=== PATIENT | male | born 1950 | race Caucasian/White ===

== ENCOUNTER 2016-08-09 19:29 | Emergency (ER) | payer OTHER ==
[2016-08-09 19:58] VITALS: BP 177/57
[2016-08-09] MEDS ORDERED: DIPH/PERTUSS(ACELL)/TETANUS VAC/PF 0.5 ML SYR (>=10YO) IM ONE (21:15)
[2016-08-09] MEDS ORDERED: HYDROCODONE/ACETAMINOPHEN 5-325 MG TABLET PO ONE (21:17)
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
[2016-08-10] MEDS ORDERED: HYDROCODONE/ACETAMINOPHEN 5-325 MG TABLET PO ONE ×2 (00:33→03:01)
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
[2016-08-10] MEDS ORDERED: DIPH/PERTUSS(ACELL)/TETANUS VAC/PF 0.5 ML SYR (>=10YO) IM ONE (03:19)
== END 2016-08-10 05:10 | disposition short-term general hospital (02) ==
LOC: ER 19:29
DX: S22.069A Unspecified fracture of T7-T8 vertebra, initial encounter for closed fracture (principal); S20.319A Abrasion of unspecified front wall of thorax, initial encounter; M54.6 Pain in thoracic spine; M79.631 Pain in right forearm; V59.49XA Driver of pick-up truck or van injured in collision with other motor vehicles in traffic accident, initial encounter
CPT/HCPCS: 71010; 72125; 72128; 90715; 99284

== ENCOUNTER 2017-07-01 22:13 | Inpatient (IN) | payer OTHER ==
[~2017-07-01 22:13] MED LIST: GLYCOPYRROLATE INJ 0.4 MG/2 ML VIAL ONE; NEOSTIGMINE METHYLSULFATE 10 MG/10 ML VIAL ONE; ONDANSETRON HCL INJ/PF 4 MG/2 ML SDV ONE; PHENYLEPHRINE HCL INJ/PF 10 MG/1 ML SDV ONE; ROCURONIUM BROMIDE INJ 50 MG/5 ML VIAL IV ONE; SUCCINYLCHOLINE CHLORIDE INJ 200 MG/10 ML VIAL ONE
[2017-07-01] MEDS ORDERED: MORPHINE SULFATE 10 MG/ML INJ IV PRN (22:34)
[2017-07-01] MEDS ORDERED: ONDANSETRON HCL INJ/PF 4 MG/2 ML SDV IV ONE (22:34)
--- NOTE | 2017-07-01 22:35 | ER Document Report ---
ED General - General Chief Complaint: Abdominal Pain Stated Complaint: ABDOMINAL PAIN Time Seen by Provider: 07/01/17 22:23 Notes: Patient is a 66-year-old male with past medical history of hypertension, hyperlipidemia, diabetes, who presents with 6 hours of severe ventral hernia pain. Patient reports a long-standing history of a ventral hernia he notes that sometimes it develops mild discomfort but is easily resolve if he pushes on the area or lies flat. He however today states that approximately 6 hours prior to arrival he noticed that the ventral hernia had become very firm and extremely painful. He describes it as a severe, constant, throbbing pain. He notes approximately 3-4 hours after onset of the pain he began vomiting and has continued to vomit since that time. He denies any history of similar symptoms in the past. Nothing improves or worsens his symptoms. He denies any fever or constitutional symptoms. He has not seen his general doctor regarding today's concerns. The ventral hernia has never been repaired in the past. TRAVEL OUTSIDE OF THE [place] IN LAST 30 DAYS: No - Related Data Allergies/Adverse Reactions: statins Allergy (Uncoded 12/27/16 21:17) Past Medical History - General Information source: Patient - Social History Smoking Status: Never Smoker Frequency of alcohol use: None Drug Abuse: None Lives with: Family Family History: Reviewed & Not Pertinent Endocrine Medical History: Reports: Hx Diabetes Mellitus Type 2 Renal/ Medical History: Denies: Hx Peritoneal Dialysis - Immunizations Hx Diphtheria, Pertussis, Tetanus Vaccination: Yes Review of Systems - Review of Systems Notes: Constitutional: Negative for fever. HENT: Negative for sore throat. Eyes: Negative for visual changes. Cardiovascular: Negative for chest pain. Respiratory: Negative for shortness of breath. Gastrointestinal: Positive for abdominal pain and vomiting Genitourinary: Negative for dysuria. Musculoskeletal: Negative for back pain. Skin: Negative for rash. Neurological: Negative for headaches, weakness or numbness. 10 point ROS negative except as marked above and in HPI. Physical Exam - Vital signs Vitals: Temp Pulse Resp BP Pulse Ox 97.6 F 63 16 153/53 H 97 07/01/17 22:35 07/01/17 22:35 07/01/17 22:35 07/01/17 22:35 07/01/17 22:35 Interpretation: Hypertensive Notes: PHYSICAL EXAMINATION: GENERAL: Appears obviously uncomfortable but in no acute distress HEAD: Atraumatic, normocephalic. EYES: Pupils equal round and reactive to light, extraocular movements intact, sclera anicteric, conjunctiva are normal. ENT: nares patent, oropharynx clear without exudates. Moist mucous membranes. NECK: Normal range of motion, supple without lymphadenopathy LUNGS: Breath sounds clear to auscultation bilaterally and equal. No wheezes rales or rhonchi. HEART: Regular rate and rhythm without murmurs ABDOMEN: Morbidly obese abdomen. There is a large ventral hernia to the right mid abdomen that is firm, exquisitely tender to palpation and unable to be reduced with direct palpation. EXTREMITIES: Normal range of motion, no pitting or edema. No cyanosis. NEUROLOGICAL: No focal neurological deficits. Moves all extremities spontaneously and on command. PSYCH: Normal mood, normal affect. SKIN: Warm, Dry, normal turgor, no rashes or lesions noted. Course - Re-evaluation Re-evalutation: 07/01/17 22:34 Patient presents with an acute incarcerated ventral hernia that apparently came out at 3 PM and has continued to persist with now associated vomiting. I am concerned that this is an acutely incarcerated hernia given the patient's degree of pain and the firm nature of the hernia on palpation. I am unable to reduce it with 5 minutes of continuous gentle pressure at the bedside. I have contacted the surgeon elevator constructor supervisor Dr. Fish and he will come to assess the patient. 07/01/17 23:02 Dr. Fish has accepted the patient to the OR for an acute incarcerated hernia. Basic laboratories will be obtained, IV will be established. He is NPO. - Vital Signs Vital signs: Temp Pulse Resp BP Pulse Ox 98.8 F 71 17 144/57 H 97 07/02/17 02:25 07/02/17 02:25 07/02/17 02:25 07/02/17 02:25 07/02/17 02:25 - Laboratory Result Diagrams: 07/01/17 23:27 07/01/17 23:27 Laboratory results interpreted by me: 07/01/17 07/01/17 23:27 23:27 WBC 12.3 H RDW 14.5 H Seg Neuts % (Manual) 93 H Lymphocytes % (Manual) 3 L Abs Neuts (Manual) 11.4 H Abs Lymphs (Manual) 0.4 L Sodium 145.3 H Potassium 5.2 H BUN 38 H Creatinine 1.30 H Est GFR (Non-Af Amer) 56 L Glucose 195 H Discharge - Discharge Clinical Impression: Incarcerated ventral hernia Condition: Fair Disposition: ADMITTED INPATIENT Admitting Provider: Surgicalist Unit Admitted: OR
[2017-07-01] MEDS ORDERED: FENTANYL CITRATE INJ/PF 250 MCG/5 ML AMPULE ONE (23:13)
[2017-07-01] MEDS ORDERED: MORPHINE SULFATE 10 MG/ML INJ ONE (23:14)
[2017-07-01] MEDS ORDERED: ACETAMINOPHEN 100 ML IV ONE (23:14)
[2017-07-01] MEDS ORDERED: MIDAZOLAM 2 MG/2 ML INJ ONE (23:14)
[2017-07-01] MEDS ORDERED: PROPOFOL INJ 200 MG/20 ML VIAL IV ONE (23:14)
--- NOTE | 2017-07-01 23:16 | PDOC H&P ---
History of Present Illness Patient complains of: abdominal pain, nausea, vomiting, incarcerated hernia History of Present Illness: JUDY SANTANA is a 66 year old male with a long-standing periumbilical, incisional hernia. The patient reports that at approximately 3 PM today the hernia protruded and became irreducible. The patient's pain has consistently increased since that time. The patient rates his pain as 10 out of 10 at present. Nothing makes the pain better, movement or palpation make it worse. The patient reports persistent, unrelenting nausea and vomiting. The patient denies chest pain, shortness of breath, dizziness, orthostasis, fatigue, blurry vision. He has experienced malaise. Past Medical History Cardiac Medical History: Reports: Coronary Artery Disease, Hyperlipidema, Hypertension Endocrine Medical History: Reports: Diabetes Mellitus Type 2 Past Surgical History Past Surgical History: Reports: Coronary Artery Bypass Graft, Other - Colon resection Social History Information Source: Patient Smoking Status: Never Smoker Frequency of Alcohol Use: Occasional Hx Recreational Drug Use: No Drugs: None Family History Family History: Reviewed & Not Pertinent Parental Family History Reviewed: Yes Children Family History Reviewed: Yes Sibling(s) Family History Reviewed.: Yes Medication/Allergy Home Medications: Amlodipine Besylate 5 mg PO DAILY 12/27/16 Aspirin [Aspirin EC] 81 mg PO DAILY 12/27/16 Atorvastatin Calcium 80 mg PO QHS 12/27/16 Cephalexin [Cephalexin 500 MG Capsule] 500 mg PO Q12H 12/27/16 Etodolac 300 mg PO TID 12/27/16 Finasteride 5 mg PO DAILY 12/27/16 Furosemide [Lasix] 40 mg PO BID 12/27/16 Lisinopril 40 mg PO DAILY 12/27/16 Metoprolol Tartrate 25 mg PO BID 12/27/16 Sertraline HCl 100 mg PO QHS 12/27/16 Tamsulosin HCl 0.4 mg PO QHS 12/27/16 Tramadol HCl 50 mg PO TID 12/27/16 Insulin Regular, Human [Novolin R] 100 unit IJ [id number] 12/28/16 Allergies/Adverse Reactions: statins Allergy (Uncoded 12/27/16 21:17) Review of Systems Constitutional: ABSENT: chills, fever(s), headache(s) Eyes: ABSENT: visual disturbances Nose, Mouth, and Throat: ABSENT: sore throat Cardiovascular: ABSENT: chest pain, dyspnea on exertion Respiratory: ABSENT: cough, dyspnea, hemoptysis Gastrointestinal: PRESENT: abdominal pain, bloating, nausea, vomiting Genitourinary: ABSENT: dysuria Musculoskeletal: PRESENT: other - Joint pain Integumentary: ABSENT: erythema, rash Neurological: ABSENT: abnormal movements, abnormal speech, confusion, dizziness Psychiatric: ABSENT: anxiety, depression, hallucinations Endocrine: ABSENT: cold intolerance, heat intolerance Hematologic/Lymphatic: ABSENT: easy bleeding, easy bruising, lymphadenopathy Physical Exam Vital Signs: Temp Pulse Resp BP Pulse Ox 97.6 F 63 16 153/53 H 97 07/01/17 22:35 07/01/17 22:35 07/01/17 22:35 07/01/17 22:35 07/01/17 22:35 Intake & Output 06/30/17 07/01/17 07/02/17 06:59 06:59 06:59 Weight 102.058 kg General appearance: PRESENT: mild distress Head exam: PRESENT: atraumatic, normocephalic Eye exam: PRESENT: EOMI, PERRLA. ABSENT: conjunctival injection, scleral icterus Mouth exam: PRESENT: moist, neck supple Teeth exam: ABSENT: poor dentation Neck exam: ABSENT: lymphadenopathy, meningismus, tenderness, thyromegaly, tracheal deviation Respiratory exam: PRESENT: clear to auscultation mariam. ABSENT: chest wall tenderness, rales, rhonchi Cardiovascular exam: PRESENT: RRR Pulses: PRESENT: normal radial pulses Vascular exam: PRESENT: normal capillary refill. ABSENT: pallor GI/Abdominal exam: PRESENT: distended, hernia - Incarcerated, tender, periumbilical., tenderness Rectal exam: PRESENT: deferred Extremities exam: PRESENT: joint swelling Neurological exam: PRESENT: alert, awake, oriented to person, oriented to place , oriented to time, CN II-XII grossly intact Psychiatric exam: ABSENT: agitated, depressed Skin exam: ABSENT: cyanosis, erythema, jaundice Assessment & Plan - Inpatient Certification Based on my medical assessment, after consideration of the patient's comorbidities, presenting symptoms, or acuity I expect that the services needed warrant INPATIENT care.: Yes I certify that my determination is in accordance with my understanding of Medicare's requirements for reasonable and necessary INPATIENT services [42 CFR 412.3e].: Yes Medical Necessity: Need For IV Fluids, Need for Surgery - Plan Summary Plan Summary: This is a 66-year-old morbidly obese male with an incarcerated, obstructed ventral hernia. Despite aggressive manipulation, the hernia could not be reduced at bedside. I have recommended surgical exploration to relieve the obstruction and hopefully avoid strangulation. I plan for exploratory laparotomy with reduction of the hernia and primary closure. This has been discussed with the patient and his family at length. They are in agreement with the treatment plan.
[2017-07-01] MEDS ORDERED: BUPIVACAINE HCL 0.25 % INJ/PF (2.5 MG/1 ML) 30 ML VIAL ONE (23:32)
[2017-07-01 23:41] LABS: HEMATOCRIT 41.5 % (37.9-51.0); MEAN CORPUSCULAR HEMOGLOBIN 30.9 pg (27.0-33.4); MEAN CORPUSCULAR HGB CONC 33.7 g/dL (32.0-36.0); MEAN CORPUSCULAR VOLUME 92 fl (80-97); PLATELET COUNT 172 10^3/uL (150-450); RED BLOOD COUNT 4.53 10^6/uL (4.35-5.55); RED CELL DISTRIBUTION WIDTH 14.5 % (11.5-14.0); WHITE BLOOD COUNT 12.3 10^3/uL (4.0-10.5)
[2017-07-02 00:04] LABS: ALANINE AMINOTRANSFERASE 23 U/L (21-72); ALBUMIN 4.2 g/dL (3.5-5.0); ALKALINE PHOSPHATASE 110 U/L (38-126); ANION GAP 15 (5-19); ASPARTATE AMINO TRANSFERASE 24 U/L (17-59); BILIRUBIN,DIRECT 0.4 mg/dL (0.0-0.4); BILIRUBIN,TOTAL 1.2 mg/dL (0.2-1.3); BLOOD UREA NITROGEN 38 mg/dL (7-20); CARBON DIOXIDE 23 mmol/L (22-30); CHLORIDE 107 mmol/L (98-107); GLUCOSE 195 mg/dL (75-110); POTASSIUM 5.2 mmol/L (3.6-5.0); SODIUM 145.3 mmol/L (137-145); TOTAL PROTEIN 6.9 g/dL (6.3-8.2)
[2017-07-02 00:06] LABS: ABSOLUTE LYMPHOCYTES# (MANUAL) 0.4 10^3/uL (0.5-4.7); ABSOLUTE MONOCYTES # (MANUAL) 0.5 10^3/uL (0.1-1.4); ABSOLUTE NEUTROPHILS# (MANUAL) 11.4 10^3/uL (1.7-8.2); BASOPHILS % (MANUAL) 0 % (0-2); EOSINOPHILS % (MANUAL) 0 % (0-6); LYMPHOCYTES % (MANUAL) 3 % (13-45); MONOCYTES % (MANUAL) 4 % (3-13); SEGMENTED NEUTROPHILS % (MAN) 93 % (42-78); TOTAL CELLS COUNTED 100
[2017-07-02 00:07] LABS: ANISOCYTOSIS SLIGHT; PLATELET COMMENT ADEQUATE; TOXIC GRANULATION SLIGHT; TOXIC VACUOLATION PRESENT
[2017-07-02] MEDS ORDERED: CEFAZOLIN INJ 1 GM VIAL ONE (00:28)
[2017-07-02] MEDS ORDERED: METRONIDAZOLE 500 MG/NS RTU 100 ML IV ONE (00:30)
[2017-07-02] MEDS ORDERED: MORPHINE SULFATE 10 MG/ML INJ IV PRN (00:40)
[2017-07-02] MEDS ORDERED: MEPERIDINE HCL/PF INJ 25 MG/1 ML DISP.SYRIN IV PRN (00:40)
[2017-07-02] MEDS ORDERED: FENTANYL CITRATE INJ/PF 100 MCG/2 ML AMPUL IV PRN ×3 (00:40)
[2017-07-02] MEDS ORDERED: DIPHENHYDRAMINE HCL 50 MG/ML VIAL IV PRN (00:40)
[2017-07-02] MEDS ORDERED: PROMETHAZINE HCL INJ 25 MG/1 ML VIAL IV PRN ×2 (00:40)
[2017-07-02] MEDS ORDERED: POTASSI CL 20 MEQ/1/2NS 1L 20 MEQ/1,000 ML RTUINJ IV PRN (02:36)
[2017-07-02] MEDS ORDERED: INSULIN REG, HUMAN 100 UNIT/ML 3 ML VIAL (PYX) SUBCUT PRN (02:36)
[2017-07-02] MEDS ORDERED: ONDANSETRON HCL INJ/PF 4 MG/2 ML SDV IV PRN (02:36)
[2017-07-02] MEDS ORDERED: CEPHALEXIN 500 MG CAPSULE ONE (03:45)
[2017-07-02] MEDS: MORPHINE SULFATE 10 MG/ML INJ IV PRN ×3 (03:55→20:42)
[2017-07-02] MEDS ORDERED: DEXTROSE 40% GEL 15 GM TUBE PO PRN ×2 (08:07)
[2017-07-02] MEDS ORDERED: DEXTROSE 50%-WATER 25 GM/50 ML DISP.SYRIN IV PRN ×2 (08:07)
[2017-07-02] MEDS ORDERED: GLUCAGON,HUMAN RECOMB 1 MG INJ IM PRN (08:07)
--- NOTE | 2017-07-02 08:44 | EKG REPORT ---
SEVERITY:- ABNORMAL ECG - SINUS RHYTHM NONSPECIFIC INTRAVENTRICULAR CONDUCTION DELAY INFERIOR INFARCT, AGE INDETERMINATE ABNRM R PROG, CONSIDER ASMI. : Confirmed by: Chad Heard MD 02-Jul-2017 08:43:58
[2017-07-02] MEDS: METOPROLOL TARTRATE 25 MG TABLET PO SCH ×2 (09:22→17:19)
[2017-07-02] MEDS: ASPIRIN 81 MG TABLET, ENT COATED PO SCH (09:23)
[2017-07-02] MEDS: TRAMADOL HCL 50 MG TABLET PO SCH ×3 (09:23→17:20)
[2017-07-02] MEDS: CEPHALEXIN 500 MG CAPSULE PO SCH ×2 (09:25→21:41)
[2017-07-02] MEDS: FINASTERIDE 5 MG TABLET PO SCH (09:25)
[2017-07-02] MEDS: ENOXAPARIN SODIUM INJ 40 MG/0.4 ML DISP.SYRIN SUBCUT SCH (09:26)
[2017-07-02 09:43] LABS: ANION GAP 12 (5-19); BLOOD UREA NITROGEN 38 mg/dL (7-20); CALCIUM 8.9 mg/dL (8.4-10.2); CARBON DIOXIDE 23 mmol/L (22-30); CHLORIDE 109 mmol/L (98-107); GLUCOSE 182 mg/dL (75-110); PHOSPHORUS 4.5 mg/dL (2.5-4.5); SODIUM 143.7 mmol/L (137-145)
[2017-07-02 09:47] LABS: ABSOLUTE EOSINOPHILS # (AUTO) 0.1 10^3/uL (0.0-0.6); ABSOLUTE LYMPHOCYTES (AUTO) 0.4 10^3/uL (0.5-4.7); ABSOLUTE MONOCYTES (AUTO) 0.7 10^3/uL (0.1-1.4); ABSOLUTE NEUT (AUTO) 5.3 10^3/uL (1.7-8.2); BASOPHILS % (AUTO) 0.4 % (0-2); EOSINOPHILS % (AUTO) 1.6 % (0-6); HEMATOCRIT 34.2 % (37.9-51.0); LYMPHOCYTES % (AUTO) 6.1 % (13-45); MEAN CORPUSCULAR HGB CONC 33.6 g/dL (32.0-36.0); MEAN CORPUSCULAR VOLUME 92 fl (80-97); MONOCYTES % (AUTO) 10.2 % (3-13); PLATELET COUNT 157 10^3/uL (150-450); RED CELL DISTRIBUTION WIDTH 14.4 % (11.5-14.0); SEGMENTED NEUTROPHILS % (AUTO) 81.7 % (42-78); TOTAL CELLS COUNTED % (AUTO) 100 %; WHITE BLOOD COUNT 6.5 10^3/uL (4.0-10.5)
[2017-07-02] MEDS ORDERED: AMLODIPINE BESYLATE 5 MG TABLET PO SCH (10:00)
[2017-07-02 10:08] LABS: HEMOGLOBIN 11.5 g/dL (13.5-17.0)
--- NOTE | 2017-07-02 13:06 | Operative Report ---
Nonrecallable Operative Report DATE OF SURGERY: 07/02/17 PREOPERATIVE DIAGNOSIS: 1. Bowel obstruction. 2. Incarcerated incisional periumbilical ventral hernia POSTOPERATIVE DIAGNOSIS: 1. Bowel obstruction. 2. Incarcerated incisional periumbilical ventral hernia. 3. Dense intestinal adhesions. 4. No sign of bowel wall compromise OPERATION: 1. Exploratory laparotomy. 2. Repair of incisional ventral periumbilical hernia. 3. Extensive enterolysis. 4. Implantation of [employer]- A mesh SURGEON: HOME CROSS ANESTHESIA: GA TISSUE REMOVED OR ALTERED: Hernia sac COMPLICATIONS: None apparent ESTIMATED BLOOD LOSS: 50 cc PROCEDURE: Drains/implants: [employer] hernia mesh (9 x 15 cm) After informed consent was obtained, the patient was laid in the supine position. The area of the abdomen was prepped and draped in normal sterile fashion. A 10 blade scalpel was used to create an incision over the hernia in the periumbilical area. The old scar was used and lengthened superiorly. Sharp dissection was used to open the hernia sac. The small bowel was incarcerated within the sac and there was obvious obstruction present. There was no evidence of bowel wall necrosis. The abdominal cavity was opened using sharp dissection. The linea alba fascia was incised proximally and distally to the hernia defect. During this maneuver dense intra-abdominal adhesions were identified. These adhesions were from the small bowel to small bowel, and the small bowel to anterior abdominal wall. These adhesions were lysed sharply. This was done with great care so as not to injure the small intestine. Once the lysis of adhesions was complete, the small intestines were eviscerated and inspected. There was no evidence of bowel wall necrosis or permanent stricturing of the intestine. Once this was confirmed, the intestinal contents were milked distally. This was successful. The intestines were then returned to the abdominal cavity, and closure was undertaken. Due to the patient's morbid obesity, a hernia mesh would be necessary in order to adequately close the abdominal cavity. A permanent prosthetic material is contraindicated in this patient due to his extremely high risk of recurrence. In light of this, a [employer] absorbable collagen mesh was chosen as a buttress. The 9 x 15 cm [employer] mesh was placed into the abdominal cavity and sutured to the anterior abdominal wall with #1 Vicryl suture in circumferential mattress fashion. After this was complete, the abdominal wall was closed using #1 Prolene suture in [id number] fashion. The overlying skin was then closed using skin jasen. A dressing was fashioned, and the procedure was concluded. All sponge, instrument, and needle counts were correct 2. Condition: Fair.
--- NOTE | 2017-07-02 13:44 | PDOC CONSULTATION ---
Consultation Consult Date: 07/02/17 Attending physician:: HOME CROSS Consult reason:: Diabetes management History of Present Illness Admission Date/PCP: 07/01/17 23:29 [facility] Patient complains of: abdominal pain History of Present Illness: 66-year-old gentleman with a long-standing periumbilical incisional hernia presented to the hospital on July 01 with sudden onset abdominal pain. On the afternoon of admission his hernia protruded and became reducible. He also reported persistent nausea and vomiting. Past medical history: Coronary artery disease Hypertension Hyperlipidemia Past surgical history: CABG Colon resection He was evaluated by the surgical service, and despite aggressive manipulation the hernia could not be reduced at bedside. He underwent surgical exploration to relieve the obstruction and avoid strangulation. The medical service was consulted for management of his coronary artery disease hypertension and diabetes. Home Medications: Norvasc 5 mg daily Aspirin 81 mg daily Atorvastatin 80 mg Keflex 500 every 12 Finasteride 5 mg daily Etodolac 300 mg 3 times a day Lasix 40 mg twice a day Lisinopril 40 mg daily Metoprolol tartrate 25 mg twice a day Zoloft 100 mg at bedtime Flomax 0.4 mg at bedtime Tramadol 50 mg 3 times a day Lantus 35 units at bedtime NovoLog 10 units before meals plus sliding scale. He had a stress test on Tuesday in anticipation for hip replacement surgery in the near future. He does not know the results of the stress test. No complaints at present. Past Medical History Cardiac Medical History: Reports: Coronary Artery Disease, Hyperlipidema, Hypertension Endocrine Medical History: Reports: Diabetes Mellitus Type 2 Psychiatric Medical History: Denies: Depression Past Surgical History Past Surgical History: Reports: Coronary Artery Bypass Graft, Other - Colon resection Social History Information Source: Patient Lives with: Family Smoking Status: Never Smoker Frequency of Alcohol Use: None Hx Recreational Drug Use: No Drugs: None Hx Prescription Drug Abuse: No - Advance Directive Resuscitation Status: Full Code Family History Family History: Hypertension Parental Family History Reviewed: Yes Children Family History Reviewed: Yes Sibling(s) Family History Reviewed.: Yes Medication/Allergy Home Medications: Amlodipine Besylate 5 mg PO DAILY 12/27/16 Aspirin [Aspirin EC] 81 mg PO DAILY 12/27/16 Atorvastatin Calcium 40 mg PO QHS 12/27/16 Cephalexin [Cephalexin 500 MG Capsule] 500 mg PO Q12H 12/27/16 Etodolac 300 mg PO TID 12/27/16 Finasteride 5 mg PO DAILY 12/27/16 Furosemide [Lasix] 40 mg PO ONCE PRN 12/27/16 Lisinopril 40 mg PO DAILY 12/27/16 Metoprolol Tartrate 25 mg PO BID 12/27/16 Sertraline HCl 100 mg PO QHS 12/27/16 Tamsulosin HCl 0.4 mg PO QHS 12/27/16 Tramadol HCl 50 mg PO TIDP PRN 12/27/16 Insulin Aspart [Novolog Insulin 100 Unit/1 ml 10 ml] 0 unit SUBCUT .SLD SCALE Insulin Glargine,Hum.rec.anlog [Lantus Insulin 100 Unit/1 ml 10 ml] 35 unit SUBCUT QHS 07/02/17 Allergies/Adverse Reactions: statins Allergy (Uncoded 12/27/16 21:17) Review of Systems Constitutional: ABSENT: fever(s) Eyes: ABSENT: visual disturbances Ears: ABSENT: hearing changes Nose, Mouth, and Throat: ABSENT: sore throat Cardiovascular: ABSENT: chest pain, edema Respiratory: ABSENT: dyspnea Gastrointestinal: PRESENT: abdominal pain Genitourinary: ABSENT: dysuria Integumentary: ABSENT: rash Neurological: ABSENT: focal weakness Psychiatric: ABSENT: hallucinations Endocrine: ABSENT: heat intolerance Hematologic/Lymphatic: ABSENT: easy bleeding Allergic/Immunologic: ABSENT: seasonal rhinorrhea Physical Exam Vital Signs: Temp Pulse Resp BP Pulse Ox 98.4 F 67 17 128/55 H 96 07/02/17 06:13 07/02/17 06:13 07/02/17 06:13 07/02/17 06:13 07/02/17 06:13 Pulse Oximeter Continuous Start: 07/02/17 04: 25 Freq: Status: Complete Document 07/02/17 04:25 EST (Rec: 07/02/17 04:26 EST [email or web address]) Pulse Oximetry Assessment Oxygen Saturation (92-100) 97 Oxygen Delivery Method Room Air Fraction of Inspired Oxygen (FIO2) 21 Equipment Usage Initial Set Up Continuous Pulse Oximeter 24 Hour Charge Charge Now Continuous SpO2 Machine # 8 Intake & Output 07/01/17 07/02/17 07/03/17 06:59 06:59 06:59 Intake Total 1650 Output Total 515 Balance 1135 Weight 159.2 kg General appearance: PRESENT: obese Head exam: PRESENT: normocephalic Ear exam: PRESENT: normal external ear exam Mouth exam: PRESENT: moist Neck exam: ABSENT: tracheal deviation Respiratory exam: PRESENT: clear to auscultation mariam, symmetrical, unlabored Cardiovascular exam: PRESENT: RRR GI/Abdominal exam: PRESENT: diminished bowel sounds, soft Rectal exam: PRESENT: deferred Musculoskeletal exam: PRESENT: normal inspection Neurological exam: PRESENT: alert, awake, oriented to person, oriented to place , oriented to time, oriented to situation Psychiatric exam: PRESENT: appropriate affect Skin exam: ABSENT: petechiae Assessment & Plan - Diagnosis (1) Hernia, incisional, with obstruction Is this a current diagnosis for this admission?: Yes Plan: Management per Surgical service (2) Hypertension Is this a current diagnosis for this admission?: Yes Plan: Monitor and start outpatient meds if needed. BP running low normal now. (3) CAD (coronary artery disease) Is this a current diagnosis for this admission?: Yes Plan: Restart outpatient medications once able to take p.o. (4) Diabetes 1.5, managed as type 2 Is this a current diagnosis for this admission?: Yes Plan: Insulin sliding scale for now. He continues to be n.p.o. (5) Osteoarthritis Is this a current diagnosis for this admission?: Yes Plan: Analgesics as needed (6) BPH (benign prostatic hyperplasia) Is this a current diagnosis for this admission?: Yes Plan: Continue outpatient medications once able to take p.o. - Time Time Spent: 50 to 70 Minutes
--- NOTE | 2017-07-02 14:03 | PDOC PROGRESS REPORT ---
Subjective Reason For Visit: IRREDUCIBLE HERNIA OF ANTERIOR ABDOMINAL WALL Physical Exam Vital Signs: Temp Pulse Resp BP Pulse Ox 98.9 F 72 17 101/28 L 97 07/02/17 11:42 07/02/17 11:42 07/02/17 11:42 07/02/17 11:42 07/02/17 12:02 Pulse Oximeter Continuous Start: 07/02/17 04: 25 Freq: Status: Complete Document 07/02/17 04:25 EST (Rec: 07/02/17 04:26 EST [email or web address]) Pulse Oximetry Assessment Oxygen Saturation (92-100) 97 Oxygen Delivery Method Room Air Fraction of Inspired Oxygen (FIO2) 21 Equipment Usage Initial Set Up Continuous Pulse Oximeter 24 Hour Charge Charge Now Continuous SpO2 Machine # 8 Pulse Oximeter Continuous Start: 07/02/17 01: 50 Freq: RTQ4 Status: Active Document 07/02/17 12:02 [facility] (Rec: 07/02/17 12:02 [facility] [email or web address]) Pulse Oximetry Assessment Oxygen Saturation (92-100) 97 Oxygen Delivery Method Room Air Equipment Usage Equipment in Use Continuous SpO2 Machine # 8 Intake & Output 07/01/17 07/02/17 07/03/17 06:59 06:59 06:59 Intake Total 1650 303 Output Total 515 Balance 1135 303 Weight 159.2 kg Results Laboratory Results: 07/02/17 08:33 07/02/17 08:33 07/02/17 07/02/17 08:33 08:33 WBC 6.5 RBC 3.70 L Hgb 11.5 L D Hct 34.2 L MCV 92 MCH 31.0 MCHC 33.6 RDW 14.4 H Plt Count 157 Seg Neutrophils % 81.7 H Lymphocytes % 6.1 L Monocytes % 10.2 Eosinophils % 1.6 Basophils % 0.4 Absolute Neutrophils 5.3 Absolute Lymphocytes 0.4 L Absolute Monocytes 0.7 Absolute Eosinophils 0.1 Absolute Basophils 0.0 Sodium 143.7 Potassium 5.0 Chloride 109 H Carbon Dioxide 23 Anion Gap 12 BUN 38 H Creatinine 1.23 Est GFR ( Amer) > 60 Est GFR (Non-Af Amer) 59 L Glucose 182 H Calcium 8.9 Phosphorus 4.5 Magnesium 2.0 07/02/17 08:33 NT-Pro-B Natriuret Pep 1080 H Assessment & Plan - Diagnosis (1) Hernia, incisional, with obstruction Is this a current diagnosis for this admission?: Yes - Plan Summary Plan Summary: 66-year-old male status post reduction of an incarcerated ventral hernia with lysis of adhesions for obstruction. Patient is doing well. His pain is controlled. His dressing is clean, dry, and intact. Patient should be out of bed today. I have encouraged him to use his incentive spirometer. The hospitalist is following for medical management.
[2017-07-02] MEDS: NORMAL SALINE 1000 ML 1,000 ML IV PRN (14:08)
[2017-07-02] MEDS ORDERED: ACETAMINOPHEN 650 MG SUPP.RECT PR PRN (15:49)
--- NOTE | 2017-07-02 16:00 | PDOC CONSULTATION ---
Consultation Consult Date: 07/02/17 Attending physician:: VESNA DELGADO Consult reason:: CAD, optimization of medical management. History of Present Illness Admission Date/PCP: 07/01/17 23:29 Patient complains of: Abdominal discomfort History of Present Illness: Patient is a 66-year-old gentleman with known history of coronary artery disease , obesity, who had presented to the hospital with abdominal pain. Patient was noted to have a incarcerated abdominal wall hernia. This could not be reduced in spite of effort. Therefore patient underwent surgery and this hernia was reduced. Currently patient is recuperating. He is doing better. I was asked to help with management of underlying coronary artery disease. Patient is denying any chest pain. He is denying any shortness of breath while resting in bed. However does have shortness of breath on [id number] exertion. Patient denied any fever or chills. Patient has noted some diarrhea. Currently patient looks comfortable and stable from cardiac standpoint. Past Medical History Cardiac Medical History: Reports: Coronary Artery Disease, Hyperlipidema, Hypertension Pulmonary Medical History: Reports: Asthma Endocrine Medical History: Reports: Diabetes Mellitus Type 2 Psychiatric Medical History: Denies: Depression Past Surgical History Past Surgical History: Reports: Coronary Artery Bypass Graft, Other - Colon resection Social History Information Source: Patient Lives with: Family Smoking Status: Never Smoker Frequency of Alcohol Use: None Hx Recreational Drug Use: No Drugs: None Hx Prescription Drug Abuse: No - Advance Directive Resuscitation Status: Full Code Surrogate healthcare decision maker:: Patient's is the surrogate decision-maker Family History Family History: Hypertension Parental Family History Reviewed: Yes Children Family History Reviewed: Yes Sibling(s) Family History Reviewed.: Yes Medication/Allergy Home Medications: Amlodipine Besylate 10 mg PO DAILY 12/27/16 Aspirin [Aspirin EC] 81 mg PO DAILY 12/27/16 Atorvastatin Calcium 40 mg PO QHS 12/27/16 Cephalexin [Cephalexin 500 MG Capsule] 500 mg PO Q12H 12/27/16 Etodolac 300 mg PO TID 12/27/16 Finasteride 5 mg PO DAILY 12/27/16 Furosemide [Lasix] 40 mg PO ONCE PRN 12/27/16 Lisinopril 40 mg PO DAILY 12/27/16 Metoprolol Tartrate 25 mg PO BID 12/27/16 Sertraline HCl 50 mg PO QHS 12/27/16 Tamsulosin HCl 0.4 mg PO QHS 12/27/16 Tramadol HCl 50 mg PO TIDP PRN 12/27/16 Insulin Aspart [Novolog Insulin 100 Unit/1 ml 10 ml] 0 unit SUBCUT .SLD SCALE Insulin Glargine,Hum.rec.anlog [Lantus Insulin 100 Unit/1 ml 10 ml] 35 unit SUBCUT QHS 07/02/17 Allergies/Adverse Reactions: statins Allergy (Uncoded 12/27/16 21:17) Review of Systems Review of Systems: Please see history of present illness and past medical history as wall. Constitutional: No fever or chills reported. Head : No recent chronic headaches, recent head injury. Eyes: No recent eye pain, diplopia, redness, discharge, acute visual changes. Ears: No recent chronic ear pain, acute hearing loss, ear discharge. Oral cavity: No recent ulcerations, bleeding, oral cavity discomfort. Neck: No recent acute neck pain reported. Hematologic: No recent easy bruising or bleeding. Lymphatic: No recent lymph node enlargement reported. Cardiovascular system review: See history of present illness. Respiratory system review: No hemoptysis or blood clots in the lungs reported. Shortness of breath on exertion Gastrointestinal system review: Negative for any recent acute hematemesis, melena. Recent nausea vomiting and diarrhea. Recent abdominal pain. Genitourinary system review: No recent acute or chronic hematuria, flank pain, UTI etc. reported. Skin system review: Negative for any recent abnormal bruising, no rash, no pruritus reported. Neurologic: No prior history of strokes, mini strokes, seizure disorder. Psychologic: No history of major psychosis or major depression reported. Musculoskeletal: Minor aches and pains reported. No acute joint swelling reported. Endocrine: No recent polyuria, polydipsia, recent heat or cold intolerance. Physical Exam Vital Signs: Temp Pulse Resp BP Pulse Ox 98.9 F 72 17 124/48 L 97 07/02/17 11:42 07/02/17 11:42 07/02/17 11:42 07/02/17 12:00 07/02/17 12:02 Pulse Oximeter Continuous Start: 07/02/17 04: 25 Freq: Status: Complete Document 07/02/17 04:25 EST (Rec: 07/02/17 04:26 EST [email or web address]) Pulse Oximetry Assessment Oxygen Saturation (92-100) 97 Oxygen Delivery Method Room Air Fraction of Inspired Oxygen (FIO2) 21 Equipment Usage Initial Set Up Continuous Pulse Oximeter 24 Hour Charge Charge Now Continuous SpO2 Machine # 8 Pulse Oximeter Continuous Start: 07/02/17 01: 50 Freq: RTQ4 Status: Active Document 07/02/17 12:02 [facility] (Rec: 07/02/17 12[facility]02 [email or web address] Pulse Oximetry Assessment Oxygen Saturation (92-100) 97 Oxygen Delivery Method Room Air Equipment Usage Equipment in Use Continuous SpO2 Machine # 8 Intake & Output 07/01/17 07/02/17 07/03/17 06:59 06:59 06:59 Intake Total 1650 303 Output Total 515 Balance 1135 303 Weight 159.2 kg Exam: GENERAL: well-nourished and in no acute distress. Alert and oriented x3 HEAD: Atraumatic, normocephalic. EYES: Pupils equal round and reactive to light, extraocular movements intact, sclera anicteric, conjunctiva are normal. ENT: TMs normal, nares patent, oropharynx clear without exudates. Moist mucous membranes. No oral ulcerations or bleeding gums noted NECK: supple without lymphadenopathy. Trachea is central. No cervical or axillary lymphadenopathy noted. Carotids are 2+, JVD WNL LUNGS: Respiration seems nonlabored, no significant accessory muscle action noted. Breath sounds clear to auscultation bilaterally and equal noted. No wheezes rales or rhonchi noted. No significant dullness noted on percussion. CHEST: Palpation of the chest wall shows no significant chest wall tenderness. HEART: [place] [employer], No PSH, 1/6 CHANDLER aortic area, 1/6 bacon systolic murmur mitral area, no rubs, no gallops. ABDOMEN: Soft, postsurgical incisional tenderness appreciated, normoactive bowel sounds. No guarding, no rebound. No rigidity noted . No masses appreciated. EXTREMITIES: Pedal pulses are 1-2+, no calf tenderness noted. No clubbing or cyanosis. 1+ pedal edema noted NEUROLOGICAL: Focused neurological exam showed no significant neurologic deficit. Normal speech, no focal weakness appreciated. PSYCH: Normal mood, normal affect. Judgment and insight within normal limits. SKIN: No significant ecchymosis, skin is noted to be warm. MUSCULOSKELETAL EXAM: No significant acute joint swelling noted. Results Laboratory Results: 07/02/17 08:33 07/02/17 08:33 18 07/02/17 08:33 08:33 WBC 6.5 RBC 3.70 L Hgb 11.5 L D Hct 34.2 L MCV 92 MCH 31.0 MCHC 33.6 RDW 14.4 H Plt Count 157 Seg Neutrophils % 81.7 H Lymphocytes % 6.1 L Monocytes % 10.2 Eosinophils % 1.6 Basophils % 0.4 Absolute Neutrophils 5.3 Absolute Lymphocytes 0.4 L Absolute Monocytes 0.7 Absolute Eosinophils 0.1 Absolute Basophils 0.0 Sodium 143.7 Potassium 5.0 Chloride 109 H Carbon Dioxide 23 Anion Gap 12 BUN 38 H Creatinine 1.23 Est GFR ( Amer) > 60 Est GFR (Non-Af Amer) 59 L Glucose 182 H Calcium 8.9 Phosphorus 4.5 Magnesium 2.0 07/02/17 08:33 NT-Pro-B Natriuret Pep 1080 H EKG Comments: Sinus rhythm, evidence of inferior and prior anterior Q waves indicative of prior inferior anterior myocardial infarction. Minor nonspecific T-wave inversion change noted. Assessment & Plan - Diagnosis (1) CAD (coronary artery disease) Qualifiers: Coronary Disease-Associated Artery/Lesion type: unspecified vessel or lesion type [place] vs. transplanted heart: [place] heart Associated angina: angina presence unspecified Qualified Code(s): I25.10 - Atherosclerotic heart disease of [place] coronary artery without angina pectoris Is this a current diagnosis for this admission?: Yes (2) Diabetes Qualifiers: Diabetes mellitus type: type 2 Diabetes mellitus manager long term care insulin use: unspecified manager long term care insulin use status Diabetes mellitus complication status : with unspecified complications Qualified Code(s): E11.8 - Type 2 diabetes mellitus with unspecified complications Is this a current diagnosis for this admission?: Yes (3) Obesity Qualifiers: Obesity type: unspecified obesity type Obesity classification: unspecified obesity classification Is this a current diagnosis for this admission?: Yes (4) Hypertension Qualifiers: Hypertension type: essential hypertension Qualified Code(s): I10 - Essential (primary) hypertension Is this a current diagnosis for this admission?: Yes (5) Hyperlipidemia Qualifiers: Hyperlipidemia type: unspecified Qualified Code(s): E78.5 - Hyperlipidemia , unspecified Is this a current diagnosis for this admission?: Yes - Notes Notes: CAD: Patient has CAD. Currently stable without any angina or angina equivalent symptoms. Patient's home regimen was reviewed and is noted to be satisfactory. Will recommend restarting it. Diabetes: Recommend good control of blood sugar. However should avoid any hypoglycemia. Blood pressure goal in this patient is 135/85 or less. This was discussed with the patient. Currently blood pressure under reasonable control. Better medication for this patient are WANDY inhibitor/ARB/beta freddy etc. discussed side effects of uncontrolled hypertension and also severe hypotension. Hyperlipidemia: LDL goal is less than 70. Recommend statin therapy at least intermediate or high dose, of high potency status. Periodic lipid panel and liver panel is indicated. Obesity: Patient encouraged in weight loss. Sleep disorder: Discussed that he is likely to have this condition. Patient will benefit from further evaluation and management as an outpatient. - Time Time Spent: 30 to 50 Minutes - CODE STATUS was discussed, patient remains full code. Surrogate decision-maker patient's . Multiple medical problems were addressed. More than 50% of the time spent coordinating care, discussing management plans with involved caregivers. Management plans discussed with involved personnels. Medical decision making was of moderate to high complexity , patient's has multiple comorbidities. Medications reviewed and adjusted accordingly: Yes
[2017-07-02] MEDS: ACETAMINOPHEN 325 MG TABLET PO PRN (16:26)
--- NOTE | 2017-07-02 16:33 | RADIOLOGY REPORT (SQ) ---
EXAM DESCRIPTION: CHEST SINGLE VIEW COMPLETED DATE/TIME: 07/02/2017 4:20 pm REASON FOR STUDY: fever, shortness of breath COMPARISON: 12/27/2016. EXAM PARAMETERS: NUMBER OF VIEWS: One view. TECHNIQUE: Single frontal radiographic view of the chest acquired. RADIATION DOSE: NA LIMITATIONS: None. FINDINGS: LUNGS AND PLEURA: No acute infiltrates or effusions. Chronic left pleural thickening. Ch ronic scarring left lung base. MEDIASTINUM AND HILAR STRUCTURES: No masses. Contour normal. HEART AND VASCULAR STRUCTURES: Borderline cardiac size and changes of CABG and previous median sterno bienvenido. BONES: No acute findings. HARDWARE: None in the chest. OTHER: No other significant finding. IMPRESSION: Chronic left basilar scarring and pleural thickening. Borderline cardiomegaly. TECHNICAL DOCUMENTATION: JOB ID: [id number] 2010 [employer] [place]- All Rights Reserved Reading location - IP/workstation name: [email or web address]
[2017-07-02] MEDS: TAMSULOSIN HCL 0.4 MG CAP.SR.24H PO SCH (21:41)
[2017-07-02] MEDS: SERTRALINE HCL 50 MG TABLET PO SCH (21:41)
[2017-07-03] MEDS: ACETAMINOPHEN 325 MG TABLET PO PRN (00:32)
[2017-07-03] MEDS: INSULIN LISPRO 100 UNIT/ML 3 ML VIAL SUBCUT PRN ×4 (00:32→23:06)
[2017-07-03] MEDS: NORMAL SALINE 1000 ML 1,000 ML IV PRN ×2 (03:42→17:08)
[2017-07-03 05:00] LABS: ABSOLUTE EOSINOPHILS # (AUTO) 0.2 10^3/uL (0.0-0.6); ABSOLUTE LYMPHOCYTES (AUTO) 0.6 10^3/uL (0.5-4.7); ABSOLUTE MONOCYTES (AUTO) 0.9 10^3/uL (0.1-1.4); ABSOLUTE NEUT (AUTO) 3.2 10^3/uL (1.7-8.2); BASOPHILS % (AUTO) 0.7 % (0-2); EOSINOPHILS % (AUTO) 3.8 % (0-6); HEMOGLOBIN 11.3 g/dL (13.5-17.0); LYMPHOCYTES % (AUTO) 12.3 % (13-45); MEAN CORPUSCULAR HEMOGLOBIN 31.4 pg (27.0-33.4); MEAN CORPUSCULAR HGB CONC 34.2 g/dL (32.0-36.0); MEAN CORPUSCULAR VOLUME 92 fl (80-97); PLATELET COUNT 150 10^3/uL (150-450); RED CELL DISTRIBUTION WIDTH 14.8 % (11.5-14.0); SEGMENTED NEUTROPHILS % (AUTO) 65.2 % (42-78); TOTAL CELLS COUNTED % (AUTO) 100 %
[2017-07-03 05:24] LABS: ANION GAP 13 (5-19); BLOOD UREA NITROGEN 38 mg/dL (7-20); CALCIUM 8.5 mg/dL (8.4-10.2); CARBON DIOXIDE 22 mmol/L (22-30); CHLORIDE 111 mmol/L (98-107); GLUCOSE 165 mg/dL (75-110); POTASSIUM 4.5 mmol/L (3.6-5.0); SODIUM 145.8 mmol/L (137-145)
[2017-07-03] MEDS ORDERED: FUROSEMIDE 40 MG TABLET PO SCH (10:00)
[2017-07-03] MEDS: FINASTERIDE 5 MG TABLET PO SCH (10:58)
[2017-07-03] MEDS: ASPIRIN 81 MG TABLET, ENT COATED PO SCH (10:59)
[2017-07-03] MEDS: CEPHALEXIN 500 MG CAPSULE PO SCH ×2 (10:59→22:51)
[2017-07-03] MEDS: ENOXAPARIN SODIUM INJ 40 MG/0.4 ML DISP.SYRIN SUBCUT SCH (10:59)
[2017-07-03] MEDS: TRAMADOL HCL 50 MG TABLET PO SCH ×3 (10:59→22:50)
--- NOTE | 2017-07-03 11:56 | PDOC PROGRESS REPORT ---
Subjective Progress Note for:: 07/03/17 Subjective:: Patient seems to be doing better with gradual improvement. Patient seems quite a bit debilitated. Patient got very fatigued and tired as the physical therapist were assessing him. Patient seems to have decreased mobility. Pt is denying any chest arm or neck discomfort. Patient denying any PND, orthopnea. Patient denied any sustained palpitations, dizziness, syncope, near syncope. Patient denying any fever chills. Patient denying any other significant discomfort. Patient is maintaining sinus rhythm. Mild intermittent sinus bradycardia noted. Review of systems: Rest review of systems negative. Medications: Medications have been reviewed. Reason For Visit: IRREDUCIBLE HERNIA OF ANTERIOR ABDOMINAL WALL Physical Exam Vital Signs: Temp Pulse Resp BP Pulse Ox 98.9 F 54 L 20 130/48 H 94 07/03/17 08:00 07/03/17 08:00 07/03/17 08:00 07/03/17 08:00 07/03/17 08:00 Pulse Oximeter Continuous Start: 07/02/17 04: 25 Freq: Status: Complete Document 07/02/17 04:25 EST (Rec: 07/02/17 04:26 EST [email or web address]) Pulse Oximetry Assessment Oxygen Saturation (92-100) 97 Oxygen Delivery Method Room Air Fraction of Inspired Oxygen (FIO2) 21 Equipment Usage Initial Set Up Continuous Pulse Oximeter 24 Hour Charge Charge Now Continuous SpO2 Machine # 8 Pulse Oximeter Continuous Start: 07/02/17 01: 50 Freq: RTQ4 Status: Active Document 07/03/17 08:00 [facility] (Rec: 07/03/17 08:50 [facility] [email or web address]) Pulse Oximetry Assessment Oxygen Saturation (92-100) 94 Oxygen Delivery Method Room Air Equipment Usage Equipment in Use Continuous SpO2 Machine # 8 Intake & Output 07/02/17 07/03/17 07/04/17 06:59 06:59 06:59 Intake Total 1650 1203 Output Total 515 1125 Balance 1135 78 Weight 159.2 kg 160 kg Exam: GENERAL: well-nourished and in no acute distress. Alert and oriented x3 HEAD: Atraumatic, normocephalic. EYES: Pupils equal round and reactive to light, extraocular movements intact, sclera anicteric, conjunctiva are normal. ENT: TMs normal, nares patent, oropharynx clear without exudates. Moist mucous membranes. No oral ulcerations or bleeding gums noted NECK: supple without lymphadenopathy. Trachea is central. No cervical or axillary lymphadenopathy noted. Carotids are 2+, JVD WNL LUNGS: Respiration seems nonlabored, no significant accessory muscle action noted. Breath sounds clear to auscultation bilaterally and equal noted. No wheezes rales or rhonchi noted. No significant dullness noted on percussion. CHEST: Palpation of the chest wall shows no significant chest wall tenderness. HEART: [place] [employer], No PSH, 1/6 CHANDLER aortic area, 1/6 bacon systolic murmur mitral area, no rubs, no gallops. ABDOMEN: Soft, postsurgical changes noted with mild incisional tenderness, normoactive bowel sounds. No guarding, no rebound. No rigidity noted . No masses appreciated. EXTREMITIES: Pedal pulses are 1-2+, no calf tenderness noted. No clubbing or cyanosis. Trace to 1+ pedal edema noted NEUROLOGICAL: Focused neurological exam showed no significant neurologic deficit. Normal speech, no focal weakness appreciated. PSYCH: Normal mood, normal affect. Judgment and insight within normal limits. SKIN: No significant ecchymosis, skin is noted to be warm. Chronic dermatitis changes noted in lower legs. MUSCULOSKELETAL EXAM: No significant acute joint swelling noted. Results Laboratory Results: 07/03/17 04:16 07/03/17 04:16 07/03/17 07/03/17 04:16 04:16 WBC 5.0 RBC 3.60 L Hgb 11.3 L Hct 33.0 L MCV 92 MCH 31.4 MCHC 34.2 RDW 14.8 H Plt Count 150 Seg Neutrophils % 65.2 Lymphocytes % 12.3 L Monocytes % 18.0 H Eosinophils % 3.8 Basophils % 0.7 Absolute Neutrophils 3.2 Absolute Lymphocytes 0.6 Absolute Monocytes 0.9 Absolute Eosinophils 0.2 Absolute Basophils 0.0 Sodium 145.8 H Potassium 4.5 Chloride 111 H Carbon Dioxide 22 Anion Gap 13 BUN 38 H Creatinine 1.39 H Est GFR ( Amer) > 60 Est GFR (Non-Af Amer) 51 L Glucose 165 H Calcium 8.5 07/02/17 08:33 NT-Pro-B Natriuret Pep 1080 H EKG Comments: Sinus rhythm with intermittent sinus bradycardia Impressions: Chest X-Ray 07/02/17 00:00 IMPRESSION: Chronic left basilar scarring and pleural thickening. Borderline cardiomegaly. Assessment & Plan - Diagnosis (1) CAD (coronary artery disease) Qualifiers: Coronary Disease-Associated Artery/Lesion type: unspecified vessel or lesion type [place] vs. transplanted heart: [place] heart Associated angina: angina presence unspecified Qualified Code(s): I25.10 - Atherosclerotic heart disease of [place] coronary artery without angina pectoris Is this a current diagnosis for this admission?: Yes (2) Diabetes Qualifiers: Diabetes mellitus type: type 2 Diabetes mellitus fci insulin use: unspecified exterminator insulin use status Diabetes mellitus complication status : with unspecified complications Qualified Code(s): E11.8 - Type 2 diabetes mellitus with unspecified complications Is this a current diagnosis for this admission?: Yes (3) Obesity Qualifiers: Obesity type: unspecified obesity type Obesity classification: unspecified obesity classification Is this a current diagnosis for this admission?: Yes (4) Hypertension Qualifiers: Hypertension type: essential hypertension Qualified Code(s): I10 - Essential (primary) hypertension Is this a current diagnosis for this admission?: Yes (5) Hyperlipidemia Qualifiers: Hyperlipidemia type: unspecified Qualified Code(s): E78.5 - Hyperlipidemia , unspecified Is this a current diagnosis for this admission?: Yes - Notes Notes: Statins been listed as allergy. On talking to the patient, it seems patient was allergic to simvastatin and it caused leg pain. Patient is willing to try Lipitor at low-dose. Will start patient on Lipitor 10 mg p.o. nightly. Patient to report any muscle weakness or muscle pain. CAD: Patient has CAD. Currently stable without any angina or angina equivalent symptoms. Patient's home regimen was reviewed and is noted to be satisfactory. Patient was on lisinopril. Recommend restarting lisinopril. A 2D echo has been ordered. A EKG has been ordered for tomorrow. Diabetes: Recommend good control of blood sugar. However should avoid any hypoglycemia. Blood pressure goal in this patient is 135/85 or less. This was discussed with the patient. Currently blood pressure under reasonable control. Consider restarting WANDY inhibitor as patient was on lisinopril at home. Hyperlipidemia: LDL goal is less than 70. Statins listed as allergies. Periodic lipid panel and liver panel is indicated. Started patient on Lipitor 10 mg p.o. daily as statin allergy was felt to be not a true allergy. Obesity: Patient encouraged in weight loss. Sleep disorder: Discussed that he is likely to have this condition. Patient will benefit from further evaluation and management as an outpatient. - Time Time with patient: Greater than 35 minutes - More than 50% of the time spent coordinating care, discussing management plans with involved caregivers. Management plans discussed with involved personnels. Medical decision making was of moderate to high complexity, patient's has multiple comorbidities. Medications reviewed and adjusted accordingly: Yes
--- NOTE | 2017-07-03 12:17 | PDOC PROGRESS REPORT ---
Subjective Progress Note for:: 07/03/17 Subjective:: No complaints other than is hungry- would like something to eat. Would defer to surgical service. Passed flatus. Reason For Visit: IRREDUCIBLE HERNIA OF ANTERIOR ABDOMINAL WALL Physical Exam Vital Signs: Temp Pulse Resp BP Pulse Ox 98.1 F 62 20 130/45 H 96 07/03/17 12:00 07/03/17 12:00 07/03/17 12:00 07/03/17 12:00 07/03/17 12:00 Pulse Oximeter Continuous Start: 07/02/17 04: 25 Freq: Status: Complete Document 07/02/17 04:25 EST (Rec: 07/02/17 04:26 EST [email or web address]) Pulse Oximetry Assessment Oxygen Saturation (92-100) 97 Oxygen Delivery Method Room Air Fraction of Inspired Oxygen (FIO2) 21 Equipment Usage Initial Set Up Continuous Pulse Oximeter 24 Hour Charge Charge Now Continuous SpO2 Machine # 8 Pulse Oximeter Continuous Start: 07/02/17 01: 50 Freq: RTQ4 Status: Active Document 07/03/17 08:00 [facility] (Rec: 07/03/17 08:50 [facility] [email or web address]) Pulse Oximetry Assessment Oxygen Saturation (92-100) 94 Oxygen Delivery Method Room Air Equipment Usage Equipment in Use Continuous SpO2 Machine # 8 Intake & Output 07/02/17 07/03/17 07/04/17 06:59 06:59 06:59 Intake Total 1650 1203 Output Total 515 1125 Balance 1135 78 Weight 159.2 kg 160 kg General appearance: PRESENT: obese Head exam: PRESENT: normocephalic Eye exam: PRESENT: PERRLA Ear exam: PRESENT: normal external ear exam Mouth exam: PRESENT: moist Neck exam: ABSENT: tracheal deviation Respiratory exam: PRESENT: symmetrical, unlabored. ABSENT: rhonchi Cardiovascular exam: PRESENT: RRR GI/Abdominal exam: PRESENT: normal bowel sounds, soft, tenderness Rectal exam: PRESENT: deferred Extremities exam: ABSENT: pedal edema Musculoskeletal exam: PRESENT: normal inspection Neurological exam: PRESENT: alert, awake, oriented to person, oriented to place , oriented to time, oriented to situation Psychiatric exam: PRESENT: appropriate affect Skin exam: ABSENT: rash Results Laboratory Results: 07/03/17 04:16 07/03/17 04:16 07/03/17 07/03/17 04:16 04:16 WBC 5.0 RBC 3.60 L Hgb 11.3 L Hct 33.0 L MCV 92 MCH 31.4 MCHC 34.2 RDW 14.8 H Plt Count 150 Seg Neutrophils % 65.2 Lymphocytes % 12.3 L Monocytes % 18.0 H Eosinophils % 3.8 Basophils % 0.7 Absolute Neutrophils 3.2 Absolute Lymphocytes 0.6 Absolute Monocytes 0.9 Absolute Eosinophils 0.2 Absolute Basophils 0.0 Sodium 145.8 H Potassium 4.5 Chloride 111 H Carbon Dioxide 22 Anion Gap 13 BUN 38 H Creatinine 1.39 H Est GFR ( Amer) > 60 Est GFR (Non-Af Amer) 51 L Glucose 165 H Calcium 8.5 07/02/17 08:33 NT-Pro-B Natriuret Pep 1080 H Impressions: Chest X-Ray 07/02/17 00:00 IMPRESSION: Chronic left basilar scarring and pleural thickening. Borderline cardiomegaly. Assessment & Plan - Diagnosis (1) Hernia, incisional, with obstruction Is this a current diagnosis for this admission?: Yes Plan: S/p surgery. Management per Surgical service (2) Hypertension Qualifiers: Hypertension type: essential hypertension Qualified Code(s): I10 - Essential (primary) hypertension Is this a current diagnosis for this admission?: Yes Plan: Monitor and start outpatient meds if needed. BP running low normal now. (3) CAD (coronary artery disease) Qualifiers: Coronary Disease-Associated Artery/Lesion type: unspecified vessel or lesion type [place] vs. transplanted heart: [place] heart Associated angina: angina presence unspecified Qualified Code(s): I25.10 - Atherosclerotic heart disease of [place] coronary artery without angina pectoris Is this a current diagnosis for this admission?: Yes Plan: Restart outpatient medications once able to take p.o. (4) Diabetes 1.5, managed as type 2 Is this a current diagnosis for this admission?: Yes Plan: Insulin sliding scale for now. He continues to be n.p.o. (5) Osteoarthritis Is this a current diagnosis for this admission?: Yes Plan: Analgesics as needed (6) BPH (benign prostatic hyperplasia) Is this a current diagnosis for this admission?: Yes Plan: Continue outpatient medications once able to take p.o. - Time Time Spent with patient: 25-34 minutes
--- NOTE | 2017-07-03 14:20 | PDOC PROGRESS REPORT ---
Subjective Reason For Visit: IRREDUCIBLE HERNIA OF ANTERIOR ABDOMINAL WALL Physical Exam Vital Signs: Temp Pulse Resp BP Pulse Ox 98.1 F 62 20 130/45 H 96 07/03/17 12:00 07/03/17 12:00 07/03/17 12:00 07/03/17 12:00 07/03/17 12:00 Pulse Oximeter Continuous Start: 07/02/17 04: 25 Freq: Status: Complete Document 07/02/17 04:25 EST (Rec: 07/02/17 04:26 EST [email or web address]) Pulse Oximetry Assessment Oxygen Saturation (92-100) 97 Oxygen Delivery Method Room Air Fraction of Inspired Oxygen (FIO2) 21 Equipment Usage Initial Set Up Continuous Pulse Oximeter 24 Hour Charge Charge Now Continuous SpO2 Machine # 8 Pulse Oximeter Continuous Start: 07/02/17 01: 50 Freq: RTQ4 Status: Active Document 07/03/17 12:00 [facility] (Rec: 07/03/17 13:05 [facility] [email or web address]) Pulse Oximetry Assessment Oxygen Saturation (92-100) 96 Oxygen Delivery Method Room Air Fraction of Inspired Oxygen (FIO2) 21 Equipment Usage Equipment in Use Continuous SpO2 Machine # 8 Intake & Output 07/02/17 07/03/17 07/04/17 06:59 06:59 06:59 Intake Total 1650 1203 Output Total 515 1125 Balance 1135 78 Weight 159.2 kg 160 kg Results Laboratory Results: 07/03/17 04:16 07/03/17 04:16 07/03/17 07/03/17 04:16 04:16 WBC 5.0 RBC 3.60 L Hgb 11.3 L Hct 33.0 L MCV 92 MCH 31.4 MCHC 34.2 RDW 14.8 H Plt Count 150 Seg Neutrophils % 65.2 Lymphocytes % 12.3 L Monocytes % 18.0 H Eosinophils % 3.8 Basophils % 0.7 Absolute Neutrophils 3.2 Absolute Lymphocytes 0.6 Absolute Monocytes 0.9 Absolute Eosinophils 0.2 Absolute Basophils 0.0 Sodium 145.8 H Potassium 4.5 Chloride 111 H Carbon Dioxide 22 Anion Gap 13 BUN 38 H Creatinine 1.39 H Est GFR ( Amer) > 60 Est GFR (Non-Af Amer) 51 L Glucose 165 H Calcium 8.5 07/02/17 08:33 NT-Pro-B Natriuret Pep 1080 H Impressions: Chest X-Ray 07/02/17 00:00 IMPRESSION: Chronic left basilar scarring and pleural thickening. Borderline cardiomegaly. Assessment & Plan - Diagnosis (1) Hernia, incisional, with obstruction Is this a current diagnosis for this admission?: Yes - Plan Summary Plan Summary: 66-year-old male status post reduction of an incarcerated ventral hernia with lysis of adhesions for obstruction. Patient is doing well. His pain is controlled. His dressing is clean, dry, and intact. The hospitalist is following for medical management. The patient reports that he is passing flatus today, and feeling better. I will advance patient to full liquid diet. Have encouraged him to ambulate in the hallways and use his incentive spirometer. Maintain the patient's Martinez, secondary to a history of bladder dysfunction (chronic catheterization).
[2017-07-03] MEDS ORDERED: ATORVASTATIN CALCIUM 10 MG TABLET PO SCH (22:00)
[2017-07-03] MEDS: SERTRALINE HCL 50 MG TABLET PO SCH (22:51)
[2017-07-03] MEDS: TAMSULOSIN HCL 0.4 MG CAP.SR.24H PO SCH (22:51)
[2017-07-03] MEDS: METOPROLOL TARTRATE 25 MG TABLET PO SCH (22:51)
[2017-07-04] MEDS: NORMAL SALINE 1000 ML 1,000 ML IV PRN (07:17)
[2017-07-04 07:20] LABS: ABSOLUTE EOSINOPHILS # (AUTO) 0.3 10^3/uL (0.0-0.6); ABSOLUTE LYMPHOCYTES (AUTO) 0.8 10^3/uL (0.5-4.7); ABSOLUTE MONOCYTES (AUTO) 0.7 10^3/uL (0.1-1.4); ABSOLUTE NEUT (AUTO) 3.9 10^3/uL (1.7-8.2); BASOPHILS % (AUTO) 0.6 % (0-2); EOSINOPHILS % (AUTO) 5.9 % (0-6); HEMATOCRIT 29.3 % (37.9-51.0); HEMOGLOBIN 9.8 g/dL (13.5-17.0); LYMPHOCYTES % (AUTO) 14.1 % (13-45); MEAN CORPUSCULAR HEMOGLOBIN 31.3 pg (27.0-33.4); MEAN CORPUSCULAR HGB CONC 33.5 g/dL (32.0-36.0); MEAN CORPUSCULAR VOLUME 93 fl (80-97); MONOCYTES % (AUTO) 12.1 % (3-13); PLATELET COUNT 116 10^3/uL (150-450); RED BLOOD COUNT 3.14 10^6/uL (4.35-5.55); RED CELL DISTRIBUTION WIDTH 14.7 % (11.5-14.0); SEGMENTED NEUTROPHILS % (AUTO) 67.3 % (42-78); TOTAL CELLS COUNTED % (AUTO) 100 %; WHITE BLOOD COUNT 5.8 10^3/uL (4.0-10.5)
[2017-07-04 07:35] LABS: ANION GAP 12 (5-19); BLOOD UREA NITROGEN 33 mg/dL (7-20); CALCIUM 8.3 mg/dL (8.4-10.2); CARBON DIOXIDE 20 mmol/L (22-30); CHLORIDE 112 mmol/L (98-107); GLUCOSE 146 mg/dL (75-110); POTASSIUM 4.1 mmol/L (3.6-5.0); SODIUM 144.1 mmol/L (137-145)
[2017-07-04] MEDS: INSULIN LISPRO 100 UNIT/ML 3 ML VIAL SUBCUT PRN ×4 (08:26→22:12)
--- NOTE | 2017-07-04 08:35 | EKG REPORT ---
SEVERITY:- ABNORMAL ECG - SINUS RHYTHM VENTRICULAR PREMATURE COMPLEX INCOMPLETE RIGHT BUNDLE BRANCH BLOCK INFERIOR INFARCT, AGE INDETERMINATE CONSIDER ANTERIOR INFARCT : Confirmed by: Gabriel Chatman 04-Jul-2017 08:35:17
[2017-07-04] MEDS ORDERED: DEXTROSE 50%-WATER 25 GM/50 ML DISP.SYRIN IV PRN ×2 (09:08)
[2017-07-04] MEDS ORDERED: DEXTROSE 40% GEL 15 GM TUBE PO PRN ×2 (09:08)
[2017-07-04] MEDS ORDERED: GLUCAGON,HUMAN RECOMB 1 MG INJ IM PRN (09:08)
[2017-07-04] MEDS ORDERED: KETOROLAC TROMETHAMINE INJ/PF 30 MG/1 ML SDV IV PRN (09:27)
--- NOTE | 2017-07-04 09:27 | PDOC PROGRESS REPORT ---
Subjective Progress Note for:: 07/04/17 Subjective:: Patient has adequate pain control; cannot get out of bed due to acute postoperative state, and chronic, musculoskeletal problems. Reason For Visit: IRREDUCIBLE HERNIA OF ANTERIOR ABDOMINAL WALL Physical Exam Vital Signs: Temp Pulse Resp BP Pulse Ox 99.3 F 68 20 113/50 L 95 07/04/17 07:58 07/04/17 07:58 07/04/17 07:58 07/04/17 07:58 07/04/17 08:00 Pulse Oximeter Continuous Start: 07/02/17 04: 25 Freq: Status: Complete Document 07/02/17 04:25 EST (Rec: 07/02/17 04:26 EST [email or web address]) Pulse Oximetry Assessment Oxygen Saturation (92-100) 97 Oxygen Delivery Method Room Air Fraction of Inspired Oxygen (FIO2) 21 Equipment Usage Initial Set Up Continuous Pulse Oximeter 24 Hour Charge Charge Now Continuous SpO2 Machine # 8 Pulse Oximeter Continuous Start: 07/02/17 01: 50 Freq: RTQ4 Status: Active Document 07/04/17 08:00 [facility] (Rec: 07/04/17 08:00 [facility] [email or web address]) Pulse Oximetry Assessment Oxygen Saturation (92-100) 95 Oxygen Delivery Method Room Air Equipment Usage Equipment in Use Continuous SpO2 Machine # 8 Intake & Output 07/03/17 07/04/17 07/05/17 06:59 06:59 06:59 Intake Total 1203 2795 Output Total 1125 1350 Balance 78 1445 Weight 160 kg 157.4 kg General appearance: PRESENT: no acute distress GI/Abdominal exam: PRESENT: other - Morbidly obese; midline dressing; dressing changed. No evidence of infection. Results Laboratory Results: 07/04/17 05:30 07/04/17 05:30 07/04/17 07/04/17 05:30 05:30 WBC 5.8 RBC 3.14 L Hgb 9.8 L Hct 29.3 L MCV 93 MCH 31.3 MCHC 33.5 RDW 14.7 H Plt Count 116 L Seg Neutrophils % 67.3 Lymphocytes % 14.1 Monocytes % 12.1 Eosinophils % 5.9 Basophils % 0.6 Absolute Neutrophils 3.9 Absolute Lymphocytes 0.8 Absolute Monocytes 0.7 Absolute Eosinophils 0.3 Absolute Basophils 0.0 Sodium 144.1 Potassium 4.1 Chloride 112 H Carbon Dioxide 20 L Anion Gap 12 BUN 33 H Creatinine 1.23 Est GFR ( Amer) > 60 Est GFR (Non-Af Amer) 59 L Glucose 146 H Calcium 8.3 L 07/02/17 08:33 NT-Pro-B Natriuret Pep 1080 H Impressions: Chest X-Ray 07/02/17 00:00 IMPRESSION: Chronic left basilar scarring and pleural thickening. Borderline cardiomegaly. Assessment & Plan - Diagnosis (1) Hernia, incisional, with obstruction Is this a current diagnosis for this admission?: Yes Plan: Patient is postoperative day 2 status post open ventral wall hernia repair with mesh, no drains, tolerating full liquids, indwelling Martinez catheter for chronic bladder dysfunction overall doing well Recommendations: 1. We will add Toradol for pain management 2. Consult physical therapy, get patient appropriate walker. Her graft 3. Continue abdominal binder, full liquids.
[2017-07-04] MEDS ORDERED: ONDANSETRON HCL INJ/PF 4 MG/2 ML SDV IV PRN (09:30)
[2017-07-04] MEDS: TRAMADOL HCL 50 MG TABLET PO SCH ×3 (11:43→22:11)
[2017-07-04] MEDS: METOPROLOL TARTRATE 25 MG TABLET PO SCH ×2 (11:43→22:11)
[2017-07-04] MEDS: FINASTERIDE 5 MG TABLET PO SCH (11:43)
[2017-07-04] MEDS: CEPHALEXIN 500 MG CAPSULE PO SCH ×2 (11:44→22:11)
[2017-07-04] MEDS: ENOXAPARIN SODIUM INJ 40 MG/0.4 ML DISP.SYRIN SUBCUT SCH (11:45)
[2017-07-04] MEDS: ASPIRIN 81 MG TABLET, ENT COATED PO SCH (11:49)
--- NOTE | 2017-07-04 11:53 | PDOC PROGRESS REPORT ---
Subjective Progress Note for:: 07/04/17 Subjective:: 66-year-old gentleman with a long-standing periumbilical incisional hernia presented to the hospital on July 01 with sudden onset abdominal pain. On the afternoon of admission his hernia protruded and became reducible. He also reported persistent nausea and vomiting. Past medical history: Coronary artery disease Hypertension Hyperlipidemia Past surgical history: CABG Colon resection He was evaluated by the surgical service, and despite aggressive manipulation the hernia could not be reduced at bedside. He underwent surgical exploration to relieve the obstruction and avoid strangulation. The medical service was consulted for management of his coronary artery disease hypertension and diabetes. No complaints at present. Reason For Visit: IRREDUCIBLE HERNIA OF ANTERIOR ABDOMINAL WALL Physical Exam Vital Signs: Temp Pulse Resp BP Pulse Ox 99.3 F 68 20 113/50 L 95 07/04/17 07:58 07/04/17 07:58 07/04/17 07:58 07/04/17 07:58 07/04/17 08:00 Pulse Oximeter Continuous Start: 07/02/17 04: 25 Freq: Status: Complete Document 07/02/17 04:25 EST (Rec: 07/02/17 04:26 EST [email or web address]) Pulse Oximetry Assessment Oxygen Saturation (92-100) 97 Oxygen Delivery Method Room Air Fraction of Inspired Oxygen (FIO2) 21 Equipment Usage Initial Set Up Continuous Pulse Oximeter 24 Hour Charge Charge Now Continuous SpO2 Machine # 8 Pulse Oximeter Continuous Start: 07/02/17 01: 50 Freq: RTQ4 Status: Active Document 07/04/17 08:00 [facility] (Rec: 07/04/17 08:00 [facility] [email or web address]) Pulse Oximetry Assessment Oxygen Saturation (92-100) 95 Oxygen Delivery Method Room Air Equipment Usage Equipment in Use Continuous SpO2 Machine # 8 Intake & Output 07/03/17 07/04/17 07/05/17 06:59 06:59 06:59 Intake Total 1203 2795 Output Total 1125 1350 Balance 78 1445 Weight 160 kg 157.4 kg General appearance: PRESENT: no acute distress, obese Head exam: PRESENT: normocephalic Eye exam: ABSENT: scleral icterus Mouth exam: PRESENT: moist Respiratory exam: PRESENT: symmetrical, unlabored. ABSENT: crackles Cardiovascular exam: PRESENT: RRR GI/Abdominal exam: PRESENT: normal bowel sounds, soft Rectal exam: PRESENT: deferred Extremities exam: ABSENT: pedal edema Neurological exam: PRESENT: alert, awake, oriented to person Psychiatric exam: PRESENT: appropriate affect Results Laboratory Results: 07/04/17 05:30 07/04/17 05:30 07/04/17 07/04/17 05:30 05:30 WBC 5.8 RBC 3.14 L Hgb 9.8 L Hct 29.3 L MCV 93 MCH 31.3 MCHC 33.5 RDW 14.7 H Plt Count 116 L Seg Neutrophils % 67.3 Lymphocytes % 14.1 Monocytes % 12.1 Eosinophils % 5.9 Basophils % 0.6 Absolute Neutrophils 3.9 Absolute Lymphocytes 0.8 Absolute Monocytes 0.7 Absolute Eosinophils 0.3 Absolute Basophils 0.0 Sodium 144.1 Potassium 4.1 Chloride 112 H Carbon Dioxide 20 L Anion Gap 12 BUN 33 H Creatinine 1.23 Est GFR ( Amer) > 60 Est GFR (Non-Af Amer) 59 L Glucose 146 H Calcium 8.3 L 07/02/17 08:33 NT-Pro-B Natriuret Pep 1080 H Impressions: Chest X-Ray 07/02/17 00:00 IMPRESSION: Chronic left basilar scarring and pleural thickening. Borderline cardiomegaly. Assessment & Plan - Diagnosis (1) Hernia, incisional, with obstruction Is this a current diagnosis for this admission?: Yes Plan: S/p surgery. Management per Surgical service (2) Hypertension Qualifiers: Hypertension type: essential hypertension Qualified Code(s): I10 - Essential (primary) hypertension Is this a current diagnosis for this admission?: Yes Plan: Monitor and start outpatient meds if needed. BP running low normal now. (3) CAD (coronary artery disease) Qualifiers: Coronary Disease-Associated Artery/Lesion type: unspecified vessel or lesion type [place] vs. transplanted heart: [place] heart Associated angina: angina presence unspecified Qualified Code(s): I25.10 - Atherosclerotic heart disease of [place] coronary artery without angina pectoris Is this a current diagnosis for this admission?: Yes Plan: Continue outpatient medications. (4) Diabetes 1.5, managed as type 2 Is this a current diagnosis for this admission?: Yes Plan: Insulin sliding scale and Lantus. Monitor glucose (5) Osteoarthritis Is this a current diagnosis for this admission?: Yes Plan: Analgesics as needed (6) BPH (benign prostatic hyperplasia) Is this a current diagnosis for this admission?: Yes Plan: Continue outpatient medications. - Time Time Spent with patient: 25-34 minutes
--- NOTE | 2017-07-04 17:33 | XCELERA REPORT ---
[address] [address] Transthoracic Echocardiogram Report Name: JUDY SANTANA Age: 66 yrs Gender: Male : 1950 Patient Status: Inpatient Patient Location: [address] [place] [address] Study Date: 07/04/2017 03:24 PM Weight: 352 lb Procedure: A two-dimensional transthoracic echocardiogram with color flow and Doppler was performed. Study Quality: Technically suboptimal. Poor visualisation of endocardium. Reason For Study: Cardiomegaly, CAD History: Cardiomegaly, CAD. Ordering Physician: Tammi Pritchard Performed By: Ginny Ngo Interpretation Summary Poor visualisation of endocardium. Probably mild LVH.Cannot assess Wall motion abnormality.Probably normal LVEF , but cannot be sure.Recommend first pass MUGA for RVEF and LVEF.No defenite valvular stenotic disease.But cannot comment on any regurgitant lesions of the valve, and cannot assess RVSP/Pulmonary Hypertension. MMode/2D Measurements & Calculations IVSd: 1.2 cm LVIDd: 5.8 cm FS: 39.4 % LA dimension: 4.3 cm LVIDs: 3.5 cm EDV(Teich): 166.1 ml LVPWd: 1.5 cm ESV(Teich): 51.3 ml EF(Teich): 69.1 % Doppler Measurements & Calculations MV E max carmelo: MV P1/2t max carmelo: PA V2 max: TR max carmelo: 97.5 cm/sec 126.4 cm/sec 83.4 cm/sec 222.6 cm/sec MV A max carmelo: MV P1/2t: 66.2 msec PA max PG: TR max P.1 cm/sec MVA(P1/2t): 3.3 cm2 3.0 mmHg 19.8 mmHg MV E/A: 1.4 MV dec slope: 559.8 cm/sec2 MV dec time: 0.19 sec Left Ventricle Probably mild LVH.Cannot assess Wall motion abnormality.Probably normal LVEF , but cannot be sure.Recommend first pass MUGA for RVEF and LVEF.No defenite valvular stenotic disease.But cannot comment on any regurgitant lesions of the valve, and cannot assess RVSP/Pulmonary Hypertension. : Tammi Pritchard > Tammi Pritchard
--- NOTE | 2017-07-04 17:49 | PROGRESS NOTE E ---
Progress Note NAME: JUDY SANTANA : 1950 AGE: 66Y DATE: 07/04/2017 ROOM: 405 SUBJECTIVE: The patient is postop day 2 for inguinal hernia surgery. The patient states that his hernial site surgical pain is well controlled with current medications. Nursing has noted that the patient's heart rate sometimes goes into the 50s but the patient is asymptomatic. This is mostly when the patient is sleeping. When awakened, his heart rate comes up. The patient states that he is tolerating diet and has no nausea or vomiting and states he is passing flatus. He denies any chest pain or discomfort. There is no shortness of breath. There is no wheezing. There is no PND, orthopnea, leg edema. He denies any symptoms suggestive of TIA or CVA. There are no palpitations or arrhythmias and no arrhythmia seen on the monitor. There are no symptoms of dizziness, near syncope or syncope. OBJECTIVE: GENERAL: On examination, the patient is morbidly obese, in no acute distress. He is well groomed. VITAL SIGNS: He is afebrile with a temperature of 98.9 degrees Fahrenheit, his pulse is 61 beats per minute, blood pressure is 124/44, respirations are 20 per minute, O2 saturations are 95% on room air. HEENT: Head is atraumatic, normocephalic. Eyes: Pupils are equal, round, regular, reactive to light and accommodation. Extraocular movements are normal. There is no conjunctival pallor. There is no scleral icterus. ENT is negative. NECK: Supple. There is no JVD. Carotids are equal. There is no bruit. There is no lymphadenopathy. There is no goiter. Trachea is central. LUNGS: Clear to auscultation and percussion. There is no chest wall tenderness. HEART: S1 and S2 are heard. There is no S3 gallop. There is no S4 gallop. There is a systolic murmur in the left sternal border on the apex. There is no rub. ABDOMEN: Soft, obese, nontender. The surgical dressing is dry. Bowel sounds are well heard. There is no hepatosplenomegaly. EXTREMITIES: Femorals are deep. Femorals are diminished. There are no femoral bruits. Leg pulses are diminished. There is no pedal edema. There is no DVT or cellulitis. There is no calf tenderness. CENTRAL NERVOUS SYSTEM: The patient is conscious, awake, alert, oriented x3 with no focal deficit. PSYCHIATRIC: The patient's judgment and insight are intact. His affect is normal. CODE STATUS: The patient is FULL CODE. His , Mary, is the surrogate healthcare decision maker. DIAGNOSTIC STUDIES: His echo has been done. We will read and discuss with the patient when available. LABORATORY DATA: The patient's sodium is 144.1, potassium 4.1, chloride is 112, CO2 is 20. The patient's BUN is 33, creatinine is 1.23, GFR has come up to 59 mL/min which is improved. Most likely, the patient's dehydration has been corrected. His blood sugar is 146. The patient's white count is 5800; his hemoglobin is 9.8; hematocrit is 29.3; and his platelet count is 116,000. INTAKE AND OUTPUT: The patient's 24 hour intake is 2795 mL. Output is 1350 mL. IMPRESSION: 1. STATUS POST SURGERY FOR INCARCERATED HERNIA, POSTOPERATIVE DAY 2, STABLE. 2. CORONARY ARTERY DISEASE OF [place] CORONARY ARTERY WITHOUT ANGINA PECTUS, THAT IS I25.10. 3. DIABETES MELLITUS WITH UNSPECIFIED COMPLICATIONS. 4. MORBID OBESITY. 5. HYPERTENSION. BLOOD PRESSURE IS WELL CONTROLLED. 6. HYPERLIPIDEMIA. THE PATIENT IS TOLERATING LIPITOR WITHOUT ANY PROBLEMS. RECOMMENDATIONS: 1. Continue the patient on current therapy including beta freddy that is metoprolol. 2. Continue insulin. 3. Continue Lovenox at DVT prophylaxis doses. 4. The patient is on hypoglycemic precautions. 5. Continue atorvastatin and aspirin. 6. Continue Proscar. 7. We will check the patient's echocardiogram later today and discuss with the patient. 8. Also, we will check the patient's liver function tests, as the patient is on statin therapy. We will do that in a week or so. The patient's echo is very suboptimal and no meaning ful interpretation can be made.Discussed this with patient.Will sign off.Patient wants to follow up with me.My cell # given. All of the above discussed with the patient. Medical decision making is of moderate complexity. The patient's medications have been reviewed. TIME SPENT: Thirty minutes spent with the patient with more than 50% of the time spent on direct patient care. The patient does have symptoms suggestive of obstructive sleep apnea. This can be worked up as an outpatient. DICTATING PHYSICIAN: NE TURNER M.D. [id number] [facility]#: [id number] ID: [id number] JOB#: [id number] ACCT: [id number] cc: > [facility]
[2017-07-04] MEDS ORDERED: INSULIN GLARGINE,HUM.REC.ANLOG 1,000 UNIT/10 ML UNIT SUBCUT SCH ×2 (18:00)
[2017-07-04] MEDS ORDERED: ATORVASTATIN CALCIUM 40 MG TABLET PO SCH (22:00)
[2017-07-04] MEDS: TAMSULOSIN HCL 0.4 MG CAP.SR.24H PO SCH (22:11)
[2017-07-04] MEDS: SERTRALINE HCL 50 MG TABLET PO SCH (22:11)
--- NOTE | 2017-07-04 23:36 | RADIOLOGY REPORT (SQ) ---
EXAM DESCRIPTION: U/S SCROTUM W/DOPPLER COMPLETED DATE/TIME: 07/04/2017 10:58 pm REASON FOR STUDY: scrotal edema COMPARISON: Scrotal ultrasound 12/27/2016. TECHNIQUE: Static and realtime song scale imaging of the scrotum and testes. Selected color Doppler and spectral images recorded to document blood flow. LIMITATIONS: None. FINDINGS: RIGHT: TESTICLE: Measures 4.5 x 2.4 x 2.8 cm. Normal echotexture. Normal blood flow. No mass. EPIDIDYMIS: Measures 1.7 x 1.9 x 1.1 cm. Appears heterogeneous and edematous. No increased vascular flow is noted on Doppler images. HYDROCELE OR VARICOCELE: There is small hydrocele with mobile debris. No varicocele. HERNIA OR EXTRA-TESTICULAR MASS: No. LEFT: TESTICLE: Measures 3.7 x 2.3 x 2.1 cm. Normal echotexture. Normal blood flow. No mass. EPIDIDYMIS: Measures 1.2 x 0.8 x 0.7 cm. Appears heterogeneous and edematous. No increased vascular flow is noted on Doppler images. HYDROCELE OR VARICOCELE: Septated small hydrocele with mobile debris. No varicocele. HERNIA OR EXTRA-TESTICULAR MASS: No. IMPRESSION: 1. No sonographic evidence for testicular torsion. 2. Heterogeneous, edematous bilateral epididymides with no increased vascular flow on Doppler images, developing acute epididymitis cannot be excluded. 3. Bilateral small hydroceles with mobile debris, septated hydrocele on the left, suggestive of chron icity. TECHNICAL DOCUMENTATION: JOB ID: [id number] 2010 [employer]- All Rights Reserved Reading location - IP/workstation name: [email or web address]
--- NOTE | 2017-07-05 09:41 | PDOC PROGRESS REPORT ---
Subjective Progress Note for:: 07/05/17 Subjective:: flatus, comfortable, diet tolerated Reason For Visit: IRREDUCIBLE HERNIA OF ANTERIOR ABDOMINAL WALL Physical Exam Vital Signs: Temp Pulse Resp BP Pulse Ox 98.4 F 62 18 143/45 H 97 07/05/17 07:00 07/05/17 07:00 07/05/17 07:00 07/05/17 07:00 07/05/17 08:10 Pulse Oximeter Continuous Start: 07/02/17 04: 25 Freq: Status: Complete Document 07/02/17 04:25 EST (Rec: 07/02/17 04:26 EST [email or web address]) Pulse Oximetry Assessment Oxygen Saturation (92-100) 97 Oxygen Delivery Method Room Air Fraction of Inspired Oxygen (FIO2) 21 Equipment Usage Initial Set Up Continuous Pulse Oximeter 24 Hour Charge Charge Now Continuous SpO2 Machine # 8 Pulse Oximeter Continuous Start: 07/02/17 01: 50 Freq: RTQ4 Status: Active Document 07/05/17 08:10 TPO (Rec: 07/05/17 08:13 TPO [email or web address]) Pulse Oximetry Assessment Oxygen Saturation (92-100) 97 Oxygen Delivery Method Room Air Fraction of Inspired Oxygen (FIO2) 21 Equipment Usage Equipment in Use Continuous SpO2 Machine # 8 Intake & Output 07/04/17 07/05/17 07/06/17 06:59 06:59 06:59 Intake Total 2795 2277 Output Total 1350 1225 Balance 1445 1052 Weight 157.4 kg 157.9 kg General appearance: PRESENT: no acute distress, cooperative Respiratory exam: PRESENT: clear to auscultation mariam Cardiovascular exam: PRESENT: RRR GI/Abdominal exam: PRESENT: hyperactive bowel sounds, normal bowel sounds, soft , other - incision C/D/i Results Laboratory Results: 07/04/17 05:30 07/04/17 05:30 07/02/17 08:33 NT-Pro-B Natriuret Pep 1080 H Impressions: Chest X-Ray 07/02/17 00:00 IMPRESSION: Chronic left basilar scarring and pleural thickening. Borderline cardiomegaly. Scrotum Ultrasound 07/04/17 00:00 IMPRESSION: 1. No sonographic evidence for testicular torsion. 2. Heterogeneous, edematous bilateral epididymides with no increased vascular flow on Doppler images, developing acute epididymitis cannot be excluded. 3. Bilateral small hydroceles with mobile debris, septated hydrocele on the left , suggestive of chronicity. Assessment & Plan - Diagnosis (1) Hernia, incisional, with obstruction Is this a current diagnosis for this admission?: Yes - Plan Summary Plan Summary: A/ POD #3a after ventrla herniorraphy with mesh VSS, AF PO tolerated Patient ambulated with PT yesterday Blood work WNL PE unremarkable P/ Home today F/U Dr. Fish next week resume meds, diet remain active Shower only x 2 weeks, can bathe after jasen are out No wound care needed, keep dressing C/D/i
[2017-07-05] MEDS: TRAMADOL HCL 50 MG TABLET PO SCH (10:26)
[2017-07-05] MEDS: FINASTERIDE 5 MG TABLET PO SCH (10:26)
[2017-07-05] MEDS: ASPIRIN 81 MG TABLET, ENT COATED PO SCH (10:26)
[2017-07-05] MEDS: CEPHALEXIN 500 MG CAPSULE PO SCH (10:26)
[2017-07-05] MEDS: METOPROLOL TARTRATE 25 MG TABLET PO SCH (10:27)
[2017-07-05] MEDS: ENOXAPARIN SODIUM INJ 40 MG/0.4 ML DISP.SYRIN SUBCUT SCH (10:27)
[2017-07-05 13:03] VITALS: BP 153/53
--- NOTE | 2017-07-05 14:55 | DISCHARGE SUMMARY E ---
Discharge Summary NAME: JUDY SANTANA : 1950 AGE: 66Y ADMITTED: 07/01/2017 DISCHARGED: 07/05/2017 FINAL DIAGNOSES: 1. Morbid obesity. 2. Incarcerated ventral hernia. PROCEDURE: Open ventral hernia repair with absorbable mesh. COMPLICATIONS: None. HOSPITAL COURSE: This is a morbidly obese 66-year-old male admitted for an incarcerated midline ventral hernia. This was operated with an open technique on July 01. His postoperative course was unremarkable. Diet was advanced. This was tolerated. The patient remained afebrile. On physical exam, the abdomen remained soft with the incision clean, dry and intact. On the day of discharge, the patient had stable vital signs. He was tolerating p.o.. Physical exam unremarkable. DISCHARGE INSTRUCTIONS: The patient was discharged on July 05. He has a followup appointment with Dr. Fish in a week after discharge. He was instructed to shower only. No wound care needed. He was instructed to keep the dressing clean, dry and intact. Resujme medications and diet. He was given Toradol 10 mg p.o. q.8 hours p.r.n. for pain without refills. The patient was instructed to remain active. DICTATING PHYSICIAN: DARYL BATES M.D. [id number] PHY#: [id number] ID: [id number] JOB#: [id number] ACCT: [id number] cc:DARYL BATES M.D., E. RGael > [facility]
== END 2017-07-05 13:38 | disposition home or self-care (01) | DRG 336 ==
LOC: ER 22:13 → EH 23:29 → 4N 07-02 02:40
PROVIDERS: ADMIT Surgery; ATTEND Surgery
PROC: 0WUF0JZ Supplement Abdominal Wall with Synthetic Substitute, Open Approach (ICD-10-PCS; 2017-07-02)
PROC: 0DN80ZZ Release Small Intestine, Open Approach (ICD-10-PCS; principal; 2017-07-02 00:10)
DX: K43.0 Incisional hernia with obstruction, without gangrene (principal); Z68.42 Body mass index [BMI] 45.0-49.9, adult; K66.0 Peritoneal adhesions (postprocedural) (postinfection); I10 Essential (primary) hypertension; E78.5 Hyperlipidemia, unspecified; E11.9 Type 2 diabetes mellitus without complications; I25.10 Atherosclerotic heart disease of native coronary artery without angina pectoris; N40.0 Benign prostatic hyperplasia without lower urinary tract symptoms; E66.01 Morbid (severe) obesity due to excess calories; Z79.4 Long term (current) use of insulin; Z79.899 Other long term (current) drug therapy
CPT/HCPCS: 00790; 36415; 71045; 76870; 80048; 80053; 82962; 83735; 83880; 84100; 85025; 93005; 93010; 93306; 93976; 94762; 94799; 96374; 96375; 99285; C1781; J0131; J0330; J0690; J1650; J1815; J2250; J2270; J2370; J2405; J2704; J3010; J3480; J3490; J7030

== ENCOUNTER 2018-11-27 08:36 | Day surgery (SDC) | payer OTHER, MEDICARE ==
[~2018-11-27 08:36] MED LIST changes: -GLYCOPYRROLATE INJ 0.4 MG/2 ML VIAL ONE; -NEOSTIGMINE METHYLSULFATE 10 MG/10 ML VIAL ONE; -ONDANSETRON HCL INJ/PF 4 MG/2 ML SDV ONE; -PHENYLEPHRINE HCL INJ/PF 10 MG/1 ML SDV ONE; +PROPOFOL INJ 200 MG/20 ML VIAL IV ONE; -ROCURONIUM BROMIDE INJ 50 MG/5 ML VIAL IV ONE; -SUCCINYLCHOLINE CHLORIDE INJ 200 MG/10 ML VIAL ONE
[2018-11-27 11:18] VITALS: BP 123/54
--- NOTE | 2018-11-27 13:20 | Operative Report ---
Operative Report DATE OF SURGERY: 11/27/18 Operative Report: The risks, benefits and alternatives of the procedure including the risk of bleeding, perforation requiring surgery have been explained to the patient in detail and informed consent has been obtained. The patient is placed in a left, lateral decubital position. Timeout was called. Propofol medication is administered. Rectal examination is done which did not reveal any masses, tears or fissures. An Olympus videoscope was introduced into the patient's rectum. Scope was then carefully advanced all the way to the cecum. Cecum was identified by the usual anatomical landmarks of the ileocecal valve as well as the appendiceal office. Photodocumentation is obtained. Scope was then sequentially pulled back via the various segments of the colon including the ascending colon, hepatic flexure, transverse colon, splenic flexure, descending colon finding to the rectosigmoid portions of the colon. Retroflexion maneuvers performed. PREOPERATIVE DIAGNOSIS: Personal history of polyp POSTOPERATIVE DIAGNOSIS: Patient noted to the previous colonic surgical resection there is some inflammation at the anastomotic site and biopsies obtained OPERATION: Colonoscopy with biopsy SURGEON: TRANG BROTHERS ANESTHESIA: LMAC TISSUE REMOVED OR ALTERED: As noted above. COMPLICATIONS: None. ESTIMATED BLOOD LOSS: None. INTRAOPERATIVE FINDINGS: As noted above. PROCEDURE: Patient tolerated the procedure well. No immediate postprocedure complications are noted. Patient is discharged in good condition. Discharge date 11/27/2018. Discharge diet: Regular. Discharge activity: Regular. 2 to 3-week follow-up to discuss findings. Patient is instructed to call the office or proceed to the emergency room should there be any further problems or questions. 5-year surveillance colonoscopy.
== END 2018-11-27 11:24 | disposition home or self-care (01) ==
LOC: END 08:36
PROVIDERS: ATTEND Internal Medicine Gastroenterology
DX: Z12.11 Encounter for screening for malignant neoplasm of colon (principal); K52.9 Noninfective gastroenteritis and colitis, unspecified; Z86.010 Personal history of colon polyps; E11.9 Type 2 diabetes mellitus without complications; E07.9 Disorder of thyroid, unspecified; I25.2 Old myocardial infarction; Z87.891 Personal history of nicotine dependence; Z79.899 Other long term (current) drug therapy; Z79.4 Long term (current) use of insulin; Z79.82 Long term (current) use of aspirin
CPT/HCPCS: 45380; 82962; 88305 ×2; 00811; J2704; 811

== ENCOUNTER → 2019-02-09 | Outpatient (CLI) | payer OTHER ==
--- NOTE | 2019-02-09 18:11 | RADIOLOGY REPORT (SQ) ---
EXAM DESCRIPTION: U/S RETROPERITON (RENAL/AORTA) COMPLETED DATE/TIME: 02/09/2019 3:25 pm REASON FOR STUDY: CKD N18.9 CHRONIC KIDNEY DISEASE, UNSPECIFIED COMPARISON: None. TECHNIQUE: Dynamic and static grayscale images acquired of the kidneys and bladder and recorded on P ACS. Additional selected color Doppler and spectral images recorded. LIMITATIONS: Limited due to bowel gas and patient condition. FINDINGS: RIGHT KIDNEY: Normal size. Normal echogenicity. No solid or suspicious masses. No hydronep hrosis. No calcifications. LEFT KIDNEY: Normal size. Normal echogenicity. No solid or suspicious masses. No hydronephrosis. No calcifications. BLADDER: No masses. OTHER FINDINGS: No other significant finding. IMPRESSION: NORMAL RENAL AND BLADDER ULTRASOUND. TECHNICAL DOCUMENTATION: JOB ID: [id number] [employer]- All Rights Reserved Reading location - IP/workstation name: [email or web address]
== END ==
LOC: RAD 14:42
PROVIDERS: ATTEND Physician Assistant Medical
DX: N18.9 Chronic kidney disease, unspecified (principal)
CPT/HCPCS: 76770

== ENCOUNTER 2019-03-23 13:49 | Emergency (ER) | payer OTHER ==
--- NOTE | 2019-03-23 15:04 | ER Document Report ---
ED Medical Screen (RME) - General Chief Complaint: Abnormal Lab Results Stated Complaint: ABNORMAL LAB RESULTS Time Seen by Provider: 03/23/19 14:45 Primary Care Provider: JIMMIE RODRIGUEZ DO [Primary Care Provider] - Follow up as needed Notes: Patient is a 68-year-old male with a history of congestive heart failure, hypertension, diabetes who presents emergency department with a chief complaint of abnormal labs. Patient had a right hip revision due to an infection a few weeks ago at [facility]. Patient was sent home last week and placed on IV antibiotics via his PICC line. Patient reports he has had no issues and his last dose of Vanco was yesterday and is on oral Cipro. Patient reports that he had blood drawn by his home health nurse on Tuesday with a hemoglobin of 12. He reports they repeated the blood work yesterday and it had decreased to 9.5. Patient reports he is not having dark or bloody stools, signs of infection at his right hip incision, fever, chills or any signs of bleeding. Patient denies pain. TRAVEL OUTSIDE OF THE [place] IN LAST 30 DAYS: No - Related Data Allergies/Adverse Reactions: Gnzanbt-Uqt-Xnt Reductase Inhibitor Adverse Reaction (Unknown, Verified 03/23/19 14:43) Home Medications: cipro. vancomycin. amlodipine. gabapentin. linsinopril. metoprolol. atorvastatin. cholecalciferol. finasteride. furosemide. novolog. glargine. levothyroxine. lidocaine. sertraline. 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 Patient will need to be evaluated in a private room and to evaluate his right hip incision. Patient reports he is not having any pain or drainage from the site. Patient denies complaints such as dizziness, head ache, shortness of breath or chest pain. We will obtain basic labs to start. I have greeted and performed a rapid initial assessment of this patient. A comprehensive ED assessment and evaluation of the patient, analysis of test results and completion of the medical decision making process will be conducted by additional ED providers. - Vital Signs Vital signs: Temp Pulse Resp BP Pulse Ox 98.1 F 48 L 18 129/48 H 100 03/23/19 14:41 03/23/19 14:41 03/23/19 14:41 03/23/19 14:41 03/23/19 14:41 Doctor's Discharge - Discharge Referrals: JIMMIE RODRIGUEZ DO [Primary Care Provider] - Follow up as needed
[2019-03-23 15:57] LABS: ABSOLUTE BASOPHILS # (AUTO) 0.1 10^3/uL (0.0-0.2); ABSOLUTE EOSINOPHILS # (AUTO) 0.7 10^3/uL (0.0-0.6); ABSOLUTE LYMPHOCYTES (AUTO) 0.7 10^3/uL (0.5-4.7); ABSOLUTE MONOCYTES (AUTO) 0.5 10^3/uL (0.1-1.4); ABSOLUTE NEUT (AUTO) 4.8 10^3/uL (1.7-8.2); BASOPHILS % (AUTO) 0.8 % (0-2); EOSINOPHILS % (AUTO) 10.9 % (0-6); HEMOGLOBIN 10.4 g/dL (13.5-17.0); LYMPHOCYTES % (AUTO) 9.8 % (13-45); MEAN CORPUSCULAR HEMOGLOBIN 30.2 pg (27.0-33.4); MEAN CORPUSCULAR HGB CONC 33.6 g/dL (32.0-36.0); MEAN CORPUSCULAR VOLUME 90 fl (80-97); MONOCYTES % (AUTO) 6.9 % (3-13); PLATELET COUNT 201 10^3/uL (150-450); RED BLOOD COUNT 3.45 10^6/uL (4.35-5.55); RED CELL DISTRIBUTION WIDTH 19.9 % (11.5-14.0); SEGMENTED NEUTROPHILS % (AUTO) 71.6 % (42-78); TOTAL CELLS COUNTED % (AUTO) 100 %; WHITE BLOOD COUNT 6.7 10^3/uL (4.0-10.5)
[2019-03-23 16:02] LABS: INTERNATIONAL RATION (INR) 1.12; PROTHROMBIN TIME 14.4 SEC (11.4-15.4)
[2019-03-23 16:27] LABS: ALBUMIN 4.2 g/dL (3.5-5.0); ALKALINE PHOSPHATASE 86 U/L (38-126); ANION GAP 12 (5-19); ASPARTATE AMINO TRANSFERASE 27 U/L (17-59); BILIRUBIN,DIRECT 0.3 mg/dL (0.0-0.4); BILIRUBIN,TOTAL 0.5 mg/dL (0.2-1.3); BLOOD UREA NITROGEN 83 mg/dL (7-20); CALCIUM 9.5 mg/dL (8.4-10.2); CARBON DIOXIDE 20 mmol/L (22-30); CHLORIDE 110 mmol/L (98-107); GLUCOSE 98 mg/dL (75-110); POTASSIUM 4.7 mmol/L (3.6-5.0); TOTAL PROTEIN 7.5 g/dL (6.3-8.2)
--- NOTE | 2019-03-23 19:55 | ER Document Report ---
ED General - General Chief Complaint: Abnormal Lab Results Stated Complaint: ABNORMAL LAB RESULTS Time Seen by Provider: 03/23/19 14:45 Primary Care Provider: JIMMIE RODRIGUEZ DO [Primary Care Provider] - Follow up as needed TRAVEL OUTSIDE OF THE U.S. IN LAST 30 DAYS: No - HPI Notes: 68-year-old male presents to the emergency department for evaluation of "abnormal lab results." Patient has a PICC line and is receiving daily vancomycin for a right hip ORIF that became infected. Patient states that the infected hardware was taken out and new hardware was put in and the patient has been receiving vancomycin on a daily basis since. Patient denies dizziness, shortness of breath, chest pain, abdominal pain, nausea and vomiting, right hip pain. Patient also denies change in bowel movements, color bowel movements, black tarry stools, hematemesis. Patient was told to come to the emergency department for evaluation because his blood drawl today was reportedly significant for a hemoglobin of 9.5. His last hemoglobin was reportedly 12. The patient's is at the bedside and relates to this MD that apparently the PA with [facility] where the patient has been treated ordered a CTA of the right lower extremity with and without contrast. The showed this MD that the order was placed today on the patient's "[facility] MyChart". - Related Data Allergies/Adverse Reactions: Odwicnx-Tno-Wnx Reductase Inhibitor Adverse Reaction (Unknown, Verified 03/23/19 14:43) Home Medications: cipro. vancomycin. amlodipine. gabapentin. linsinopril. metoprolol. atorvastatin. cholecalciferol. finasteride. furosemide. novolog. glargine. levothyroxine. lidocaine. sertraline. tamsulosin Past Medical History - General Information source: Patient - Social History Smoking Status: Never Smoker Frequency of alcohol use: Rare Drug Abuse: None Family History: Reviewed & Not Pertinent, Hypertension Patient has suicidal ideation: No Patient has homicidal ideation: No - Past Medical History Cardiac Medical History: Reports: Hx Heart Attack - BYPASS SURG 2010, Hx Hypercholesterolemia, Hx Hypertension Denies: Hx Coronary Artery Disease Pulmonary Medical History: Denies: Hx Asthma, Hx Bronchitis, Hx COPD, Hx Pneumonia Neurological Medical History: Denies: Hx Cerebrovascular Accident, Hx Seizures Endocrine Medical History: Reports: Hx Diabetes Mellitus Type 2 Renal/ Medical History: Denies: Hx Peritoneal Dialysis Musculoskeletal Medical History: 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, BILAT KNEES Psychiatric Medical History: Denies: Hx Depression Past Surgical History: Reports: Hx Cardiac Surgery - CABG, Hx Coronary Artery Bypass Graft, Hx Orthopedic Surgery - right hip, Other - Colon resection - Immunizations Hx Diphtheria, Pertussis, Tetanus Vaccination: No Review of Systems - Review of Systems Constitutional: No symptoms reported EENT: No symptoms reported Cardiovascular: No symptoms reported Respiratory: No symptoms reported Gastrointestinal: No symptoms reported Genitourinary: No symptoms reported Male Genitourinary: No symptoms reported Musculoskeletal: No symptoms reported Skin: No symptoms reported Hematologic/Lymphatic: No symptoms reported Neurological/Psychological: No symptoms reported -: Yes All other systems reviewed and negative Physical Exam - Vital signs Vitals: Temp Pulse Resp BP Pulse Ox 98.1 F 48 L 18 129/48 H 100 03/23/19 14:41 03/23/19 14:41 03/23/19 14:41 03/23/19 14:41 03/23/19 14:41 - Notes Notes: PHYSICAL EXAMINATION: GENERAL: Well-appearing, well-nourished and in no acute distress. HEAD: Atraumatic, normocephalic. EYES: Pupils equal round and reactive to light, extraocular movements intact, sclera anicteric, conjunctiva are normal. ENT: nares patent, oropharynx clear without exudates. Moist mucous membranes. NECK: Normal range of motion, supple without lymphadenopathy LUNGS: Breath sounds clear to auscultation bilaterally and equal. No wheezes rales or rhonchi. HEART: bradycardia without murmurs ABDOMEN: Soft, nontender, normoactive bowel sounds. No guarding, no rebound. No masses appreciated. EXTREMITIES: right lower extremity: dp pulse 2+, cap refill < 2 seconds, sensation intact. NEUROLOGICAL: No focal neurological deficits. Moves all extremities spontaneously and on command. PSYCH: Normal mood, normal affect. SKIN: Warm, Dry, normal turgor, no rashes or lesions noted. Right hip surgical incision appears well-healed; there is no erythema, dehiscence or discharge noted. Course - Re-evaluation Re-evalutation: 03/23/19 19:55 Differential diagnosis: Acute anemia, acute hemorrhage, laboratory error. 03/23/19 20:29 Risk and benefits of CTA of right lower extremity discussed with the patient and patient's spouse. Conversation with Dr. Lakhani was discussed with patient and patient's spouse. Patient and patient spouse are in agreement that given the patient's hemoglobin is currently higher than it was reported to be at home and also given the patient's renal insufficiency, the benefits of a CTA with and with out contrast of the right lower extremity are not outweighed by the risks. All questions were answered prior to discharge. When asked if everything was ex plained to the patient and the patient's spouse in a manner that they understood, both answered in the affirmative. Emergency signs and symptoms, reasons to return to the emergency department were discussed with patient and patient's spouse. - Vital Signs Vital signs: Temp Pulse Resp BP Pulse Ox 98.1 F 48 L 18 129/48 H 100 03/23/19 14:41 03/23/19 14:41 03/23/19 14:41 03/23/19 14:41 03/23/19 14:41 - Laboratory Result Diagrams: 03/23/19 15:30 03/23/19 15:30 Laboratory results interpreted by me: 03/23/19 03/23/19 03/23/19 15:30 15:30 15:30 RBC 3.45 L Hgb 10.4 L Hct 31.0 L RDW 19.9 H Lymph % (Auto) 9.8 L Eos % (Auto) 10.9 H Absolute Eos (auto) 0.7 H APTT 41.0 H Chloride 110 H Carbon Dioxide 20 L BUN 83 H Creatinine 1.57 H Est GFR ( Amer) 54 L Est GFR (MDRD) Non-Af 44 L NT-Pro-B Natriuret Pep 03/23/19 15:30 RBC Hgb Hct RDW Lymph % (Auto) Eos % (Auto) Absolute Eos (auto) APTT Chloride Carbon Dioxide BUN Creatinine Est GFR ( Amer) Est GFR (MDRD) Non-Af NT-Pro-B Natriuret Pep 1120 H - Consults DR. LAKHANI, [facility] Time consulted: 20:15 - Case was discussed with Dr. Lakhani at [facility]. Dr. Lakhani reports patient had a hemoglobin of 8.4 measured on 03/09/19 when he looked at pt's records. Dr. Lakhani informed about pt's hgb of 10.5 here in ED and BUN and creatinine. Dr. Lakhani agrees that CTA of right LE doesn't seem warranted at this point and recommends pt contact his Orthopedist, Dr. Jacob, on 03/26/19 to let him know he came to ED today for evaluation Reason for consultation: 03/23/19 20:19 question about need for cta of right lower extremity Discharge - Discharge Clinical Impression: Renal insufficiency, History of right hip hemiarthroplasty Condition: Good Disposition: HOME, SELF-CARE Additional Instructions: Return to the Emergency Department without delay if any worse. FOLLOW UP WITH DR. JACOB'S OFFICE ON Tuesday03/26/19. HOME CARE INSTRUCTIONS & INFORMATION: Thank you for choosing us for your medical needs. We hope you're satisfied with the care you received. After you leave, you must properly care for your problem and, at the same time, observe its progress. Any condition can change. Some illnesses can change rapidly over hours or days. If your condition worsens, return to the Emergency Department or see your physician promptly. ABOUT YOUR X-RAYS AND EKG'S: If you had an EKG or X-rays taken, they have been read by the Emergency Physician. The X-rays and EKG's will also be read by a Radiologist or Senior Administrative Services Officer within 24 hours. If discrepancies are noted, you will be notified by telephone. Please be certain the ED has a correct telephone number & address where you can be reached. Also, realize that some fractures or abnormalities do not show up on initial X-rays. If your symptoms continue, see your physician. ABOUT YOUR LABORATORY TEST: If you had laboratory tests, the results have been reviewed by the Emergency Physician. Some test results (for example cultures) may not be available for several days. You will be contacted if any test result shows you need additional treatment. Please be certain the ED has a correct telephone number and address where you can be reached. ABOUT YOUR MEDICATIONS: You will receive instructions on how to take your medicine on the prescription label you receive. Additional information may be provided by the Pharmacy. If you have questions afterwards, call the ED for clarification or further instructions. Some prescribed medications may cause drowsiness. Do not perform tasks such as driving a car or operating machinery without consulting your Pharmacist. If you feel you need a refill of pain medication, your condition will need re-evaluation. Please do not call for a refill of any medication. ABOUT YOUR SIGNATURE: Signature of this document acknowledges to followin. Understanding that you received emergency treatment and that you may be released before al medical problems are known or treated. Please be certain the ED has a correct phone number & address where you can be reached. 2. Acknowledgement that you will arrange for follow-up care as recommended. 3. Authorization for the Emergency Physician to provide information to your follow-up Physician in order to maximize your care. AT ANY TIME, IF YOUR SYMPTOMS CHANGE SIGNIFICANTLY OR WORSEN OR YOU DEVELOP NEW SYMPTOMS, RETURN TO THE EMERGENCY DEPARTMENT IMMEDIATELY FOR RE-EVALUATION. OUR GOAL IS TO PROVIDE EXCELLENT MEDICAL CARE! WE HOPE THAT WE HAVE MET YOUR EXPECTATIONS DURING YOUR EMERGENCY DEPARTMENT VISIT AND THAT YOU FEEL YOU HAVE RECEIVED EXCELLENT CARE! Referrals: JIMMIE RODRIGUEZ, [Primary Care Provider] - Follow up as needed
[2019-03-23 20:54] VITALS: BP 129/39
== END 2019-03-23 20:54 | disposition home or self-care (01) ==
LOC: ER 13:49
DX: N28.9 Disorder of kidney and ureter, unspecified (principal); T81.40XA Infection following a procedure, unspecified, initial encounter; Y83.8 Other surgical procedures as the cause of abnormal reaction of the patient, or of later complication, without mention of misadventure at the time of the procedure; I10 Essential (primary) hypertension; E11.9 Type 2 diabetes mellitus without complications; E78.00 Pure hypercholesterolemia, unspecified; Z79.899 Other long term (current) drug therapy; Z79.4 Long term (current) use of insulin
CPT/HCPCS: 36415; 80053; 83880; 85025; 85610; 85730; 99283

== ENCOUNTER 2019-10-03 17:11 | Inpatient (IN) | payer OTHER, MEDICARE ==
--- NOTE | 2019-10-03 17:38 | ER Document Report ---
ED General - General Chief Complaint: Abnormal Lab Results Stated Complaint: WEAKNESS Time Seen by Provider: 10/03/19 17:35 Primary Care Provider: NIMO SOLANO [NO LOCAL MD] - Follow up as needed TRAVEL OUTSIDE OF THE [place] IN LAST 30 DAYS: No - HPI Notes: 69-year-old male presents with abnormal labs. Patient has recently undergone revision of his total hip, it got infected, he now has spacer with antibiotic beads. He is receiving IV cefepime 3 times a day. He states that he just got home yesterday after being discharged from rehab at [place]. He states that home health came today to draw routine labs. He was called and told that his potassium was high, he is unsure of the value. He currently denies any symptoms. He states he is compliant with all his medications. He states that he feels that his hip is healing well. No fever chills. No chest pain or shortness of breath. He notes that occasionally he will have a PVC. He mentioned at triage that he will occasionally have tremors to his upper tremors. He states that for the past week or so he will intermittently have bilateral hand tremors, last for a few seconds and quickly resolves. He denies any sympto ms currently. No weakness of his upper extremities. - Related Data Allergies/Adverse Reactions: Makqhmk-Ipg-Rbt Reductase Inhibitor Adverse Reaction (Unknown, Verified 03/23/19 14:43) Past Medical History - General Information source: Patient - Social History Smoking Status: Former Smoker Chew tobacco use (# tins/day): No Frequency of alcohol use: Rare Drug Abuse: None Family History: Reviewed & Not Pertinent, Hypertension - Past Medical History Cardiac Medical History: Reports: Hx Heart Attack - BYPASS SURG 2010, Hx Hypercholesterolemia, Hx Hypertension Denies: Hx Coronary Artery Disease Pulmonary Medical History: Denies: Hx Asthma, Hx Bronchitis, Hx COPD, Hx Pneumonia Neurological Medical History: Denies: Hx Cerebrovascular Accident, Hx Seizures Endocrine Medical History: Reports: Hx Diabetes Mellitus Type 2 Renal/ Medical History: Denies: Hx Peritoneal Dialysis Musculoskeletal Medical History: 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, BILAT KNEES Psychiatric Medical History: Denies: Hx Depression Past Surgical History: Reports: Hx Cardiac Surgery - CABG, Hx Coronary Artery Bypass Graft, Hx Orthopedic Surgery - right hip, Other - Colon resection - Immunizations Hx Diphtheria, Pertussis, Tetanus Vaccination: No Review of Systems - Review of Systems Constitutional: No symptoms reported EENT: No symptoms reported Cardiovascular: No symptoms reported Respiratory: No symptoms reported Gastrointestinal: No symptoms reported Genitourinary: No symptoms reported Musculoskeletal: No symptoms reported Skin: No symptoms reported Hematologic/Lymphatic: No symptoms reported Neurological/Psychological: denies: Weakness, Numbness Physical Exam - Vital signs Interpretation: No: Febrile - General General appearance: Appears well In distress: None - HEENT Head: Normocephalic, Atraumatic Eyes: Normal Pupils: PERRL - Respiratory Respiratory status: No respiratory distress Breath sounds: Normal - Cardiovascular Rhythm: Regular Heart sounds: Normal auscultation Pulses: Normal: Dorsalis pedis Normal capillary refill: Yes - Abdominal Inspection: Obese Tenderness: Nontender Notes: Scattered ecchymosis to pannus - Extremities General upper extremity: Normal inspection, Nontender General lower extremity: Normal inspection, Nontender - Wound VAC in place to right hip. 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 Currently undergoing IV cefepime treatment for infected TKA a. Per chart review potassium is 6.7, concerned this potentially represent hemolysis, will recheck labs including a mag/[place]. He otherwise voices no complaints. EKG has a narrow QRS and T waves are not peaked. 10/03/19 19:01 Labs have resulted. He is hyperkalemic. Additionally he appears to have an AK I with creatinine 3.7, last recorded value was 1.48. Will shift 10/03/19 19:01 10/03/19 19:15 Updated patient and his stepdaughter on results and need for admission 10/03/19 20:[address] Newman for admission 10/03/19 20:35 - Laboratory Result Diagrams: 10/03/19 18:07 10/03/19 18:07 Laboratory results interpreted by me: 10/03/19 10/03/19 10/03/19 18:07 18:07 19:35 RBC 3.14 L Hgb 10.0 L Hct 30.2 L RDW 16.9 H Lymph % (Auto) 11.7 L Eos % (Auto) 8.6 H Potassium 6.7 H* Chloride 120 H Carbon Dioxide 12 L BUN 94 H Creatinine 3.70 H Est GFR ( Amer) 20 L Est GFR (MDRD) Non-Af 16 L Glucose 149 H Phosphorus 7.1 H Total Protein 6.2 L Albumin 3.4 L Urine Protein 30 H Urine Blood SMALL H - EKG Interpretation by Me Additional EKG results interpreted by me: 10/03/19 18:10 EKG interpreted by me. Prolonged UT interval, sinus rhythm. Narrow QRS, QTC within normal limits. No peaked T waves. Discharge - Discharge Clinical Impression: Hyperkalemia, JOSE (acute kidney injury) Disposition: ADMITTED INPATIENT Admitting Provider: Paty (Hospitalist) Referrals: XIOMARA,NO [NO LOCAL MD] - Follow up as needed
[2019-10-03 18:18] LABS: ABSOLUTE BASOPHILS # (AUTO) 0.1 10^3/uL (0.0-0.2); ABSOLUTE EOSINOPHILS # (AUTO) 0.5 10^3/uL (0.0-0.6); ABSOLUTE LYMPHOCYTES (AUTO) 0.7 10^3/uL (0.5-4.7); ABSOLUTE MONOCYTES (AUTO) 0.6 10^3/uL (0.1-1.4); BASOPHILS % (AUTO) 1.2 % (0-2); TOTAL CELLS COUNTED % (AUTO) 100 %
[2019-10-03 18:27] LABS: ABSOLUTE NEUT (AUTO) 3.8 10^3/uL (1.7-8.2); EOSINOPHILS % (AUTO) 8.6 % (0-6); HEMATOCRIT 30.2 % (37.9-51.0); LYMPHOCYTES % (AUTO) 11.7 % (13-45); MEAN CORPUSCULAR HGB CONC 33.2 g/dL (32.0-36.0); MEAN CORPUSCULAR VOLUME 96 fl (80-97); MONOCYTES % (AUTO) 11.3 % (3-13); PLATELET COUNT 150 10^3/uL (150-450); RED BLOOD COUNT 3.14 10^6/uL (4.35-5.55); RED CELL DISTRIBUTION WIDTH 16.9 % (11.5-14.0); SEGMENTED NEUTROPHILS % (AUTO) 67.2 % (42-78); WHITE BLOOD COUNT 5.6 10^3/uL (4.0-10.5)
[2019-10-03 18:37] LABS: ALBUMIN 3.4 g/dL (3.5-5.0); ALKALINE PHOSPHATASE 93 U/L (38-126); ANION GAP 8 (5-19); ASPARTATE AMINO TRANSFERASE 21 U/L (17-59); BILIRUBIN,DIRECT 0.1 mg/dL (0.0-0.4); BILIRUBIN,TOTAL 0.3 mg/dL (0.2-1.3); BLOOD UREA NITROGEN 94 mg/dL (7-20); CALCIUM 8.4 mg/dL (8.4-10.2); CARBON DIOXIDE 12 mmol/L (22-30); CHLORIDE 120 mmol/L (98-107); GLUCOSE 149 mg/dL (75-110); PHOSPHORUS 7.1 mg/dL (2.5-4.5); TOTAL PROTEIN 6.2 g/dL (6.3-8.2)
[2019-10-03 18:44] LABS: POTASSIUM 6.7 mmol/L (3.6-5.0)
[2019-10-03] MEDS ORDERED: CALCIUM GLUCONATE 1000 MG/10 ML INJ IV ONE (18:58)
[2019-10-03] MEDS ORDERED: DEXTROSE 50%-WATER 25 GM/50 ML DISP.SYRIN IV ONE (18:59)
[2019-10-03] MEDS ORDERED: INSULIN REG, HUMAN 100 UNIT/ML 3 ML VIAL (PYX) IV ONE (19:00)
[2019-10-03] MEDS ORDERED: SODIUM BICARBONATE 8.4% INJ 50 MEQ/50 ML DISP.SYRIN IV ONE (19:00)
[2019-10-03 20:00] LABS: APPEARANCE,URINE SLIGHTLY-CLOUDY; BILIRUBIN,URINE NEGATIVE (NEGATIVE); COLOR,URINE YELLOW; GLUCOSE, URINE NEGATIVE (NEGATIVE); KETONES,URINE NEGATIVE (NEGATIVE); LEUKOCYTE ESTERASE,URINE NEGATIVE (NEGATIVE); NITRITE,URINE NEGATIVE (NEGATIVE); PROTEIN,URINE 30 mg/dL (NEGATIVE); URINE SPECIFIC GRAVITY 1.011; UROBILINOGEN,URINE NEGATIVE mg/dL (<2.0)
[2019-10-03] MEDS ORDERED: NORMAL SALINE 1000 ML 1,000 ML IV ONE (20:34)
[2019-10-03] MEDS ORDERED: (PENDING PHARMACY ID) (Acetaminophen [Acetaminophen Extra Strength] 500 MG) PO PRN (21:24)
[2019-10-03] MEDS ORDERED: GLUCAGON,HUMAN RECOMB 1 MG INJ IM PRN (21:26)
[2019-10-03] MEDS ORDERED: DEXTROSE 40% GEL 15 GM TUBE PO PRN ×2 (21:26)
[2019-10-03] MEDS ORDERED: DEXTROSE 50%-WATER 25 GM/50 ML DISP.SYRIN IV PRN ×2 (21:26)
--- NOTE | 2019-10-03 21:35 | PDOC H&P ---
History of Present Illness Admission Date/PCP: 10/03/19 21:23 [facility] History of Present Illness: JUDY SANTANA JR is a 69 year old male who had a recent revision of his right total hip arthroplasty due to infection, and has an antibiotic spacer in the hip now, and has a wound VAC in place and is on cefepime and rifampin "until they tell me to stop." He was discharged from rehab in [facility] yesterday. He said home health came out to see him and richardson some labs on him and sent him over here because his potassium was high. He said he has been feeling a little jittery for couple of days. He has not had any chest pain or palpitations. He has not missed any doses of his medications. He said he has been putting out some urine and takes Lasix twice a day. In the ER he was found to have a potassium of 6.7, elevated BUN, and worsening of his chronic kidney disease. He was not noted to have any EKG changes. Past Medical History Cardiac Medical History: Reports: Myocardial Infarction - BYPASS SURG 2010, Hyperlipidema, Hypertension Denies: Coronary Artery Disease Pulmonary Medical History: Denies: Asthma, Bronchitis, Chronic Obstructive Pulmonary Disease (COPD), Pneumonia Neurological Medical History: Denies: Seizures Endocrine Medical History: Reports: Diabetes Mellitus Type 2 Musculoskeltal Medical History: Reports: Arthritis - LEFT HIP, BILAT KNEES Psychiatric Medical History: Denies: Depression Hematology: Denies: Anemia Past Surgical History Past Surgical History: Reports: Coronary Artery Bypass Graft, Orthopedic Surgery - right hip, Other - Colon resection Social History Smoking Status: Former Smoker Electronic Cigarette use?: No Frequency of Alcohol Use: None Hx Recreational Drug Use: No Drugs: None Hx Prescription Drug Abuse: No Family History Family History: Reviewed & Not Pertinent, Hypertension Parental Family History Reviewed: Yes Children Family History Reviewed: Yes Sibling(s) Family History Reviewed.: Yes Medication/Allergy Home Medications: Amlodipine Besylate 5 mg PO DAILY 12/27/16 Aspirin [Aspirin EC] 81 mg PO DAILY 12/27/16 Finasteride 5 mg PO QHS 12/27/16 Furosemide [Lasix] 40 mg PO DAILY 12/27/16 Sertraline HCl 100 mg PO DAILY 12/27/16 Tamsulosin HCl 0.4 mg PO QHS 12/27/16 Tramadol HCl 50 mg PO BIDP PRN 12/27/16 Insulin Glargine,Hum.rec.anlog [Lantus (Pyxis) Insulin 100 Unit/1 ml 10 ml] 25 unit SUBCUT QHS 07/02/17 Acetaminophen [Acetaminophen Extra Strength] 500 mg PO Q4HP PRN 10/03/19 Ascorbic Acid 500 mg PO DAILY 10/03/19 Atorvastatin Calcium [Lipitor 40 mg Tablet] 40 mg PO QHS 10/03/19 Cefepime 2 gm/D5w RTU [Maxipime RTU 2 gm-D5w 50 ml Premix Bag] 2 gm IV Q8 10/03/19 Ergocalciferol (Vitamin D2) [Drisdol 50,000 unit (1.25MG) Capsule] 50,000 unit PO MOTH@1000 10/03/19 Ferrous Sulfate [Feosol 325 mg Tablet] 325 mg PO QHS 10/03/19 Gabapentin [Neurontin 300 mg Capsule] 300 mg PO Q12 10/03/19 Heparin Sodium,Porcine [Heparin Sodium] 5,000 unit SQ Q8 10/03/19 Insulin Lispro [Humalog Insulin (Lispro) 100 unit/mL] See Protocol SQ MEALS 02/09 Levothyroxine Sodium [Synthroid 0.05 mg Tablet] 0.05 mg PO Q6AM 10/03/19 Lidocaine HCl [Xylocaine 5% Ointment 35.44 gm] 1 applic TOP TIDP PRN 10/03/19 Lisinopril [Zestril] 20 mg PO DAILY 10/03/19 Polyethylene Glycol 3350 [Miralax Powder 17 gm/Packet] 17 gm PO DAILY 10/03/19 Rifampin [Rifadin] 450 mg PO Q12 10/03/19 Sennosides/Docusate 8.6-50 mg [Senna Plus Tablet] 1 tab PO BID 10/03/19 Allergies/Adverse Reactions: Woazudr-Ter-Hiz Reductase Inhibitor Adverse Reaction (Unknown, Verified 03/23/19 14:43) Review of Systems All systems: reviewed and no additional remarkable complaints except as stated - All systems were reviewed and were negative except as noted in the HPI Physical Exam Vital Signs: Temp Pulse Resp BP Pulse Ox 18 168/63 H 100 10/03/19 21:02 10/03/19 21:02 10/03/19 21:02 Intake & Output 08/01/1010/03/19 10/04/19 06:59 06:59 06:59 Weight 126.7 kg General appearance: PRESENT: no acute distress, cooperative, disheveled, morbidly obese Head exam: PRESENT: atraumatic, normocephalic Eye exam: PRESENT: EOMI, PERRLA. ABSENT: conjunctival injection, nystagmus, scleral icterus Ear exam: PRESENT: normal external ear exam Mouth exam: PRESENT: dry mucosa, neck supple Throat exam: ABSENT: post pharyngeal erythema Neck exam: PRESENT: full ROM. ABSENT: carotid bruit, JVD, lymphadenopathy, meningismus, tenderness, thyromegaly Respiratory exam: PRESENT: clear to auscultation mariam, symmetrical, unlabored. ABSENT: accessory muscle use, chest wall tenderness, crackles, prolonged expir atory phas, rhonchi, tachypnea, wheezes Cardiovascular exam: PRESENT: RRR, +S1, +S2 Pulses: PRESENT: normal carotid pulses Vascular exam: PRESENT: normal capillary refill GI/Abdominal exam: PRESENT: normal bowel sounds, soft, other - Pendulous abdominal pannus. ABSENT: distended, guarding, rebound, tenderness Extremities exam: PRESENT: other - Wound VAC right hip. ABSENT: clubbing, pedal edema Musculoskeletal exam: ABSENT: deformity Neurological exam: PRESENT: alert, awake, oriented to person, oriented to place, oriented to situation, CN II-XII grossly intact. ABSENT: motor sensory deficit Psychiatric exam: PRESENT: appropriate affect, normal mood Skin exam: PRESENT: dry, warm Results Laboratory Results: 10/03/19 18:07 10/03/19 18:07 10/03/19 10/03/19 10/03/19 18:07 18:07 19:35 WBC 5.6 RBC 3.14 L Hgb 10.0 L Hct 30.2 L MCV 96 MCH 32.0 MCHC 33.2 RDW 16.9 H Plt Count 150 Seg Neutrophils % 67.2 Sodium 140.4 Potassium 6.7 H* Chloride 120 H Carbon Dioxide 12 L Anion Gap 8 BUN 94 H Creatinine 3.70 H Est GFR ( Amer) 20 L Glucose 149 H Calcium 8.4 Phosphorus 7.1 H Magnesium 2.2 Total Bilirubin 0.3 AST 21 Alkaline Phosphatase 93 Total Protein 6.2 L Albumin 3.4 L Urine Color YELLOW Urine Appearance SLIGHTLY-CLOUDY Urine pH 5.0 Ur Specific [place] 1.011 Urine Protein 30 H Urine Glucose (UA) NEGATIVE Urine Ketones NEGATIVE Urine Blood SMALL H Urine Nitrite NEGATIVE Ur Leukocyte Esterase NEGATIVE Urine WBC (Auto) 1 Urine RBC (Auto) 0 Assessment and Plan - Diagnosis (1) Mdqjy-if-ryzqsyk kidney injury Qualifiers: Acute renal failure type: unspecified Chronic kidney disease stage: stage 3 (moderate) Qualified Code(s): N17.9 - Acute kidney failure, unspecified; N18.3 - Chronic kidney disease, stage 3 (moderate) Is this a current diagnosis for this admission?: Yes Plan: I think this is prerenal. We will give him some IV fluids. We will monitor for volume overload. We will hold his Lasix and his lisinopril for now. (2) Dehydration Is this a current diagnosis for this admission?: Yes Plan: IV fluids as previously noted (3) Left hip prosthetic joint infection Qualifiers: Encounter type: subsequent encounter Qualified Code(s): T84.52XD - Infection and inflammatory reaction due to internal left hip prosthesis, subsequent encounter Is this a current diagnosis for this admission?: Yes Plan: We will continue his wound VAC, his cefepime, and his rifampin as he was taking at home (4) Hyperkalemia Is this a current diagnosis for this admission?: Yes Plan: He received the usual medications for a potassium shift in the ER. I will also give him some patiromer and some IV fluids. We will repeat his potassium and keep him on telemetry. Lisinopril being held. - Time Time Spent with patient: 35 or more minutes Anticipated Discharge Disposition: Home with Home Health Anticipated Discharge Timeframe: within 72 hours - Inpatient Certification Based on my medical assessment, after consideration of the patient's comorbidities, presenting symptoms, or acuity I expect that the services needed warrant INPATIENT care.: Yes I certify that my determination is in accordance with my understanding of Medicare's requirements for reasonable and necessary INPATIENT services [42 CFR 412.3e].: Yes Medical Necessity: Significant Comorbidiites Make Outpatient Treatment Too Risky , Need Close Monitoring Due to Risk of Patient Decompensation, Need For IV Fluids, Need For Continuous Telemetry Monitoring, Risk of Complication if Not Cared For in Hospital
[2019-10-03] MEDS ORDERED: ACETAMINOPHEN 325 MG TABLET PO PRN (21:36)
[2019-10-03] MEDS ORDERED: CEFEPIME IV SCH (22:00)
[2019-10-03] MEDS ORDERED: INSULIN GLARGINE HUM REC ANLOG 25 UNIT SUBCUT SCH (22:00)
[2019-10-03] MEDS ORDERED: [UNRECOGNIZED DRUG - OTHER] IV SCH (22:00)
[2019-10-03] MEDS ORDERED: RIFAMPIN PO SCH (22:00)
[2019-10-04] MEDS: HEPARIN SOD (PORCINE) 5,000 UNIT/ML 1 ML VIAL SUBCUT SCH ×4 (00:20→21:02)
[2019-10-04] MEDS: INSULIN LISPRO 100 UNIT/ML 3 ML VIAL SUBCUT SCH ×5 (00:20→21:13)
[2019-10-04] MEDS ORDERED: INSULIN GLARGINE,HUM.REC.ANLOG 1,000 UNIT/10 ML VIAL (PYX) SUBCUT ONE (00:23)
[2019-10-04] MEDS: ATORVASTATIN CALCIUM 40 MG TABLET PO SCH ×2 (00:35→21:05)
[2019-10-04] MEDS: TAMSULOSIN HCL 0.4 MG CAP.SR.24H PO SCH ×2 (00:35→21:05)
[2019-10-04] MEDS: FERROUS SULFATE 325 MG TABLET PO SCH ×2 (00:35→21:06)
[2019-10-04] MEDS: FINASTERIDE 5 MG TABLET PO SCH ×2 (00:35→21:06)
[2019-10-04] MEDS: TRAMADOL HCL 50 MG TABLET PO PRN ×2 (00:36→23:11)
[2019-10-04] MEDS: CEFEPIME 1 GM/D5W RTU 1 GM/50 ML RTUPB IV SCH ×3 (00:36→23:11)
[2019-10-04] MEDS: INSULIN GLARGINE,HUM.REC.ANLOG 1,000 UNIT/10 ML VIAL SUBCUT SCH ×2 (00:37→21:16)
[2019-10-04] MEDS: PATIROMER 8.4 GM SUSP PACKET PO SCH ×2 (03:26→18:42)
[2019-10-04] MEDS: LEVOTHYROXINE SODIUM 0.05 MG TABLET PO SCH (06:26)
[2019-10-04 07:40] LABS: HEMATOCRIT 28.5 % (37.9-51.0); HEMOGLOBIN 9.4 g/dL (13.5-17.0); MEAN CORPUSCULAR HEMOGLOBIN 31.8 pg (27.0-33.4); MEAN CORPUSCULAR VOLUME 96 fl (80-97); PLATELET COUNT 124 10^3/uL (150-450); RED BLOOD COUNT 2.95 10^6/uL (4.35-5.55); WHITE BLOOD COUNT 5.6 10^3/uL (4.0-10.5)
[2019-10-04 07:58] LABS: ANION GAP 9 (5-19); BLOOD UREA NITROGEN 89 mg/dL (7-20); CALCIUM 8.2 mg/dL (8.4-10.2); CHLORIDE 123 mmol/L (98-107); GLUCOSE 79 mg/dL (75-110); POTASSIUM 5.8 mmol/L (3.6-5.0)
[2019-10-04 08:11] LABS: CARBON DIOXIDE 10 mmol/L (22-30)
[2019-10-04] MEDS: SERTRALINE HCL 50 MG TABLET PO SCH (09:06)
[2019-10-04] MEDS: ASCORBIC ACID 500 MG TABLET PO SCH (09:06)
[2019-10-04] MEDS: POLYETHYLENE GLYCOL 3350 POWDER 17 GM/1 PACKET PO SCH (09:06)
[2019-10-04] MEDS: SENNOSIDES/DOCUSATE 8.6-50 MG 1 EACH TABLET PO SCH ×2 (09:06→18:36)
[2019-10-04] MEDS: AMLODIPINE BESYLATE 5 MG TABLET PO SCH (09:06)
[2019-10-04] MEDS: ASPIRIN 81 MG TABLET, ENT COATED PO SCH (09:06)
--- NOTE | 2019-10-04 10:55 | PDOC PROGRESS REPORT ---
Subjective Progress Note for:: 10/04/19 Subjective:: 69 year old male who had a recent revision of his right total hip arthroplasty due to infection, and has an antibiotic spacer in the hip now, and has a wound VAC in place and is on cefepime and rifampin "until they tell me to stop." He was discharged from rehab in [facility] yesterday. He said home health came out to see him and richardson some labs on him and sent him over here because his potassium was high. He said he has been feeling a little jittery for couple of days. He has not had any chest pain or palpitations. He has not missed any doses of his medications. He said he has been putting out some urine and takes Lasix twice a day. In the ER he was found to have a potassium of 6.7, elevated BUN, and worsening of his chronic kidney disease. He was not noted to have any EKG changes. 10/04/2019-patient is comfortably in the bed communicating well. Not in distress. He agreed to stay in the hospital for a few more days. He admitted with creatinine of 3.8 with IV fluids improved to 3.4. On admission potassium was 6.7 with intervention came down to 5.8. He is on Veltassa at this time. Reason For Visit: DEHYDRATION, ACUTE ON CHRONIC KIDNEY INJURY, Physical Exam Vital Signs: Temp Pulse Resp BP Pulse Ox 97.7 F 59 L 19 91/58 L 100 10/04/19 07:31 10/04/19 07:31 10/04/19 07:31 10/04/19 07:31 10/04/19 07:31 Intake & Output 10/03/19 10/04/19 10/05/19 06:59 06:59 06:59 Intake Total 1050 Output Total 575 Balance 475 Weight 126.7 kg General appearance: PRESENT: no acute distress, obese, well-developed Head exam: PRESENT: atraumatic Eye exam: PRESENT: conjunctiva pale, PERRLA Ear exam: PRESENT: normal external ear exam Mouth exam: PRESENT: neck supple Neck exam: ABSENT: carotid bruit, JVD, lymphadenopathy, thyromegaly Respiratory exam: PRESENT: decreased breath sounds Cardiovascular exam: PRESENT: RRR. ABSENT: diastolic murmur, rubs, systolic murmur Vascular exam: PRESENT: normal capillary refill GI/Abdominal exam: PRESENT: normal bowel sounds, soft. ABSENT: distended, guarding, mass, organolmegaly, rebound, tenderness Rectal exam: PRESENT: deferred Extremities exam: PRESENT: full ROM. ABSENT: calf tenderness, clubbing, pedal edema Neurological exam: PRESENT: alert, awake, oriented to person, oriented to place, oriented to time, oriented to situation, CN II-XII grossly intact. ABSENT: motor sensory deficit Psychiatric exam: PRESENT: appropriate affect, normal mood. ABSENT: homicidal ideation, suicidal ideation Skin exam: PRESENT: other - Patient has a wound VAC in place for the right hip. Results Laboratory Results: 10/04/19 07:18 10/04/19 07:18 10/03/19 10/03/19 10/03/19 18:07 18:07 19:35 WBC 5.6 RBC 3.14 L Hgb 10.0 L Hct 30.2 L MCV 96 MCH 32.0 MCHC 33.2 RDW 16.9 H Plt Count 150 Seg Neutrophils % 67.2 Sodium 140.4 Potassium 6.7 H* Chloride 120 H Carbon Dioxide 12 L Anion Gap 8 BUN 94 H Creatinine 3.70 H Est GFR ( Amer) 20 L Glucose 149 H Calcium 8.4 Phosphorus 7.1 H Magnesium 2.2 Total Bilirubin 0.3 AST 21 Alkaline Phosphatase 93 Total Protein 6.2 L Albumin 3.4 L Urine Color YELLOW Urine Appearance SLIGHTLY-CLOUDY Urine pH 5.0 Ur Specific Coward 1.011 Urine Protein 30 H Urine Glucose (UA) NEGATIVE Urine Ketones NEGATIVE Urine Blood SMALL H Urine Nitrite NEGATIVE Ur Leukocyte Esterase NEGATIVE Urine WBC (Auto) 1 Urine RBC (Auto) 0 10/04/19 10/04/19 07:18 07:18 WBC 5.6 RBC 2.95 L Hgb 9.4 L Hct 28.5 L MCV 96 MCH 31.8 MCHC 33.0 RDW 17.0 H Plt Count 124 L Seg Neutrophils % Sodium 141.5 Potassium 5.8 H Chloride 123 H Carbon Dioxide 10 L* Anion Gap 9 BUN 89 H Creatinine 3.40 H Est GFR ( Amer) 22 L Glucose 79 Calcium 8.2 L Phosphorus Magnesium Total Bilirubin AST Alkaline Phosphatase Total Protein Albumin Urine Color Urine Appearance Urine pH Ur Specific Coward Urine Protein Urine Glucose (UA) Urine Ketones Urine Blood Urine Nitrite Ur Leukocyte Esterase Urine WBC (Auto) Urine RBC (Auto) Assessment and Plan - Diagnosis (1) JOSE (acute kidney injury) Is this a current diagnosis for this admission?: Yes Plan: I think this is prerenal. We will give him some IV fluids. We will monitor for volume overload. We will hold his Lasix and his lisinopril for now. 1320-patient admitted with acute on chronic kidney injury we do not have the baseline creatinine. On admission creatinine is 3.8 with IV fluids improved to 3.4. Serum bicarb is 10 most likely patient has a chronic kidney disease. 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 No complaints of right hip pain at this time. Physical therapy consult will be requested. (3) Hyperkalemia Is this a current diagnosis for this admission?: Yes Plan: He received the usual medications for a potassium shift in the ER. I will also give him some patiromer and some IV fluids. We will repeat his potassium and keep him on telemetry. Lisinopril being held. 10/04/2019-patient came in with serum potassium of 6.7 with intervention improved to 5.8. To give him 1 dose of Kayexalate at this time. (4) Obesity Qualifiers: Obesity type: unspecified obesity type Obesity classification: unspecified obesity classification Is this a current diagnosis for this admission?: No Plan: 1320-BMI is more than 40 diet exercise weight loss lifestyle modifications discussed with the patient. - Time Anticipated Discharge Disposition: Home with Home Health Anticipated Discharge Timeframe: within 72 hours
[2019-10-04] MEDS ORDERED: SODIUM POLYSTYRENE SULFONATE 15 GM/60 ML PO ONE (11:30)
--- NOTE | 2019-10-04 15:18 | EKG REPORT ---
SEVERITY:- ABNORMAL ECG - ACCELERATED JUNCTIONAL RHYTHM RIGHT BUNDLE BRANCH BLOCK INFERIOR INFARCT, AGE INDETERMINATE LATERAL INFARCT, OLD ANTERIOR INFARCT, AGE INDETERMINATE : Confirmed by: Sarabjit Manzano MD 04-Oct-2019 15:17:37
--- NOTE | 2019-10-04 15:18 | EKG REPORT ---
SEVERITY:- ABNORMAL ECG - SINUS RHYTHM FIRST DEGREE AV BLOCK INFERIOR INFARCT, AGE INDETERMINATE CONSIDER ANTERIOR INFARCT : Confirmed by: Sarabjit Manzano MD 04-Oct-2019 15:17:42
--- NOTE | 2019-10-04 15:19 | EKG REPORT ---
SEVERITY:- ABNORMAL ECG - SINUS BRADYCARDIA FIRST DEGREE AV BLOCK INFERIOR INFARCT, AGE INDETERMINATE ANTERIOR INFARCT, AGE INDETERMINATE : Confirmed by: Sarabjit Manzano MD 04-Oct-2019 15:18:06
[2019-10-04] MEDS: CITRIC ACID/SODIUM CITRATE ORAL SOLN 15 ML UDCUP PO SCH (18:35)
[2019-10-04] MEDS: RIFAMPIN 300 MG CAPSULE PO SCH (21:07)
[2019-10-05] MEDS: HEPARIN SOD (PORCINE) 5,000 UNIT/ML 1 ML VIAL SUBCUT SCH ×3 (05:11→22:13)
[2019-10-05] MEDS: RIFAMPIN 300 MG CAPSULE PO SCH ×3 (05:49→22:19)
[2019-10-05] MEDS: LEVOTHYROXINE SODIUM 0.05 MG TABLET PO SCH (05:49)
[2019-10-05] MEDS: INSULIN LISPRO 100 UNIT/ML 3 ML VIAL SUBCUT SCH ×4 (08:09→22:14)
[2019-10-05] MEDS: NORMAL SALINE 1000 ML 1,000 ML IV PRN ×2 (08:16→17:56)
[2019-10-05 08:50] LABS: ABSOLUTE BASOPHILS # (AUTO) 0.1 10^3/uL (0.0-0.2); ABSOLUTE EOSINOPHILS # (AUTO) 0.3 10^3/uL (0.0-0.6); ABSOLUTE LYMPHOCYTES (AUTO) 0.7 10^3/uL (0.5-4.7); ABSOLUTE MONOCYTES (AUTO) 0.6 10^3/uL (0.1-1.4); ABSOLUTE NEUT (AUTO) 5.2 10^3/uL (1.7-8.2); BASOPHILS % (AUTO) 1.4 % (0-2); HEMATOCRIT 30.5 % (37.9-51.0); HEMOGLOBIN 10.1 g/dL (13.5-17.0); LYMPHOCYTES % (AUTO) 10.7 % (13-45); MEAN CORPUSCULAR HEMOGLOBIN 31.5 pg (27.0-33.4); MEAN CORPUSCULAR HGB CONC 33.2 g/dL (32.0-36.0); MEAN CORPUSCULAR VOLUME 95 fl (80-97); MONOCYTES % (AUTO) 8.4 % (3-13); PLATELET COUNT 130 10^3/uL (150-450); RED CELL DISTRIBUTION WIDTH 16.7 % (11.5-14.0); SEGMENTED NEUTROPHILS % (AUTO) 75.5 % (42-78); TOTAL CELLS COUNTED % (AUTO) 100 %; WHITE BLOOD COUNT 6.9 10^3/uL (4.0-10.5)
[2019-10-05 09:10] LABS: ALBUMIN 3.7 g/dL (3.5-5.0); ALKALINE PHOSPHATASE 81 U/L (38-126); ASPARTATE AMINO TRANSFERASE 26 U/L (17-59); BILIRUBIN,DIRECT 0.1 mg/dL (0.0-0.4); BILIRUBIN,TOTAL 0.5 mg/dL (0.2-1.3); BLOOD UREA NITROGEN 81 mg/dL (7-20); CALCIUM 8.6 mg/dL (8.4-10.2); CHLORIDE 126 mmol/L (98-107); GLUCOSE 94 mg/dL (75-110); POTASSIUM 5.1 mmol/L (3.6-5.0); TOTAL PROTEIN 6.9 g/dL (6.3-8.2)
[2019-10-05 09:14] LABS: ANION GAP 12 (5-19)
[2019-10-05 09:41] LABS: CARBON DIOXIDE 10 mmol/L (22-30)
--- NOTE | 2019-10-05 10:41 | PDOC PROGRESS REPORT ---
Subjective Progress Note for:: 10/05/19 Subjective:: 69 year old male who had a recent revision of his right total hip arthroplasty due to infection, and has an antibiotic spacer in the hip now, and has a wound VAC in place and is on cefepime and rifampin "until they tell me to stop." He was discharged from rehab in [facility] yesterday. He said home health came out to see him and richardson some labs on him and sent him over here because his potassium was high. He said he has been feeling a little jittery for couple of days. He has not had any chest pain or palpitations. He has not missed any doses of his medications. He said he has been putting out some urine and takes Lasix twice a day. In the ER he was found to have a potassium of 6.7, elevated BUN, and worsening of his chronic kidney disease. He was not noted to have any EKG changes. 10/04/2019-patient is comfortably in the bed communicating well. Not in distress. He agreed to stay in the hospital for a few more days. He admitted with creatinine of 3.8 with IV fluids improved to 3.4. On admission potassium was 6.7 with intervention came down to 5.8. He is on Veltassa at this time. 10/05/19-patient is comfortably in the bed communicating well. Not in distress. Serum creatinine improved to 2.9. Serum potassium is improved to 5.1. Patient is receiving IV antibiotic therapy for right hip hardware infection. Patient has a wound VAC. Once stable patient prefers to go home. He is requesting for home health at the time of discharge. Reason For Visit: DEHYDRATION, ACUTE ON CHRONIC KIDNEY INJURY, Physical Exam Vital Signs: Temp Pulse Resp BP Pulse Ox 98.3 F 80 16 152/57 H 100 10/05/19 07:24 10/05/19 07:24 10/05/19 07:24 10/05/19 07:24 10/05/19 07:24 Intake & Output 10/04/19 10/05/19 10/06/19 06:59 06:59 06:59 Intake Total 1050 940 Output Total 575 2100 Balance 475 -1160 Weight 126.7 kg 123.2 kg General appearance: PRESENT: cooperative, morbidly obese Head exam: PRESENT: atraumatic Eye exam: PRESENT: PERRLA Ear exam: PRESENT: normal external ear exam Mouth exam: PRESENT: neck supple Teeth exam: PRESENT: poor dentation Neck exam: PRESENT: carotid bruit Respiratory exam: PRESENT: decreased breath sounds Cardiovascular exam: PRESENT: RRR. ABSENT: diastolic murmur, rubs, systolic murmur GI/Abdominal exam: PRESENT: normal bowel sounds, soft. ABSENT: distended, guarding, mass, organolmegaly, rebound, tenderness Rectal exam: PRESENT: deferred Extremities exam: PRESENT: full ROM. ABSENT: calf tenderness, clubbing, pedal edema Neurological exam: PRESENT: alert, awake, oriented to person, oriented to place, oriented to time, oriented to situation, CN II-XII grossly intact. ABSENT: motor sensory deficit Psychiatric exam: PRESENT: appropriate affect, normal mood. ABSENT: homicidal ideation, suicidal ideation Results Laboratory Results: 10/05/19 08:29 10/05/19 08:29 10/04/19 10/05/19 10/05/19 12:12 08: 08:29 WBC 6.9 RBC 3.20 L Hgb 10.1 L Hct 30.5 L MCV 95 MCH 31.5 MCHC 33.2 RDW 16.7 H Plt Count 130 L Seg Neutrophils % 75.5 Sodium 147.7 H Potassium 5.1 H Chloride 126 H Carbon Dioxide 10 L* Anion Gap 12 BUN 81 H Creatinine 2.93 H Est GFR ( Amer) 26 L Glucose 94 Calcium 8.6 Magnesium 1.8 Total Bilirubin 0.5 AST 26 Alkaline Phosphatase 81 Total Protein 6.9 Albumin 3.7 PTH Intact 65.3 H Assessment and Plan - Diagnosis (1) JOSE (acute kidney injury) Is this a current diagnosis for this admission?: Yes Plan: I think this is prerenal. We will give him some IV fluids. We will monitor for volume overload. We will hold his Lasix and his lisinopril for now. 10/04/19-patient admitted with acute on chronic kidney injury we do not have the baseline creatinine. On admission creatinine is 3.8 with IV fluids improved to 3.4. Serum bicarb is 10 most likely patient has a chronic kidney disease. 10/05/2019-patient admitted with JOSE we do not have the baseline creatinine on admission creatinine is 3.8. 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 No complaints of right hip pain at this time. Physical therapy consult will be requested. (3) Hyperkalemia Is this a current diagnosis for this admission?: Yes Plan: He received the usual medications for a potassium shift in the ER. I will also give him some patiromer and some IV fluids. We will repeat his potassium and keep him on telemetry. Lisinopril being held. 10/04/2019-patient came in with serum potassium of 6.7 with intervention improved to 5.8. To give him 1 dose of Kayexalate at this time. 10/04- potassium of 5.1 .. to clsely monitor potassium. (4) Obesity Qualifiers: Obesity type: unspecified obesity type Obesity classification: unspecified obesity classification Is this a current diagnosis for this admission?: No (5) Hypertension Qualifiers: Hypertension type: essential hypertension Qualified Code(s): I10 - Essential (primary) hypertension Is this a current diagnosis for this admission?: No Plan: 10/05/2019-has history of chronic essential hypertension blood pressure is 146/55. Plan is to resume his home medications at this time. (6) Obesity (BMI 30-39.9) Is this a current diagnosis for this admission?: No Plan: 10/04--diet exercise weight loss lifestyle modifications discussed with the patient. High BMI most likely secondary to high calorie intake. Dietary consult will be requested. - Time Anticipated Discharge Disposition: Home with Home Health Anticipated Discharge Timeframe: within 72 hours
[2019-10-05] MEDS: POLYETHYLENE GLYCOL 3350 POWDER 17 GM/1 PACKET PO SCH (10:42)
[2019-10-05] MEDS: SENNOSIDES/DOCUSATE 8.6-50 MG 1 EACH TABLET PO SCH ×2 (10:43→22:20)
[2019-10-05] MEDS: ASPIRIN 81 MG TABLET, ENT COATED PO SCH (10:48)
[2019-10-05] MEDS: ASCORBIC ACID 500 MG TABLET PO SCH (10:49)
[2019-10-05] MEDS: SERTRALINE HCL 50 MG TABLET PO SCH (10:49)
[2019-10-05] MEDS: AMLODIPINE BESYLATE 5 MG TABLET PO SCH (10:49)
[2019-10-05] MEDS: TRAMADOL HCL 50 MG TABLET PO PRN (13:00)
[2019-10-05] MEDS: CITRIC ACID/SODIUM CITRATE ORAL SOLN 15 ML UDCUP PO SCH ×2 (13:02→22:19)
[2019-10-05] MEDS: CEFEPIME 1 GM/D5W RTU 1 GM/50 ML RTUPB IV SCH (13:02)
[2019-10-05] MEDS: PATIROMER 8.4 GM SUSP PACKET PO SCH (19:08)
--- NOTE | 2019-10-05 19:32 | PDOC CONSULTATION ---
Consultation Consult Date: 10/05/19 Provider Consulted: DANIELLE CURTIS JR History of Present Illness Admission Date/PCP: 10/03/19 21:[facility] History of Present Illness: JUDY SANTANA JR is a 69 year old male who presented to the emergency department with hyperkalemia. He has a complicated history of multiple revision right hip surgeries. Is been performed at [place]. He presented with a negative pressure wound dressing that was evaluated the post admission and upon removing the dressing a substantial amount of fluid leaked from his wound. He is not complaining any pain at this time. His who is with him at bedside does most of the discussion and history. He was recently seen at [place] this past Tuesday at that time they removed the dressing and there was continued wound drainage as well. They were discharged in spite of this with continued VAC use to be seen again in a week. There were no other acute orthopedic needs at this time. There is no current concern of sepsis. Past Medical History Cardiac Medical History: Reports: Myocardial Infarction - BYPASS SURG 2010, Hyperlipidema, Hypertension Denies: Coronary Artery Disease Pulmonary Medical History: Denies: Asthma, Bronchitis, Chronic Obstructive Pulmonary Disease (COPD), Pneumonia Neurological Medical History: Denies: Seizures Endocrine Medical History: Reports: Diabetes Mellitus Type 2 Musculoskeltal Medical History: Reports: Arthritis - LEFT HIP, BILAT KNEES Psychiatric Medical History: Denies: Depression Hematology: Denies: Anemia Past Surgical History Past Surgical History: Reports: Coronary Artery Bypass Graft, Orthopedic Surgery - right hip, Other - Colon resection Social History Smoking Status: Former Smoker Electronic Cigarette use?: No Frequency of Alcohol Use: None Hx Recreational Drug Use: No Drugs: None Hx Prescription Drug Abuse: No Family History Family History: Reviewed & Not Pertinent, Hypertension Parental Family History Reviewed: No Children Family History Reviewed: NA Sibling(s) Family History Reviewed.: NA Medication/Allergy Home Medications: Amlodipine Besylate 5 mg PO DAILY 12/27/16 Aspirin [Aspirin EC] 81 mg PO DAILY 12/27/16 Finasteride 5 mg PO QHS 12/27/16 Furosemide [Lasix] 40 mg PO DAILY 12/27/16 Sertraline HCl 100 mg PO DAILY 12/27/16 Tamsulosin HCl 0.4 mg PO QHS 12/27/16 Tramadol HCl 50 mg PO BIDP PRN 12/27/16 Insulin Glargine,Hum.rec.anlog [Lantus (Pyxis) Insulin 100 Unit/1 ml 10 ml] 25 unit SUBCUT QHS 07/02/17 Acetaminophen [Acetaminophen Extra Strength] 500 mg PO Q4HP PRN 10/03/19 Ascorbic Acid 500 mg PO DAILY 10/03/19 Atorvastatin Calcium [Lipitor 40 mg Tablet] 40 mg PO QHS 10/03/19 Cefepime 2 gm/D5w RTU [Maxipime RTU 2 gm-D5w 50 ml Premix Bag] 2 gm IV Q8 10/03/19 Ergocalciferol (Vitamin D2) [Drisdol 50,000 unit (1.25MG) Capsule] 50,000 unit PO MOTH@1000 10/03/19 Ferrous Sulfate [Feosol 325 mg Tablet] 325 mg PO QHS 10/03/19 Gabapentin [Neurontin 300 mg Capsule] 300 mg PO Q12 10/03/19 Heparin Sodium,Porcine [Heparin Sodium] 5,000 unit SQ Q8 10/03/19 Insulin Lispro [Humalog Insulin (Lispro) 100 unit/mL] See Protocol SQ MEALS 10/03/19 Levothyroxine Sodium [Synthroid 0.05 mg Tablet] 0.05 mg PO Q6AM 10/03/19 Lidocaine HCl [Xylocaine 5% Ointment 35.44 gm] 1 applic TOP TIDP PRN 10/03/19 Lisinopril [Zestril] 20 mg PO DAILY 10/03/19 Polyethylene Glycol 3350 [Miralax Powder 17 gm/Packet] 17 gm PO DAILY 10/03/19 Rifampin [Rifadin] 450 mg PO Q12 10/03/19 Sennosides/Docusate 8.6-50 mg [Senna Plus Tablet] 1 tab PO BID 10/03/19 Allergies/Adverse Reactions: [id number]-Lya Reductase Inhibitor Adverse Reaction (Unknown, Verified 03/23/19 14:43) Review of Systems Review of Systems: Constitutional: ABSENT: anorexia, chills, night sweats Cardiovascular: ABSENT: chest pain Respiratory: ABSENT: dyspnea Gastrointestinal: ABSENT: vomiting Genitourinary: ABSENT: dysuria Integumentary: Present: Rash, skin irritation about the dressing site Neurological: Patient is relatively noncontributory regards to history. He responds appropriately but infrequently. Psychiatric: ABSENT: hallucinations Hematologic/Lymphatic: ABSENT: easy bleeding Physical Exam Vital Signs: Temp Pulse Resp BP Pulse Ox 98.6 F 59 L 16 141/40 H 100 10/05/19 16:24 10/05/19 16:24 10/05/19 16:24 10/05/19 16:24 10/05/19 16:24 Intake & Output 10/04/19 10/05/19 10/06/19 06:59 06:59 06:59 Intake Total 6321 960 5326 Output Total 575 2100 350 Balance 475 -1160 650 Weight 126.7 kg 123.2 kg Physical Exam: General appearance: PRESENT: no acute distress, cooperative, obese Head exam: PRESENT: atraumatic, normocephalic Eye exam: PRESENT: EOMI Ear exam: PRESENT: normal external ear exam Mouth exam: PRESENT: neck supple Neck exam: ABSENT: tracheal deviation Respiratory exam: PRESENT: symmetrical, unlabored. ABSENT: accessory muscle use, wheezes Pulses: PRESENT: normal radial pulses, normal dorsalis pedis pulse Vascular exam: PRESENT: normal capillary refill GI/Abdominal exam: ABSENT: distended, firm Extremities exam: PRESENT: full ROM of bilateral shoulders, elbows wrists, knees Musculoskeletal exam: PRESENT: full ROM, normal inspection of all 4 extremities aside from that noted below. Neurological exam: PRESENT: alert, awake Psychiatric exam: PRESENT: appropriate affect. ABSENT: agitated Focused psych exam: ABSENT: catatonic Skin exam: PRESENT: Mild rash present about the wound potentially due to multiple adhesive applications. Otherwise the skin appears healthy without signs of infection, no redness no signs of cellulitis. All as above aside from that noted in the HPI and the following: Right lower extremity -Pulses 2+ distally -Compartments soft -Sensation grossly intact to L3-4-5 S1 -Motor grossly intact to EHL TA gastroc and quad -Wound appears to be healing well, there is a small area between 2 sutures that has a small opening that is able to be expressed of serous fluid without overt infectious presentation. -Pain to range of motion right hip Results Laboratory Results: 10/05/19 08:29 10/05/19 08:29 10/05/19 10/05/19 08:29 08:29 WBC 6.9 RBC 3.20 L Hgb 10.1 L Hct 30.5 L MCV 95 MCH 31.5 MCHC 33.2 RDW 16.7 H Plt Count 130 L Seg Neutrophils % 75.5 Sodium 147.7 H Potassium 5.1 H Chloride 126 H Carbon Dioxide 10 L* Anion Gap 12 BUN 81 H Creatinine 2.93 H Est GFR ( Amer) 26 L Glucose 94 Calcium 8.6 Magnesium 1.8 Total Bilirubin 0.5 AST 26 Alkaline Phosphatase 81 Total Protein 6.9 Albumin 3.7 Assessment & Plan - Diagnosis (1) Left hip prosthetic joint infection Qualifiers: Encounter type: subsequent encounter Qualified Code(s): T84.52XD - Infection and inflammatory reaction due to internal left hip prosthesis, subsequent encounter Is this a current diagnosis for this admission?: Yes Plan: At this time, given the recognition of the drainage by his primary surgical team, the need to urgently transfer the patient back to [place] is not necessary. I am happy to keep an eye on the patient while in-house. If there is any signs of sepsis or recurrent infection that needs acute management, please contact me. The patient's has notified the surgical team at [place] that the patient is now admitted to [place] and has continued drainage. If they request transfer then consider pending patient's stability with his other medical comorbidities. -Maintain wound VAC, reapply 3 to 5 days.
[2019-10-05] MEDS: INSULIN GLARGINE,HUM.REC.ANLOG 1,000 UNIT/10 ML VIAL SUBCUT SCH (22:17)
[2019-10-05] MEDS: ATORVASTATIN CALCIUM 40 MG TABLET PO SCH (22:19)
[2019-10-05] MEDS: TAMSULOSIN HCL 0.4 MG CAP.SR.24H PO SCH (22:19)
[2019-10-05] MEDS: FERROUS SULFATE 325 MG TABLET PO SCH (22:19)
[2019-10-05] MEDS: FINASTERIDE 5 MG TABLET PO SCH (22:19)
[2019-10-06] MEDS: CEFEPIME 1 GM/D5W RTU 1 GM/50 ML RTUPB IV SCH ×2 (00:04→12:47)
[2019-10-06] MEDS: NORMAL SALINE 1000 ML 1,000 ML IV PRN (04:35)
[2019-10-06] MEDS: HEPARIN SOD (PORCINE) 5,000 UNIT/ML 1 ML VIAL SUBCUT SCH ×3 (05:09→22:22)
[2019-10-06] MEDS: ONDANSETRON HCL INJ/PF 4 MG/2 ML SDV IV PRN (05:12)
[2019-10-06] MEDS: RIFAMPIN 300 MG CAPSULE PO SCH ×3 (05:13→22:22)
[2019-10-06] MEDS: LEVOTHYROXINE SODIUM 0.05 MG TABLET PO SCH (05:13)
[2019-10-06 05:29] LABS: ABSOLUTE BASOPHILS # (AUTO) 0.1 10^3/uL (0.0-0.2); ABSOLUTE EOSINOPHILS # (AUTO) 0.3 10^3/uL (0.0-0.6); ABSOLUTE LYMPHOCYTES (AUTO) 0.8 10^3/uL (0.5-4.7); ABSOLUTE MONOCYTES (AUTO) 0.6 10^3/uL (0.1-1.4); ABSOLUTE NEUT (AUTO) 4.1 10^3/uL (1.7-8.2); BASOPHILS % (AUTO) 1.3 % (0-2); EOSINOPHILS % (AUTO) 4.5 % (0-6); HEMATOCRIT 28.4 % (37.9-51.0); HEMOGLOBIN 9.5 g/dL (13.5-17.0); LYMPHOCYTES % (AUTO) 14.3 % (13-45); MEAN CORPUSCULAR HEMOGLOBIN 32.4 pg (27.0-33.4); MEAN CORPUSCULAR HGB CONC 33.3 g/dL (32.0-36.0); MEAN CORPUSCULAR VOLUME 97 fl (80-97); MONOCYTES % (AUTO) 10.2 % (3-13); PLATELET COUNT 108 10^3/uL (150-450); RED BLOOD COUNT 2.92 10^6/uL (4.35-5.55); RED CELL DISTRIBUTION WIDTH 16.7 % (11.5-14.0); SEGMENTED NEUTROPHILS % (AUTO) 69.7 % (42-78); TOTAL CELLS COUNTED % (AUTO) 100 %; WHITE BLOOD COUNT 5.9 10^3/uL (4.0-10.5)
[2019-10-06 05:47] LABS: ALBUMIN 3.4 g/dL (3.5-5.0); ALKALINE PHOSPHATASE 78 U/L (38-126); ANION GAP 7 (5-19); ASPARTATE AMINO TRANSFERASE 19 U/L (17-59); BILIRUBIN,TOTAL 0.4 mg/dL (0.2-1.3); BLOOD UREA NITROGEN 75 mg/dL (7-20); CALCIUM 8.4 mg/dL (8.4-10.2); CARBON DIOXIDE 11 mmol/L (22-30); CHLORIDE 129 mmol/L (98-107); GLUCOSE 90 mg/dL (75-110); POTASSIUM 4.5 mmol/L (3.6-5.0); TOTAL PROTEIN 6.5 g/dL (6.3-8.2)
--- NOTE | 2019-10-06 11:46 | PDOC PROGRESS REPORT ---
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 He said home health came out to see him and richardson some labs on him and sent him over here because his potassium was high. He said he has been feeling a little jittery for couple of days. He has not had any chest pain or palpitations. He has not missed any doses of his medications. He said he has been putting out some urine and takes Lasix twice a day. In the ER he was found to have a potassium of 6.7, elevated BUN, and worsening of his chronic kidney disease. He was not noted to have any EKG changes. 10/04/2019-patient is comfortably in the bed communicating well. Not in distress. He agreed to stay in the hospital for a few more days. He admitted with creatinine of 3.8 with IV fluids improved to 3.4. On admission potassium was 6.7 with intervention came down to 5.8. He is on Veltassa at this time. 10/05/19-patient is comfortably in the bed communicating well. Not in distress. Serum creatinine improved to 2.9. Serum potassium is improved to 5.1. Patient is receiving IV antibiotic therapy for right hip hardware infection. Patient has a wound VAC. Once stable patient prefers to go home. He is requesting for home health at the time of discharge. 10/06/2019-no acute events in the last 24 hours. Patient afebrile. WBC count is 5900 today. Creatinine improved to 2.74. Bicarb is still 11. Plan is to increase the Bicitra to 30 mL 3 times daily. Reason For Visit: DEHYDRATION, ACUTE ON CHRONIC KIDNEY INJURY, Physical Exam Vital Signs: Temp Pulse Resp BP Pulse Ox 98.7 F 58 L 24 H 157/62 H 100 10/06/19 08:26 10/06/19 08:26 10/06/19 08:26 10/06/19 08:26 10/06/19 08:26 Intake & Output 10/05/19 10/06/19 10/07/19 06:59 06:59 06:59 Intake Total 940 2200 Output Total 2100 1450 Balance -1160 750 Weight 123.2 kg 112.7 kg General appearance: PRESENT: no acute distress, morbidly obese Head exam: PRESENT: atraumatic Eye exam: PRESENT: PERRLA Mouth exam: PRESENT: moist, tongue midline Teeth exam: PRESENT: poor dentation Neck exam: ABSENT: carotid bruit, JVD, lymphadenopathy, thyromegaly Respiratory exam: PRESENT: clear to auscultation mariam. ABSENT: rales, rhonchi, wheezes Cardiovascular exam: PRESENT: RRR. ABSENT: diastolic murmur, rubs, systolic murmur GI/Abdominal exam: PRESENT: normal bowel sounds, soft. ABSENT: distended, guarding, mass, organolmegaly, rebound, tenderness Rectal exam: PRESENT: deferred Gentrourinary exam: PRESENT: indwelling catheter Extremities exam: PRESENT: other Neurological exam: PRESENT: alert, awake, oriented to person, oriented to place, oriented to time, oriented to situation, CN II-XII grossly intact. ABSENT: motor sensory deficit Skin exam: PRESENT: other - Wound appears healing well. Slight serous drainage from the small opening seen. Results Laboratory Results: 10/06/19 05:07 10/06/19 05:07 10/06/19 10/06/19 05:07 05:07 WBC 5.9 RBC 2.92 L Hgb 9.5 L Hct 28.4 L MCV 97 MCH 32.4 MCHC 33.3 RDW 16.7 H Plt Count 108 L Seg Neutrophils % 69.7 Sodium 147.2 H Potassium 4.5 Chloride 129 H Carbon Dioxide 11 L Anion Gap 7 BUN 75 H Creatinine 2.74 H Est GFR ( Amer) 28 L Glucose 90 Calcium 8.4 Magnesium 1.7 Total Bilirubin 0.4 AST 19 Alkaline Phosphatase 78 Total Protein 6.5 Albumin 3.4 L Assessment and Plan - Diagnosis (1) JOSE (acute kidney injury) Is this a current diagnosis for this admission?: Yes Plan: I think this is prerenal. We will give him some IV fluids. We will monitor for volume overload. We will hold his Lasix and his lisinopril for now. 10/04/19-patient admitted with acute on chronic kidney injury we do not have the baseline creatinine. On admission creatinine is 3.8 with IV fluids improved to 3.4. Serum bicarb is 10 most likely patient has a chronic kidney disease. 10/05/2019-patient admitted with JOSE we do not have the baseline creatinine on admission creatinine is 3.8. Improved to 2.9 10/06/19-serum creatinine today is 2.74. Continue to improve on daily basis. Patient is nonoliguric. Most likely patient has underlying chronic kidney disease. 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 No complaints of right hip pain at this time. Physical therapy consult will be requested. 10/06/19-patient is receiving IV cefepime, rifampin with antibiotic spacer. Surgical consult was requested input is sincerely appreciated. Plan is to continue wound VAC as recommended by Dr. Mireles. (3) Hyperkalemia Is this a current diagnosis for this admission?: Yes Plan: He received the usual medications for a potassium shift in the ER. I will also give him some patiromer and some IV fluids. We will repeat his potassium and keep him on telemetry. Lisinopril being held. 10/04/2019-patient came in with serum potassium of 6.7 with intervention improved to 5.8. To give him 1 dose of Kayexalate at this time. 10/04- potassium of 5.1 .. to clsely monitor potassium. 10/06/2019-serum potassium today is 4.5. Hyperkalemia is resolved. (4) Obesity Qualifiers: Obesity type: unspecified obesity type Obesity classification: unspecified obesity classification Is this a current diagnosis for this admission?: No Plan: 1320-BMI is more than 40 diet exercise weight loss lifestyle modifications discussed with the patient. (5) Hypertension Qualifiers: Hypertension type: essential hypertension Qualified Code(s): I10 - Essential (primary) hypertension Is this a current diagnosis for this admission?: No Plan: 10/05/2019-has history of chronic essential hypertension blood pressure is 146/55. Plan is to resume his home medications at this time. 10/06/2019-blood pressure today is 125/72. Stable. Plan is to continue the present management at this time. (6) Obesity (BMI 30-39.9) Is this a current diagnosis for this admission?: No Plan: 10/04--diet exercise weight loss lifestyle modifications discussed with the patient. High BMI most likely secondary to high calorie intake. Dietary consult will be requested. - Time Anticipated Discharge Disposition: Home with Home Health Anticipated Discharge Timeframe: within 72 hours
[2019-10-06] MEDS: ASCORBIC ACID 500 MG TABLET PO SCH (12:49)
[2019-10-06] MEDS: AMLODIPINE BESYLATE 5 MG TABLET PO SCH (12:50)
[2019-10-06] MEDS: ASPIRIN 81 MG TABLET, ENT COATED PO SCH (12:50)
[2019-10-06] MEDS: SENNOSIDES/DOCUSATE 8.6-50 MG 1 EACH TABLET PO SCH ×2 (12:50→18:13)
[2019-10-06] MEDS: SERTRALINE HCL 50 MG TABLET PO SCH (12:50)
[2019-10-06] MEDS: POLYETHYLENE GLYCOL 3350 POWDER 17 GM/1 PACKET PO SCH (12:51)
[2019-10-06] MEDS: CITRIC ACID/SODIUM CITRATE ORAL SOLN 15 ML UDCUP PO SCH ×3 (12:51→18:14)
[2019-10-06] MEDS: INSULIN LISPRO 100 UNIT/ML 3 ML VIAL SUBCUT SCH ×3 (12:52→22:00)
--- NOTE | 2019-10-06 18:13 | RADIOLOGY REPORT (SQ) ---
EXAM DESCRIPTION: HIP RIGHT AP/LATERAL IMAGES COMPLETED DATE/TIME: 10/06/2019 3:34 pm REASON FOR STUDY: hip replacement infection COMPARISON: None. NUMBER OF VIEWS: 3 view(s). TECHNIQUE: Digital radiographic images of the right hip post-procedure. LIMITATIONS: None. FINDINGS: BONES: Right femoral Metallic femoral joint prosthesis component is present. Acetabular c omponent appears to have been removed. No fracture identified. Severe arthrosis of the left hip nishant nt. SOFT TISSUES: Expected postoperative soft tissue changes. IMPRESSION: Right femoral Metallic femoral joint prosthesis component is present. Acetabular compon ent appears to have been removed. No fracture identified. 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 TECHNICAL DOCUMENTATION: JOB ID: [id number] [place]-72 2010 [employer]- All Rights Reserved Reading location - IP/workstation name: [email or web address]
[2019-10-06] MEDS: FERROUS SULFATE 325 MG TABLET PO SCH (22:22)
[2019-10-06] MEDS: ATORVASTATIN CALCIUM 40 MG TABLET PO SCH (22:22)
[2019-10-06] MEDS: FINASTERIDE 5 MG TABLET PO SCH (22:22)
[2019-10-06] MEDS: TAMSULOSIN HCL 0.4 MG CAP.SR.24H PO SCH (22:22)
[2019-10-06] MEDS: INSULIN GLARGINE,HUM.REC.ANLOG 1,000 UNIT/10 ML VIAL SUBCUT SCH (22:23)
[2019-10-07] MEDS: ONDANSETRON HCL INJ/PF 4 MG/2 ML SDV IV PRN ×2 (01:34→22:09)
[2019-10-07] MEDS: CEFEPIME 1 GM/D5W RTU 1 GM/50 ML RTUPB IV SCH ×3 (01:35→23:25)
[2019-10-07] MEDS: RIFAMPIN 300 MG CAPSULE PO SCH (05:34)
[2019-10-07] MEDS: HEPARIN SOD (PORCINE) 5,000 UNIT/ML 1 ML VIAL SUBCUT SCH ×3 (05:34→21:56)
[2019-10-07] MEDS: LEVOTHYROXINE SODIUM 0.05 MG TABLET PO SCH (05:34)
[2019-10-07 06:39] LABS: ALBUMIN 2.8 g/dL (3.5-5.0); ALKALINE PHOSPHATASE 67 U/L (38-126); ANION GAP 8 (5-19); ASPARTATE AMINO TRANSFERASE 19 U/L (17-59); BILIRUBIN,TOTAL 0.3 mg/dL (0.2-1.3); BLOOD UREA NITROGEN 68 mg/dL (7-20); CALCIUM 7.6 mg/dL (8.4-10.2); CHLORIDE 125 mmol/L (98-107); GLUCOSE 91 mg/dL (75-110); POTASSIUM 4.3 mmol/L (3.6-5.0); TOTAL PROTEIN 5.5 g/dL (6.3-8.2)
[2019-10-07 07:18] LABS: CARBON DIOXIDE 9 mmol/L (22-30)
[2019-10-07] MEDS: INSULIN LISPRO 100 UNIT/ML 3 ML VIAL SUBCUT SCH ×4 (07:35→21:57)
--- NOTE | 2019-10-07 08:25 | PDOC PROGRESS REPORT ---
Subjective Progress Note for:: 10/07/19 Subjective:: Wound VAC is holding place, patient reports no change in symptoms overnight. Reports his hip feels good, no complaints of pain at this time. Reason For Visit: DEHYDRATION, ACUTE ON CHRONIC KIDNEY INJURY, Physical Exam Vital Signs: Temp Pulse Resp BP Pulse Ox 98.0 F 53 L 18 120/77 100 10/07/19 04:56 10/07/19 04:56 10/07/19 04:56 10/07/19 04:56 10/07/19 04:56 Intake & Output 10/06/19 10/07/19 10/08/19 06:59 06:59 06:59 Intake Total 2200 910 50 Output Total 1450 1280 Balance 750 -370 50 Weight 112.7 kg 116.1 kg Physical Exam: No acute distress, alert and oriented x3, obese Right lower extremity -Pulses 2+ distally -Compartments soft -Sensation grossly intact to L3-4-5 S1 -Motor grossly intact to EHL TA gastroc and quad Incision currently well dressed with wound VAC, difficult to appreciate output given the absorbable beads in the VAC canister No further signs of progressive infection Results Laboratory Results: 10/07/19 05:53 10/07/19 05:53 10/07/19 10/07/19 05:53 05:53 WBC Cancelled RBC Cancelled Hgb Cancelled Hct Cancelled MCV Cancelled MCH Cancelled MCHC Cancelled RDW Cancelled Plt Count Cancelled Seg Neutrophils % Cancelled Sodium 142.0 Potassium 4.3 Chloride 125 H Carbon Dioxide 9 L* Anion Gap 8 BUN 68 H Creatinine 2.19 H Est GFR ( Amer) 36 L Glucose 91 Calcium 7.6 L Magnesium 1.6 Total Bilirubin 0.3 AST 19 Alkaline Phosphatase 67 Total Protein 5.5 L Albumin 2.8 L Impressions: Hip/Pelvis X-Ray 10/06/19 00:00 IMPRESSION: Right femoral Metallic femoral joint prosthesis component is present. Acetabular component appears to have been removed. No fracture identified. 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 Assessment & Plan - Diagnosis (1) Left hip prosthetic joint infection Qualifiers: Encounter type: subsequent encounter Qualified Code(s): T84.52XD - Infection and inflammatory reaction due to internal left hip prosthesis, subsequent encounter Is this a current diagnosis for this admission?: Yes Plan: [facility] aware of the patient's ongoing drainage. No indication for cur rent urgent or emergent surgery. If the patient were to become septic please notify me immediately as I will be available to temporize. Otherwise patient should be discharged when medically stable to return follow-up at [facility] for postoperative care. - Time Time Spent with patient: Less than 15 minutes
[2019-10-07] MEDS: ASCORBIC ACID 500 MG TABLET PO SCH (09:38)
[2019-10-07] MEDS: ASPIRIN 81 MG TABLET, ENT COATED PO SCH (09:39)
[2019-10-07] MEDS: POLYETHYLENE GLYCOL 3350 POWDER 17 GM/1 PACKET PO SCH (09:39)
[2019-10-07] MEDS: SERTRALINE HCL 50 MG TABLET PO SCH (09:39)
[2019-10-07] MEDS: AMLODIPINE BESYLATE 5 MG TABLET PO SCH (09:39)
[2019-10-07] MEDS: SENNOSIDES/DOCUSATE 8.6-50 MG 1 EACH TABLET PO SCH ×2 (09:39→18:21)
[2019-10-07] MEDS: CITRIC ACID/SODIUM CITRATE ORAL SOLN 15 ML UDCUP PO SCH ×3 (09:40→18:21)
--- NOTE | 2019-10-07 09:59 | PDOC PROGRESS REPORT ---
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 He said home health came out to see him and richardson some labs on him and sent him over here because his potassium was high. He said he has been feeling a little jittery for couple of days. He has not had any chest pain or palpitations. He has not missed any doses of his medications. He said he has been putting out some urine and takes Lasix twice a day. In the ER he was found to have a potassium of 6.7, elevated BUN, and worsening of his chronic kidney disease. He was not noted to have any EKG changes. 10/04/2019-patient is comfortably in the bed communicating well. Not in distress. He agreed to stay in the hospital for a few more days. He admitted with creatinine of 3.8 with IV fluids improved to 3.4. On admission potassium was 6.7 with intervention came down to 5.8. He is on Veltassa at this time. 10/05/19-patient is comfortably in the bed communicating well. Not in distress. Serum creatinine improved to 2.9. Serum potassium is improved to 5.1. Patient is receiving IV antibiotic therapy for right hip hardware infection. Patient has a wound VAC. Once stable patient prefers to go home. He is requesting for home health at the time of discharge. 10/06/2019-no acute events in the last 24 hours. Patient afebrile. WBC count is 5900 today. Creatinine improved to 2.74. Bicarb is still 11. Plan is to increase the Bicitra to 30 mL 3 times daily. 10/07/2019-no acute events in the last 24 hours. Afebrile. Kidney function continues to improve with creatinine of 2.19. Serum bicarb is 9 despite receiving Bicitra 30 mL p.o. 3 times daily. Patient is expressing desire to go home initially want to sign AMA. Later on he changed plans to decided to stay. Reason For Visit: DEHYDRATION, ACUTE ON CHRONIC KIDNEY INJURY, Physical Exam Vital Signs: Temp Pulse Resp BP Pulse Ox 98 F 48 L 19 134/45 H 100 10/07/19 08:00 10/07/19 08:00 10/07/19 08:00 10/07/19 08:00 10/07/19 08:00 Intake & Output 10/06/19 10/07/19 10/08/19 06:59 06:59 06:59 Intake Total 2200 910 50 Output Total 1450 1280 Balance 750 -370 50 Weight 112.7 kg 116.1 kg General appearance: PRESENT: no acute distress. ABSENT: well-developed Head exam: PRESENT: atraumatic Eye exam: ABSENT: PERRLA Mouth exam: PRESENT: moist, tongue midline Teeth exam: PRESENT: poor dentation Respiratory exam: PRESENT: clear to auscultation mariam. ABSENT: rales, rhonchi, wheezes Cardiovascular exam: PRESENT: RRR. ABSENT: diastolic murmur, rubs, systolic murmur Pulses: PRESENT: normal dorsalis pedis pul GI/Abdominal exam: PRESENT: normal bowel sounds, soft. ABSENT: distended, guarding, mass, organolmegaly, rebound, tenderness Rectal exam: PRESENT: deferred Gentrourinary exam: PRESENT: indwelling catheter Extremities exam: PRESENT: other - Wound VAC attached to the right hip. Neurological exam: PRESENT: alert, awake, oriented to person, oriented to place, oriented to time, oriented to situation, CN II-XII grossly intact. ABSENT: motor sensory deficit Psychiatric exam: PRESENT: agitated Results Laboratory Results: 10/07/19 08:48 10/07/19 05:53 10/07/19 10/07/19 10/07/19 05:53 05:53 08:48 WBC Cancelled Cancelled RBC Cancelled Cancelled Hgb Cancelled Cancelled Hct Cancelled Cancelled MCV Cancelled Cancelled MCH Cancelled Cancelled MCHC Cancelled Cancelled RDW Cancelled Cancelled Plt Count Cancelled Cancelled Seg Neutrophils % Cancelled Cancelled Sodium 142.0 Potassium 4.3 Chloride 125 H Carbon Dioxide 9 L* Anion Gap 8 BUN 68 H Creatinine 2.19 H Est GFR ( Amer) 36 L Glucose 91 Calcium 7.6 L Magnesium 1.6 Total Bilirubin 0.3 AST 19 Alkaline Phosphatase 67 Total Protein 5.5 L Albumin 2.8 L Impressions: Hip/Pelvis X-Ray 10/06/19 00:00 IMPRESSION: Right femoral Metallic femoral joint prosthesis component is present. Acetabular component appears to have been removed. No fracture identified. 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 Assessment and Plan - Diagnosis (1) JOSE (acute kidney injury) Is this a current diagnosis for this admission?: Yes Plan: I think this is prerenal. We will give him some IV fluids. We will monitor for volume overload. We will hold his Lasix and his lisinopril for now. 10/04/19-patient admitted with acute on chronic kidney injury we do not have the baseline creatinine. On admission creatinine is 3.8 with IV fluids improved to 3.4. Serum bicarb is 10 most likely patient has a chronic kidney disease. 10/05/2019-patient admitted with JOSE we do not have the baseline creatinine on admission creatinine is 3.8. Improved to 2.9 10/06/19-serum creatinine today is 2.74. Continue to improve on daily basis. Patient is nonoliguric. Most likely patient has underlying chronic kidney disease. 10/07/2019-patient admitted with acute kidney injury serum creatinine today is 2.19. Continue to improve. GFR is 36. Bicarb is 9 receiving Bicitra 30 mL p.o. 3 times daily. 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 No complaints of right hip pain at this time. Physical therapy consult will be requested. 10/06/19-patient is receiving IV cefepime, rifampin with antibiotic spacer. Surgical consult was requested input is sincerely appreciated. Plan is to con tinue wound VAC as recommended by Dr. Mireles. 10/07/2019-patient is receiving IV cefepime 1 g every 12 hours, rifampin 300 mg p.o. every 8 hours. Afebrile. WBC count within normal limits. PICC line was removed yesterday because of redness and swelling at the site. (3) Hyperkalemia Is this a current diagnosis for this admission?: Yes Plan: He received the usual medications for a potassium shift in the ER. I will also give him some patiromer and some IV fluids. We will repeat his potassium and keep him on telemetry. Lisinopril being held. 10/04/2019-patient came in with serum potassium of 6.7 with intervention improved to 5.8. To give him 1 dose of Kayexalate at this time. 10/04- potassium of 5.1 .. to clsely monitor potassium. 10/06/2019-serum potassium today is 4.5. Hyperkalemia is resolved. 10/07/19-serum potassium is 4.3 hyperkalemia is resolved. (4) Obesity Qualifiers: Obesity type: unspecified obesity type Obesity classification: unspecified obesity classification Is this a current diagnosis for this admission?: No Plan: 1320-BMI is more than 40 diet exercise weight loss lifestyle modifications discussed with the patient. (5) Hypertension Qualifiers: Hypertension type: essential hypertension Qualified Code(s): I10 - Essential (primary) hypertension Is this a current diagnosis for this admission?: No Plan: 10/05/2019-has history of chronic essential hypertension blood pressure is 146/55. Plan is to resume his home medications at this time. 10/06/2019-blood pressure today is 125/72. Stable. Plan is to continue the present management at this time. 10/07/2019-blood pressure today is 120/77. Stable. Plan is to continue the present management at this time. (6) Obesity (BMI 30-39.9) Is this a current diagnosis for this admission?: No Plan: 10/04--diet exercise weight loss lifestyle modifications discussed with the patient. High BMI most likely secondary to high calorie intake. Dietary consult will be requested. - Time Anticipated Discharge Disposition: Home with Home Health Anticipated Discharge Timeframe: within 48 hours
[2019-10-07 12:35] LABS: ABSOLUTE BASOPHILS # (AUTO) 0.1 10^3/uL (0.0-0.2); ABSOLUTE EOSINOPHILS # (AUTO) 0.3 10^3/uL (0.0-0.6); ABSOLUTE LYMPHOCYTES (AUTO) 0.8 10^3/uL (0.5-4.7); ABSOLUTE MONOCYTES (AUTO) 0.5 10^3/uL (0.1-1.4); EOSINOPHILS % (AUTO) 4.5 % (0-6); HEMOGLOBIN 8.4 g/dL (13.5-17.0); LYMPHOCYTES % (AUTO) 13.9 % (13-45); MEAN CORPUSCULAR HEMOGLOBIN 31.9 pg (27.0-33.4); MEAN CORPUSCULAR HGB CONC 33.8 g/dL (32.0-36.0); MEAN CORPUSCULAR VOLUME 94 fl (80-97); MONOCYTES % (AUTO) 8.4 % (3-13); PLATELET COUNT 100 10^3/uL (150-450); RED BLOOD COUNT 2.65 10^6/uL (4.35-5.55); RED CELL DISTRIBUTION WIDTH 16.2 % (11.5-14.0); SEGMENTED NEUTROPHILS % (AUTO) 71.2 % (42-78); TOTAL CELLS COUNTED % (AUTO) 100 %; WHITE BLOOD COUNT 5.6 10^3/uL (4.0-10.5)
[2019-10-07] MEDS: INSULIN GLARGINE,HUM.REC.ANLOG 1,000 UNIT/10 ML VIAL SUBCUT SCH (22:08)
[2019-10-07] MEDS: FERROUS SULFATE 325 MG TABLET PO SCH (22:08)
[2019-10-07] MEDS: ATORVASTATIN CALCIUM 40 MG TABLET PO SCH (22:08)
[2019-10-07] MEDS: FINASTERIDE 5 MG TABLET PO SCH (22:08)
[2019-10-07] MEDS: TAMSULOSIN HCL 0.4 MG CAP.SR.24H PO SCH (22:08)
[2019-10-08] MEDS: TRAMADOL HCL 50 MG TABLET PO PRN (03:21)
[2019-10-08] MEDS: HEPARIN SOD (PORCINE) 5,000 UNIT/ML 1 ML VIAL SUBCUT SCH ×2 (05:12→15:48)
[2019-10-08] MEDS: LEVOTHYROXINE SODIUM 0.05 MG TABLET PO SCH (05:35)
[2019-10-08] MEDS: INSULIN LISPRO 100 UNIT/ML 3 ML VIAL SUBCUT SCH ×2 (07:24→12:08)
[2019-10-08] MEDS: CITRIC ACID/SODIUM CITRATE ORAL SOLN 15 ML UDCUP PO SCH ×2 (10:09→15:49)
[2019-10-08] MEDS: AMLODIPINE BESYLATE 5 MG TABLET PO SCH (10:09)
[2019-10-08] MEDS: POLYETHYLENE GLYCOL 3350 POWDER 17 GM/1 PACKET PO SCH (10:09)
[2019-10-08] MEDS: ASPIRIN 81 MG TABLET, ENT COATED PO SCH (10:09)
[2019-10-08] MEDS: ASCORBIC ACID 500 MG TABLET PO SCH (10:09)
[2019-10-08] MEDS: SENNOSIDES/DOCUSATE 8.6-50 MG 1 EACH TABLET PO SCH (10:09)
[2019-10-08 10:28] LABS: ABSOLUTE BASOPHILS # (AUTO) 0.1 10^3/uL (0.0-0.2); ABSOLUTE EOSINOPHILS # (AUTO) 0.3 10^3/uL (0.0-0.6); ABSOLUTE LYMPHOCYTES (AUTO) 0.8 10^3/uL (0.5-4.7); ABSOLUTE MONOCYTES (AUTO) 0.6 10^3/uL (0.1-1.4); ABSOLUTE NEUT (AUTO) 5.2 10^3/uL (1.7-8.2); BASOPHILS % (AUTO) 1.1 % (0-2); EOSINOPHILS % (AUTO) 4.3 % (0-6); HEMATOCRIT 25.7 % (37.9-51.0); HEMOGLOBIN 8.7 g/dL (13.5-17.0); LYMPHOCYTES % (AUTO) 11.3 % (13-45); MEAN CORPUSCULAR HEMOGLOBIN 32.1 pg (27.0-33.4); MEAN CORPUSCULAR VOLUME 94 fl (80-97); MONOCYTES % (AUTO) 8.2 % (3-13); RED BLOOD COUNT 2.73 10^6/uL (4.35-5.55); RED CELL DISTRIBUTION WIDTH 16.2 % (11.5-14.0); SEGMENTED NEUTROPHILS % (AUTO) 75.1 % (42-78); TOTAL CELLS COUNTED % (AUTO) 100 %; WHITE BLOOD COUNT 6.9 10^3/uL (4.0-10.5)
[2019-10-08 10:51] LABS: ALBUMIN 3.1 g/dL (3.5-5.0); ALKALINE PHOSPHATASE 76 U/L (38-126); ANION GAP 10 (5-19); ASPARTATE AMINO TRANSFERASE 21 U/L (17-59); BILIRUBIN,TOTAL 0.2 mg/dL (0.2-1.3); BLOOD UREA NITROGEN 58 mg/dL (7-20); CALCIUM 7.6 mg/dL (8.4-10.2); CARBON DIOXIDE 11 mmol/L (22-30); CHLORIDE 120 mmol/L (98-107); GLUCOSE 121 mg/dL (75-110); TOTAL PROTEIN 5.7 g/dL (6.3-8.2)
[2019-10-08 11:05] LABS: PLATELET COUNT 95 10^3/uL (150-450)
[2019-10-08] MEDS: CEFEPIME 1 GM/D5W RTU 1 GM/50 ML RTUPB IV SCH (12:12)
[2019-10-08] MEDS ORDERED: LIDOCAINE 1% INJ-PF (10 MG/ML) 30 ML SDV ONE (13:06)
[2019-10-08] MEDS ORDERED: CEFAZOLIN INJ 1 GM VIAL ONE (13:18)
[2019-10-08] MEDS ORDERED: FENTANYL CITRATE INJ/PF 250 MCG/5 ML AMPULE ONE (13:19)
[2019-10-08] MEDS ORDERED: FENTANYL CITRATE INJ/PF 100 MCG/2 ML AMPUL ONE (14:17)
[2019-10-08] MEDS ORDERED: NORMAL SALINE 10 ML SDV (AFTER EACH USE) IV PRN (15:30)
--- NOTE | 2019-10-08 15:42 | RADIOLOGY REPORT (SQ) ---
EXAM DESCRIPTION: TUNNELED CENTRAL LINE IMAGES COMPLETED DATE/TIME: 10/08/2019 3:23 pm REASON FOR STUDY: NEED FOR VASCULAR ACCESS COMPARISON: None. FLUORO TIME: 23 2 images saved to PACS LIMITATIONS: None. PROCEDURE: After obtaining informed consent and explaining the risks and benefits of conscious sedat ion, the patient was brought to the special procedures suite and was placed supine on the fluoroscopy table. The patient was prepped and draped in the usual sterile fashion. IV conscious sedation was administered and physician direction by the registered nurse using 0 milligrams of Versed and 50 mi crograms of fentanyl. Physiologic monitoring was provided before, during, and after sedation. The t otal sedation time was 20 minutes. Documentation face to face time, the performing proceduralist, spent monitoring the patient: 15minute s. Using ultrasound guidance the right jugular vein was documented to be patent. Under direct ultrasoun d guidance jugular vein was cannulated using micropuncture technique. A 5 [place] sheath was placed. Image was saved to PACs. Site for the tunneled catheter was chosen. 1% lidocaine was used for loca l anesthesia. Catheter was pulled through the tunnel using standard technique. Measurement was obta ined in the PICC line cut to 25 cm. A 6 [place] peel-away sheath was placed over the indwelling wire. PICC line was then placed in the catheter tip positioned in the SVC. The line was easily flushed a n aspirated. Sterile dressing was applied. There were no complications. IMPRESSION: Tunneled central line placement using ultrasound an fluoroscopic guidance as described. COMMENT: Patient medication list reviewed: Yes- Quality ID# [id number]:Eligible professional attests to doc umenting in the medical record they obtained, updated, or reviewed the patient's current medications. Quality ID #76: The patient was prepped and draped using maximum sterile barrier technique including cap, mask, sterile gown, sterile gloves, a large sterile sheet, hand hygiene, and 2% Chlorhexidine fo r cutaneous antisepsis. When ultrasound is used, sterile ultrasound techniques are followed requiring sterile gel and sterile probes. Quality ID 145: Final reports for procedures using fluoroscopy that document radiation exposure sulaiman cody, or exposure time and number of fluorographic images (if radiation exposure indices are not avail able) TECHNICAL DOCUMENTATION: JOB ID: [id number] 2010 [employer]- All Rights Reserved rev Reading location - IP/workstation name: [email or web address]
--- NOTE | 2019-10-08 16:32 | PDOC DISCHARGE SUMMARY ---
Impression - Admit/DC Date/PCP Admission Date/Primary Care Provider: 10/03/19 21:[facility] Discharge Date: 10/08/19 - Discharge Diagnosis (1) JOSE (acute kidney injury) Is this a current diagnosis for this admission?: Yes (2) Infection of right prosthetic hip joint Is this a current diagnosis for this admission?: No (3) Hyperkalemia Is this a current diagnosis for this admission?: Yes (4) Obesity Is this a current diagnosis for this admission?: No (5) Hypertension Is this a current diagnosis for this admission?: No (6) Obesity (BMI 30-39.9) Is this a current diagnosis for this admission?: No - Assessment Summary: (1) JOSE (acute kidney injury) Is this a current diagnosis for this admission?: Yes Plan: I think this is prerenal. We will give him some IV fluids. We will monitor for volume overload. We will hold his Lasix and his lisinopril for now. 10/04/19-patient admitted with acute on chronic kidney injury we do not have the baseline creatinine. On admission creatinine is 3.8 with IV fluids improved to 3.4. Serum bicarb is 10 most likely patient has a chronic kidney disease. 10/05/2019-patient admitted with JOSE we do not have the baseline creatinine on admission creatinine is 3.8. Improved to 2.9 10/06/19-serum creatinine today is 2.74. Continue to improve on daily basis. Patient is nonoliguric. Most likely patient has underlying chronic kidney disease. 10/07/2019-patient admitted with acute kidney injury serum creatinine today is 2.19. Continue to improve. GFR is 36. Bicarb is 9 receiving Bicitra 30 mL p.o. 3 times daily. (2) Infection of right prosthetic hip joint Is this a current diagnosis for this admission?: No Plan: We will continue his wound VAC, his cefepime, and his rifampin as he was taking at home 10/04/2019-patient has a wound VAC attached to the right hip receiving IV cefe pime with the rifampin with antibiotic spacer. No complaints of right hip pain at this time. Physical therapy consult will be requested. 10/06/19-patient is receiving IV cefepime, rifampin with antibiotic spacer. Surgical consult was requested input is sincerely appreciated. Plan is to continue wound VAC as recommended by Dr. Mireles. 10/07/2019-patient is receiving IV cefepime 1 g every 12 hours, rifampin 300 mg p.o. every 8 hours. Afebrile. WBC count within normal limits. PICC line was removed yesterday because of redness and swelling at the site. 10/07-patient has a tunneled IJ placed this morning vital signs are stable afebrile WBC count within normal acute kidney injury and hyperkalemia resolved plan is to discharge him home today and he was advised to continue IV cefepime and hold rifampin until seen by Dr. Bond at [facility]. (3) Hyperkalemia Is this a current diagnosis for this admission?: Yes Plan: He received the usual medications for a potassium shift in the ER. I will also give him some patiromer and some IV fluids. We will repeat his potassium and keep him on telemetry. Lisinopril being held. 10/04/2019-patient came in with serum potassium of 6.7 with intervention improved to 5.8. To give him 1 dose of Kayexalate at this time. 10/04- potassium of 5.1 .. to clsely monitor potassium. 10/06/2019-serum potassium today is 4.5. Hyperkalemia is resolved. 10/07/19-serum potassium is 4.3 hyperkalemia is resolved. 10/08/2019-serum potassium is 4.0 hyperkalemia is resolved. (4) Obesity Qualifiers: Obesity type: unspecified obesity type Obesity classification: unspecified obesity classification Is this a current diagnosis for this admission?: No Plan: 1320-BMI is more than 40 diet exercise weight loss lifestyle modifications discussed with the patient. (5) Hypertension Qualifiers: Hypertension type: essential hypertension Qualified Code(s): I10 - Essential (primary) hypertension Is this a current diagnosis for this admission?: No Plan: 10/05/2019-has history of chronic essential hypertension blood pressure is 146/55. Plan is to resume his home medications at this time. 10/06/2019-blood pressure today is 125/72. Stable. Plan is to continue the present management at this time. 10/07/2019-blood pressure today is 120/77. Stable. Plan is to continue the present management at this time. 10/08/2019-blood pressure today's 136/46 stable. Lasix and lisinopril on hold because of JOSE and hyperkalemia. (6) Obesity (BMI 30-39.9) Is this a current diagnosis for this admission?: No Plan: 10/04--diet exercise weight loss lifestyle modifications discussed with the patient. High BMI most likely secondary to high calorie intake. Dietary consult will be requested. - Additional Information Discharge Diet: Diabetic Discharge Activity: Activity As Tolerated Referrals: LORRIE MOLINA MD, PHD [NO LOCAL MD] - Home Medications: Amlodipine Besylate 5 mg PO DAILY 12/27/16 Aspirin [Aspirin EC] 81 mg PO DAILY 12/27/16 Finasteride 5 mg PO QHS 12/27/16 Sertraline HCl 100 mg PO DAILY 12/27/16 Tamsulosin HCl 0.4 mg PO QHS 12/27/16 Tramadol HCl 50 mg PO BIDP PRN 12/27/16 Insulin Glargine,Hum.rec.anlog [Lantus (Pyxis) Insulin 100 Unit/1 ml 10 ml] 25 unit SUBCUT QHS 07/02/17 Acetaminophen [Acetaminophen Extra Strength] 500 mg PO Q4HP PRN 10/03/19 Ascorbic Acid 500 mg PO DAILY 10/03/19 Atorvastatin Calcium [Lipitor 40 mg Tablet] 40 mg PO QHS 10/03/19 Cefepime 2 gm/D5w RTU [Maxipime RTU 2 gm-D5w 50 ml Premix Bag] 2 gm IV Q8 10/03/19 Ergocalciferol (Vitamin D2) [Drisdol 50,000 unit (1.25MG) Capsule] 50,000 unit PO MOTH@1000 10/03/19 Ferrous Sulfate [Feosol 325 mg Tablet] 325 mg PO QHS 10/03/19 Gabapentin [Neurontin 300 mg Capsule] 300 mg PO Q12 10/03/19 Heparin Sodium,Porcine [Heparin Sodium] 5,000 unit SQ Q8 10/03/19 Insulin Lispro [Humalog Insulin (Lispro) 100 unit/mL] See Protocol SQ MEALS 10/03/19 Levothyroxine Sodium [Synthroid 0.05 mg Tablet] 0.05 mg PO Q6AM 10/03/19 Lidocaine HCl [Xylocaine 5% Ointment 35.44 gm] 1 applic TOP TIDP PRN 10/03/19 Sennosides/Docusate 8.6-50 mg [Senna Plus Tablet] 1 tab PO BID 10/03/19 History of Present Illiness History of Present Illness: JUDY SANTANA JR is a 69 year old male 69 year old male who had a 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 He said home health came out to see him and richardson some labs on him and sent him over here because his potassium was high. He said he has been feeling a little jittery for couple of days. He has not had any chest pain or palpitations. He has not missed any doses of his medications. He said he has been putting out some urine and takes Lasix twice a day. In the ER he was found to have a potassium of 6.7, elevated BUN, and worsening of his chronic kidney disease. He was not noted to have any EKG changes. 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 He said home health came out to see him and richardson some labs on him and sent him over here because his potassium was high. He said he has been feeling a little jittery for couple of days. He has not had any chest pain or palpitations. He has not missed any doses of his medications. He said he has been putting out some urine and takes Lasix twice a day. In the ER he was found to have a potassium of 6.7, elevated BUN, and worsening of his chronic kidney disease. He was not noted to have any EKG changes. 10/04/2019-patient is comfortably in the bed communicating well. Not in distress. He agreed to stay in the hospital for a few more days. He admitted with creatinine of 3.8 with IV fluids improved to 3.4. On admission potassium was 6.7 with intervention came down to 5.8. He is on Veltassa at this time. 10/05/19-patient is comfortably in the bed communicating well. Not in distress. Serum creatinine improved to 2.9. Serum potassium is improved to 5.1. Patient is receiving IV antibiotic therapy for right hip hardware infection. Patient has a wound VAC. Once stable patient prefers to go home. He is requesting for home health at the time of discharge. 10/06/2019-no acute events in the last 24 hours. Patient afebrile. WBC count is 5900 today. Creatinine improved to 2.74. Bicarb is still 11. Plan is to increase the Bicitra to 30 mL 3 times daily. 10/07/2019-no acute events in the last 24 hours. Afebrile. Kidney function continues to improve with creatinine of 2.19. Serum bicarb is 9 despite receiving Bicitra 30 mL p.o. 3 times daily. Patient is expressing desire to go home initially want to sign AMA. Later on he changed plans to decided to stay. 10/08/19-patient has tunneled IJ placed this morning for outpatient IV antibiotic therapy creatinine came down to 1.9, potassium is 4.0. Plan is to hold furosemide and lisinopril at this time. Patient is advised to follow-up with [facility] as an outpatient. Physical Exam Vital Signs: Temp Pulse Resp BP Pulse Ox 98.1 F 48 L 21 H 114/43 L 100 10/08/19 08:23 10/08/19 08:23 10/08/19 08:23 10/08/19 08:23 10/08/19 08:23 Intake & Output 10/07/19 10/08/19 10/09/19 06:59 06:59 06:59 Intake Total 910 1550 250 Output Total 1280 1500 Balance -370 50 250 Weight 116.1 kg 110.8 kg General appearance: PRESENT: no acute distress, well-developed Head exam: PRESENT: atraumatic Eye exam: PRESENT: PERRLA Mouth exam: PRESENT: neck supple Teeth exam: PRESENT: poor dentation Neck exam: ABSENT: carotid bruit, JVD, lymphadenopathy, thyromegaly Respiratory exam: PRESENT: decreased breath sounds Cardiovascular exam: PRESENT: RRR. ABSENT: diastolic murmur, rubs, systolic murmur GI/Abdominal exam: PRESENT: normal bowel sounds, soft. ABSENT: distended, guarding, mass, organolmegaly, rebound, tenderness Rectal exam: PRESENT: deferred Gentrourinary exam: PRESENT: indwelling catheter Extremities exam: PRESENT: other - Wound VAC is attached to the right hip. Neurological exam: PRESENT: alert, awake, oriented to person, oriented to place, oriented to time, oriented to situation, CN II-XII grossly intact. ABSENT: motor sensory deficit Results Laboratory Results: WBC 6.9 10^3/uL (4.0-10.5) 10/08/19 09:26 RBC 2.73 10^6/uL (4.35-5.55) L 10/08/19 09:26 Hgb 8.7 g/dL (13.5-17.0) L 10/08/19 09:26 Hct 25.7 % (37.9-51.0) L 10/08/19 09:26 MCV 94 fl (80-97) 10/08/19 09:26 MCH 32.1 pg (27.0-33.4) 10/08/19 09:26 MCHC 34.0 g/dL (32.0-36.0) 10/08/19 09:26 RDW 16.2 % (11.5-14.0) H 10/08/19 09:26 Plt Count 95 10^3/uL (150-450) L 10/08/19 09:26 Lymph % (Auto) 11.3 % (13-45) L 10/08/19 09:26 Campbell % (Auto) 8.2 % (3-13) 10/08/19 09:26 Eos % (Auto) 4.3 % (0-6) 10/08/19 09:26 Baso % (Auto) 1.1 % (0-2) 10/08/19 09:26 Absolute Neuts (auto) 5.2 10^3/uL (1.7-8.2) 10/08/19 09:26 Absolute Lymphs (auto) 0.8 10^3/uL (0.5-4.7) 10/08/19 09:26 Absolute Monos (auto) 0.6 10^3/uL (0.1-1.4) 10/08/19 09:26 Absolute Eos (auto) 0.3 10^3/uL (0.0-0.6) 10/08/19 09:26 Absolute Basos (auto) 0.1 10^3/uL (0.0-0.2) 10/08/19 09:26 Seg Neutrophils % 75.1 % (42-78) 10/08/19 09:26 Platelet Estimate Cancelled 10/07/19 08:48 Sodium 140.6 mmol/L (137-145) 10/08/19 09:26 Potassium 4.0 mmol/L (3.6-5.0) 10/08/19 09:26 Chloride 120 mmol/L (98-107) H 10/08/19 09:26 Carbon Dioxide 11 mmol/L (22-30) L 10/08/19 09:26 Anion Gap 10 (5-19) 10/08/19 09:26 BUN 58 mg/dL (7-20) H 10/08/19 09:26 Creatinine 1.90 mg/dL (0.52-1.25) H 10/08/19 09:26 Est GFR ( Amer) 43 (>60) L 10/08/19 09:26 Est GFR (MDRD) Non-Af 36 (>60) L 10/08/19 09:26 Glucose 121 mg/dL (75-110) H 10/08/19 09:26 POC Glucose 84 mg/dL (70-110) 10/08/19 16:06 Calcium 7.6 mg/dL (8.4-10.2) L 10/08/19 09:26 Phosphorus 7.1 mg/dL (2.5-4.5) H 10/03/19 18:07 Magnesium 1.5 mg/dL (1.6-2.3) L 10/08/19 09:26 Total Bilirubin 0.2 mg/dL (0.2-1.3) 10/08/19 09:26 Direct Bilirubin 0.0 mg/dL (0.0-0.4) 10/08/19 09:26 Neonat Total Bilirubin Not Reportable 10/08/19 09:26 Neonat Direct Bilirubin Not Reportable 10/08/19 09:26 Neonat Indirect Bili Not Reportable 10/08/19 09:26 AST 21 U/L (17-59) 10/08/19 09:26 ALT 16 U/L (<50) 10/08/19 09:26 Alkaline Phosphatase 76 U/L (38-126) 10/08/19 09:26 Total Protein 5.7 g/dL (6.3-8.2) L 10/08/19 09:26 Albumin 3.1 g/dL (3.5-5.0) L 10/08/19 09:26 PTH Intact 65.3 pg/mL (10.0-65.0) H 10/04/19 12:12 Urine Color YELLOW 10/03/19 19:35 Urine Appearance SLIGHTLY-CLOUDY 10/03/19 19:35 Urine pH 5.0 (5.0-9.0) 10/03/19 19:35 Ur Specific [place] 1.011 10/03/19 19:35 Urine Protein 30 mg/dL (NEGATIVE) H 10/03/19 19:35 Urine Glucose (UA) NEGATIVE mg/dL (NEGATIVE) 10/03/19 19:35 Urine Ketones NEGATIVE mg/dL (NEGATIVE) 10/03/19 19:35 Urine Blood SMALL (NEGATIVE) H 10/03/19 19:35 Urine Nitrite NEGATIVE (NEGATIVE) 10/03/19 19:35 Urine Bilirubin NEGATIVE (NEGATIVE) 10/03/19 19:35 Urine Urobilinogen NEGATIVE mg/dL (<2.0) 10/03/19 19:35 Ur Leukocyte Esterase NEGATIVE (NEGATIVE) 10/03/19 19:35 Urine WBC (Auto) 1 /HPF 10/03/19 19:35 Urine RBC (Auto) 0 /HPF 10/03/19 19:35 Squamous Epi Cells Auto 1 /HPF 10/03/19 19:35 Urine Ascorbic Acid NEGATIVE (NEGATIVE) 10/03/19 19:35 Slides for Path Review Cancelled 10/07/19 08:48 Impressions: Hip/Pelvis X-Ray 10/06/19 00:00 IMPRESSION: Right femoral Metallic femoral joint prosthesis component is present. Acetabular component appears to have been removed. No fracture identified. 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 Central Venous Line 10/08/19 00:00 IMPRESSION: Tunneled central line placement using ultrasound an fluoroscopic guidance as described. Plan Plan of Treatment: Acute kidney injury and hyperkalemia is resolved. Patient came in with right hip wound VAC and receiving IV cefepime and rifampin as an outpatient. As per Dr. Bond ID attending at [facility] rifampin is discontinued. Patient advised to follow-up with the [facility] ID next week. Time Spent: Greater than 30 Minutes Stroke Is this a Stroke Patient?: No Acute Heart Failure - Is this a Heart Failure Patient?: No
[2019-10-08 19:09] VITALS: BP 135/45
[2019-10-08] MEDS ORDERED: NORMAL SALINE 10 ML SDV (SCHEDULED) IV SCH (22:00)
--- NOTE | 2019-10-10 09:23 | RADIOLOGY REPORT (SQ) ---
EXAM DESCRIPTION: GUIDANCE ULTRASOUND; GUIDANCE FLUOROSCOPIC IMAGES COMPLETED DATE/TIME: 10/08/2019 3:23 pm REASON FOR STUDY: NEED FOR VASCULAR ACCESS COMPARISON: None. TECHNIQUE: Fluoroscopic and sonographic guidance was used intraoperatively. LIMITATIONS: None. FINDINGS: Intra procedure fluoroscopic and sonographic evaluation. Report is submitted for administ rative purposes only. IMPRESSION: Intra procedure imaging guidance. Please refer to the procedure report for full details regarding this examination. TECHNICAL DOCUMENTATION: JOB ID: [id number] 2010 [employer]- All Rights Reserved Reading location - IP/workstation name: [email or web address]
--- NOTE | 2019-10-10 09:23 | RADIOLOGY REPORT (SQ) ---
EXAM DESCRIPTION: GUIDANCE ULTRASOUND; GUIDANCE FLUOROSCOPIC IMAGES COMPLETED DATE/TIME: 10/08/2019 3:23 pm REASON FOR STUDY: NEED FOR VASCULAR ACCESS COMPARISON: None. TECHNIQUE: Fluoroscopic and sonographic guidance was used intraoperatively. LIMITATIONS: None. FINDINGS: Intra procedure fluoroscopic and sonographic evaluation. Report is submitted for administ rative purposes only. IMPRESSION: Intra procedure imaging guidance. Please refer to the procedure report for full details regarding this examination. TECHNICAL DOCUMENTATION: JOB ID: [id number] 2010 [employer]- All Rights Reserved Reading location - IP/workstation name: [email or web address]
== END 2019-10-08 19:46 | disposition home health service (06) | DRG 641 ==
LOC: ER 17:11 → EH 21:23 → 4N 23:30
PROVIDERS: ADMIT Family Medicine; ATTEND Internal Medicine
DX: E87.5 Hyperkalemia (principal); N17.9 Acute kidney failure, unspecified; I12.9 Hypertensive chronic kidney disease with stage 1 through stage 4 chronic kidney disease, or unspecified chronic kidney disease; E11.22 Type 2 diabetes mellitus with diabetic chronic kidney disease; N18.3 Chronic kidney disease, stage 3 (moderate); E66.9 Obesity, unspecified; T84.52XD Infection and inflammatory reaction due to internal left hip prosthesis, subsequent encounter; E78.5 Hyperlipidemia, unspecified; E86.0 Dehydration; M13.852 Other specified arthritis, left hip; M13.851 Other specified arthritis, right hip; M13.862 Other specified arthritis, left knee; M13.861 Other specified arthritis, right knee; Z87.891 Personal history of nicotine dependence; Z82.49 Family history of ischemic heart disease and other diseases of the circulatory system; I25.2 Old myocardial infarction; Z95.1 Presence of aortocoronary bypass graft; Z79.4 Long term (current) use of insulin; Z79.82 Long term (current) use of aspirin; Z88.8 Allergy status to other drugs, medicaments and biological substances
CPT/HCPCS: 36415; 36558; 76937; 77001; 80048; 80053; 81001; 82962; 83735; 83970; 84100; 85025; 85027; 87070; 93005; 93010; 96374; 96375; 99285; J0610; J0690; J0692; J1644; J1815; J2405; J3010; J3490; J7030